=== PATIENT | female | born 1960 | race Two or more races ===

== ENCOUNTER 2018-02-07 15:11 | Emergency (ER) | payer OTHER ==
--- NOTE | 2018-02-07 15:24 | PDOC ---
Rapid Medical Evaluation Time Seen by Provider: 02/07/18 15:19 Medical Evaluation: 02/07/18 15:19 I have performed a brief in-person evaluation of the patient The patient presents with a chief complaint of: abdominal pain x 3 days with no nausea, vomiting or diarrhea. Denies constipation, last bowel movement 20 minutes ago normal Pertinent physical exam findings are: even and unlabored breathing hypactive bowels generalize abdominal tenderness I have ordered the following: labs ordered The patient will proceed to the ED for further evaluation. Discharge Disposition - Referrals Referrals: Mik Cardenas MD [Primary Care Provider] - - Patient Instructions - Post Discharge Activity
[2018-02-07 15:32] VITALS: PULSE 100; TEMP 98.7; BMI 36.3
[2018-02-07] MEDS ORDERED: ONDANSETRON 4 MG/2 ML VIAL IVPUSH ONE ×2 (15:46→17:29)
[2018-02-07] MEDS ORDERED: morphine CARPU-JECT 4 MG/1 ML DISP.SYRIN IVPUSH ONE ×3 (16:00→20:42)
[2018-02-07] MEDS ORDERED: morphine SULFATE 4 MG/ML VIAL ONE ×3 (16:01→20:46)
[2018-02-07] MEDS ORDERED: ONDANSETRON 4 MG/2 ML VIAL ONE ×3 (16:01→19:09)
--- NOTE | 2018-02-07 16:06 | PDOC ---
History of Present Illness - General Chief Complaint: Pain, Acute Stated Complaint: ABD PAIN Time Seen by Provider: 02/07/18 15:19 History Source: Patient Exam Limitations: No Limitations - History of Present Illness Initial Comments: 02/07/18 16:01 57 year old female with PMH diverticulitis (diagnosed 1-2 days ago), methadone use, DM, lupus, RA, asthma presenting to ED for abdominal pain x2-3 days. Her pain is located to the LUQ and LLQ, radiating to her general abdomen, alleviated by morphine, aggravated by naproxen and food, constant, 10/10. She also complains of nausea, vomiting (2X today), fever (101F) and chills. She denies diarrhea, chest pain, shortness of breath, blood in stool, hematemesis. Pt reports she did not take medication for her pain today. Pt states she was recently seen at [facility] for similar pain yesterday or the day before, had a CT performed, was diagnosed with diverticulitis, was discharged with Clindamycin and Naproxenprescription. She states she has returned to [facility] multiple times for her pain. She states she has taken her antibiotics. Pt recently completed a 6 day course of prednisone 10 mg, prescribed on . PCP - Dr. Cardenas Allergies - NKDA LMP - years ago Past History - Past Medical History Allergies/Adverse Reactions: Allergies Allergy/AdvReac Type Severity Reaction Status Date / Time Penicillins Allergy Verified 02/07/18 15:21 tomato Allergy Verified 02/07/18 15:22 Home Medications: Ambulatory Orders Clindamycin [Cleocin -] 300 mg PO TID 02/07/18 Methadone [Dolophine -] 10 mg PO DAILY 02/07/18 Pregabalin [Lyrica -] 200 mg PO TID 02/07/18 COPD: No Diabetes: Yes (insulin dep) Other medical history: chr back pain - Suicide/Smoking/Psychosocial Hx Smoking History: Current every day smoker Information on smoking cessation initiated: No Review of Systems - Review of Systems Able to Perform ROS?: Yes Comments:: 02/07/18 16:51 General: admits to fever, chills. HEENT: denies sore throat, rhinorrhea, ear pain. Heart: denies chest pain, palpitations, syncope, lower extremity swelling, diaphoresis. Respiratory: denies shortness of breath, cough, sputum production, hemoptysis. Abdomen: admits to abdominal pain, nausea, vomiting. denies diarrhea, constipation, blood in stool. : denies dysuria, increased urinary frequency, hematuria, urinary incontinence. Back: denies back pain. Musculoskeletal: denies joint pain, muscle pain, joint swelling. Neurological: denies headache, dizziness, numbness, tingling, weakness. Skin: denies rash, laceration, abrasion. *Physical Exam - Vital Signs Last Vital Signs Temp Pulse Resp BP Pulse Ox 98.7 F 100 H 20 168/102 H 100 02/07/18 15:11 02/07/18 15:11 02/07/18 15:11 02/07/18 15:11 02/07/18 15:11 - Physical Exam Comments: 02/07/18 16:17 Constitutional: Well-nourished, Well-developed, appearing stated age. obese. HEENT: head is normocephalic, atraumatic. EOMI. PERRLA. Neck: supple. Full ROM. Heart: regular rhythm. no murmurs, rubs or gallops. Lungs: clear to auscultation bilaterally. no crackles, rhonchi or wheezing. no stridor. Abdomen: soft, protuberant. tenderness to palpation of epigastrium, LLQ, LUQ. decreased bowel sounds. no rebound, masses. murphys sign negative. pt reports abdominal pain with CVA tenderness examination. pt reports abdominal pain with movement of the stretcher. Extremities: Peripheral pulses intact. No lower extremity edema. Neurological: CN 2-12 grossly intact. Moves all four extremities. Psych: awake, alert, oriented x3. Follows commands. Answers questions appropriately. ED Treatment Course - LABORATORY CBC & Chemistry Diagram: 02/07/18 16:00 02/07/18 17:10 - RADIOLOGY Radiology Studies Ordered: Category Date Time Status ABDOMEN FLAT & UPRIGHT [RAD] Stat Radiology 02/07/18 15:59 Ordered Medical Decision Making - Medical Decision Making 02/07/18 16:08 57 year old female with PMH methadone use, DM, lupus, asthma, RA presenting to ED for LUQ/LLQ abdominal pain. Initial Vital Signs Temp Pulse Resp BP Pulse Ox 98.7 F 100 H 20 168/102 H 100 02/07/18 15:11 02/07/18 15:11 02/07/18 15:11 02/07/18 15:11 02/07/18 15:11 Afebrile. Mony tachycardia. Hypertensive 168/102, possibly secondary to pain. No hypoxia. Concern for perforated diverticulitis, severe pain, diagnosed diverticulitis recently, left sided tenderness. - Pending CT A/P. Concern for kidney stone, left sided pain, writhing around, cannot get comfortable. - Pending UA. Low concern for ACS, left upper abdominal pain, Hx DM, female, vomiting. - Pending EKG, cardiac enzymes. 02/07/18 16:35 EKG performed at 1619 - Rate 99, NSR, normal axis, ST elevation identified V1, V2. Q WAVES V1, V2. No prior to compare. No chest pain. Likely aneurysm from prior ND. - Pt states naproxen has been giving her abdominal pain, holding ASA. - Pending cardiac enzymes. CBC WBC 11.3 K/mm3 (4.0-10.0) H 02/07/18 16:00 RBC 4.67 M/mm3 (3.60-5.2) 02/07/18 16:00 Hgb 13.1 GM/dL (10.7-15.3) 02/07/18 16:00 Hct 40.5 % (32.4-45.2) 02/07/18 16:00 MCV 86.6 fl (80-96) 02/07/18 16:00 MCH 28.0 pg (25.7-33.7) 02/07/18 16:00 MCHC 32.4 g/dl (32.0-36.0) 02/07/18 16:00 RDW 18.0 % (11.6-15.6) H 02/07/18 16:00 Plt Count 435 K/MM3 (134-434) H 02/07/18 16:00 MPV 10.4 fl (7.5-11.1) 02/07/18 16:00 Absolute Neuts (auto) 9.3 K/mm3 (1.5-8.0) H 02/07/18 16:00 Neutrophils % 82.8 % (42.8-82.8) 02/07/18 16:00 Lymphocytes % 12.5 % (8-40) 02/07/18 16:00 Monocytes % 3.6 % (3.8-10.2) L 02/07/18 16:00 Eosinophils % 0.4 % (0-4.5) 02/07/18 16:00 Basophils % 0.7 % (0-2.0) 02/07/18 16:00 Nucleated RBC % 0 % (0-0) 02/07/18 16:00 Leukocytosis - WBC 11.3 Left shift - Absolute Neutrophils 9.3 02/07/18 16:39 Pt reassessed, states nausea has resolved, describes pain as 7/10, no tenderness to palpation of epigastrium, decreased tenderness to LUQ and LLQ, playing skee ball on her phone. 02/07/18 16:57 Flagyl and Levaquin one time dose ordered. Lab report hemolyzed jungle top, reordered CMP and cardiac enzymes. 02/07/18 17:04 Pt now complains of vaginal itching, clear/milky discharge since starting her antibiotics. She states she frequently gets yeast infections due to her diabetes , and her symptoms feel similar to prior. Physical examination of genital area - normal external appearance, no lesions, small amount of white discharge noted. - Diflucan oral held, possibility of prolonging QT, already on levaquin and Zofran. 02/07/18 17:35 Pt unable to tolerate PO juice intake, unlikely to tolerate oral contrast. 4 mg Zofran ordered. 02/07/18 18:06 CMP Sodium 134 mmol/L (136-145) L 02/07/18 17:10 Potassium 4.2 mmol/L (3.5-5.1) 02/07/18 17:10 Chloride 100 mmol/L (98-107) 02/07/18 17:10 Carbon Dioxide 23 mmol/L (21-32) 02/07/18 17:10 Anion Gap 11 MMOL/L (8-16) 02/07/18 17:10 BUN 9 mg/dL (7-18) 02/07/18 17:10 Creatinine 0.6 mg/dL (0.55-1.3) 02/07/18 17:10 Creat Clearance w eGFR > 60 (>60) 02/07/18 17:10 Random Glucose 336 mg/dL (74-106) H* 02/07/18 17:10 Calcium 8.9 mg/dL (8.5-10.1) 02/07/18 17:10 Total Bilirubin 0.4 mg/dL (0.2-1) 02/07/18 17:10 AST 23 U/L (15-37) 02/07/18 17:10 ALT 18 U/L (13-61) 02/07/18 17:10 Alkaline Phosphatase 152 U/L (45-117) H 02/07/18 17:10 Creatine Kinase 84 IU/L (26-192) 02/07/18 17:10 Troponin I < 0.02 ng/ml (0.00-0.05) 02/07/18 17:10 Total Protein 7.3 g/dl (6.4-8.2) 02/07/18 17:10 Albumin 3.1 g/dl (3.4-5.0) L 02/07/18 17:10 Lipase 158 U/L (73-393) 02/07/18 17:10 Hyperglycemia, hx diabetes, possibly due to active infection, hx DM. Troponin negative. Lipase normal. Pancreatitis unlikely. 02/07/18 19:57 Urine Test Results Urine Color Ltyellow 02/07/18 17:39 Urine Appearance Clear 02/07/18 17:39 Urine pH 5.0 (5.0-8.0) 02/07/18 17:39 Ur Specific Hess[place] 1.032 (1.001-1.035) 02/07/18 17:39 Urine Protein 1+ (NEGATIVE) H 02/07/18 17:39 Urine Glucose (UA) 3+ (NEGATIVE) H 02/07/18 17:39 Urine Ketones 2+ (NEGATIVE) H 02/07/18 17:39 Urine Blood Negative (NEGATIVE) 02/07/18 17:39 Urine Nitrite Negative (NEGATIVE) 02/07/18 17:39 Urine Bilirubin Negative (<2.0 mg/dL) 02/07/18 17:39 Ur Leukocyte Esterase Negative (NEGATIVE) 02/07/18 17:39 Ur Epithelial Cells Rare /HPF (FEW) 02/07/18 17:39 Urine Mucus Rare 02/07/18 17:39 Urine positive for protein, glucose, ketones. No evidence of UTI. 02/07/18 20:43 Pt reports 10/10 abdominal pain, generalized tenderness to palpation, worse in LLQ. Morphine ordered. 02/07/18 23:28 [facility] ED called, they stated pt did not have radiological evidence of diverticulitis, had diverticulosis with some inflammation around the pancreas. 02/07/18 23:34 Pt states she is hungry. PO challenge given. 02/08/18 00:04 Pt tolerated PO challenge, states she would like to go home. Pt will be discharged with follow up instructions and strict return precautions. Pt has been told to stop taking the antibiotics prescribed to her. *DC/Admit/Observation/Transfer Diagnosis at time of Disposition: Abdominal pain, Candidiasis - Discharge Dispostion Disposition: HOME Condition at time of disposition: Stable Decision to Admit order: No - Referrals Referrals: Mik Cardenas MD [Primary Care Provider] - - Patient Instructions Printed Discharge Instructions: DI for Abdominal Pain-Adult Additional Instructions: You were seen today for abdominal pain. Your CT of your abdomen revealed - 8.5 mm nodule in the left lower lobe of your lung. It is recommended you get a CT scan of your chest outpatient to follow up. A moderate amount of fecal material was seen on your CT scan, without evidence for diverticulitis. No abscess was identified. Stop taking the antibiotics prescribed to you. Take Tylenol over the counter for pain. Return to the Emergency Department for increasing pain, vomiting, fever, chills , chest pain, shortness of breath, passing out, or any other new, worsening or concerning symptoms. Follow up with your primary care doctor within 5 days. Call their office Saturday and make an appointment for next week. Your care is not complete until you follow up. - Post Discharge Activity Forms/Work/School Notes: Back to Work
--- NOTE | 2018-02-07 16:24 | PDOC ---
Attending Attestation - HPI HPI: 02/07/18 16:47 The patient is a 57-year-old female with a past medical history significant for DM, Lupus, RA and Methadone use presents to the emergency department with abdominal pain. The patient reports she was diagnosed recently with Diverticulitis at [facility], presents today with similar pain. The patient presents with L. sided abdominal pain, with a known modifying factor that aggravated the pain with food, with relief noted with Morphine. - Medical Decision Making 02/07/18 16:48 Documentation prepared by Latha Wang, acting as medical collector for Florencio Guerra MD. <Latha Wang - Last Filed: 02/07/18 16:47> - Resident Resident Name: Rahel Handy - ED Attending Attestation I have performed the following: I have examined & evaluated the patient, The case was reviewed & discussed with the resident, I agree w/resident's findings & plan, Exceptions are as noted - Physicial Exam PE: 02/07/18 17:56 Patient is awake and alert, morbidly obese, in moderate distress PERRLA, EOMI, no scleral icterus CTA RRR Abdomen is soft, nondistended, moderate epigastric, left upper and left lower quadrant tenderness to palpation, with intact bowel sounds bilaterally. No palpable hernias are appreciated; no CVA tenderness bilaterally; - Medical Decision Making 02/07/18 17:57 57-year-old female with history of diabetes, SLE, rheumatoid arthritis, recently diagnosed with diverticulitis at [facility] and treated with 2 days of by mouth clindamycin presents with worsening abdominal pain, numerous episodes of vomiting, persistent nausea and fever of 102 prior to arrival. I suspect failure of by mouth clindamycin. Will obtain CT with by mouth and IV contrast to rule out perforation versus abscess formation. We'll keep nothing by mouth. We'll administer IV fluids and IV antibiotics. Will admit 02/07/18 19:[address] We'll administer additional dose of Zofran. IV antibiotics administered. Awaiting CT results. 02/07/18 21:50 Patient reassessed. Patient is resting comfortably at this time. CT that and pelvis reveals a stable lung nodule measuring 8.5 mm. Diverticulosis but no diverticulitis is noted. There is no evidence of acute appendicitis. I contacted the BAR WAITER/WAITRESS at [facility] who reports the patient's CAT scan on February 05 of this year is similar without any evidence of diverticulitis. At this time, will observe patient and likely discharge if she tolerates by mouth. <Florencio Guerra - Last Filed: 02/07/18 21:51>
[2018-02-07 16:31] LABS: BASO % 0.7 % (0-2.0); EOS % 0.4 % (0-4.5); HEMATOCRIT 40.5 % (32.4-45.2); HEMOGLOBIN 13.1 GM/dL (10.7-15.3); LYMPH % 12.5 % (8-40); MCHC 32.4 g/dl (32.0-36.0); MEAN CELL VOLUME 86.6 fl (80-96); MEAN PLT VOLUME 10.4 fl (7.5-11.1); MONO % 3.6 % (3.8-10.2); NEUT % 82.8 % (42.8-82.8); PLATELET COUNT 435 K/MM3 (134-434); RBC 4.67 M/mm3 (3.60-5.2); WHITE BLOOD COUNT 11.3 K/mm3 (4.0-10.0)
[2018-02-07] MEDS ORDERED: SODIUM CHLORIDE 1,000 ML IV STA (16:32)
[2018-02-07 18:03] LABS: ALBUMIN 3.1 g/dl (3.4-5.0); ALK PHOS 152 U/L (45-117); ANION GAP 11 MMOL/L (8-16); BILIRUBIN,TOTAL 0.4 mg/dL (0.2-1); BLOOD UREA NITROGEN 9 mg/dL (7-18); CALCIUM 8.9 mg/dL (8.5-10.1); CHLORIDE 100 mmol/L (98-107); CO2 23 mmol/L (21-32); CREATININE 0.6 mg/dL (0.55-1.3); LIPASE 158 U/L (73-393); POTASSIUM 4.2 mmol/L (3.5-5.1); SGOT/AST 23 U/L (15-37); SGPT/ALT 18 U/L (13-61); SODIUM 134 mmol/L (136-145); TOT PROT 7.3 g/dl (6.4-8.2)
[2018-02-07 18:05] LABS: GLUCOSE,RANDOM 336 mg/dL (74-106)
[2018-02-07 18:51] LABS: URINE APPEARANCE CLEAR; URINE BILIRUBIN NEGATIVE (<2.0 mg/dL); URINE COLOR LTYELLOW; URINE GLUCOSE (UA) 3+ (NEGATIVE); URINE KETONE 2+ (NEGATIVE); URINE LEUK ESTERASE NEGATIVE (NEGATIVE); URINE NITRITE NEGATIVE (NEGATIVE); URINE UROBILINOGEN NEGATIVE mg/dL (0.2-1.0)
[2018-02-07 18:56] LABS: URINE PROTEIN 1+ (NEGATIVE)
[2018-02-07 19:01] LABS: EPI CELLS RARE /HPF (FEW); URINE MUCUS RARE
[2018-02-07] MEDS ORDERED: ONDANSETRON 4 MG/2 ML VIAL IVPB ONE (19:08)
[2018-02-07 22:11] VITALS: BP 141/77
--- NOTE | 2018-02-08 23:18 | EKG ---
Test Reason : Blood Pressure : / mmHG Vent. Rate : 099 BPM Atrial Rate : 099 BPM P-R Int : 166 ms QRS Dur : 114 ms QT Int : 380 ms P-R-T Axes : 062 -22 055 degrees QTc Int : 487 ms NORMAL SINUS RHYTHM POSSIBLE LEFT ATRIAL ENLARGEMENT LEFT VENTRICULAR HYPERTROPHY CANNOT RULE OUT SEPTAL INFARCT , AGE UNDETERMINED ABNORMAL ECG NO PREVIOUS ECGS AVAILABLE Confirmed by GUIDO GEORGE MD ([id number]) on 02/08/2018 11:18:05 PM Referred By: Confirmed By:GUIDO GEORGE MD
== END 2018-02-08 00:29 | disposition home or self-care (01) ==
LOC: JER 15:11
PROC: 3E033GC Introduction of Other Therapeutic Substance into Peripheral Vein, Percutaneous Approach (ICD-10-PCS; principal; 2018-02-07)
PROC: 3E033NZ Introduction of Analgesics, Hypnotics, Sedatives into Peripheral Vein, Percutaneous Approach (ICD-10-PCS; 2018-02-07)
PROC: 3E0337Z Introduction of Electrolytic and Water Balance Substance into Peripheral Vein, Percutaneous Approach (ICD-10-PCS; 2018-02-07)
PROC: 3E03329 Introduction of Other Anti-infective into Peripheral Vein, Percutaneous Approach (ICD-10-PCS; 2018-02-07)
DX: R10.9 Unspecified abdominal pain (principal); B37.9 Candidiasis, unspecified; E11.9 Type 2 diabetes mellitus without complications; M32.9 Systemic lupus erythematosus, unspecified; M06.9 Rheumatoid arthritis, unspecified; J45.909 Unspecified asthma, uncomplicated
CPT/HCPCS: 36415; 74177-TC; 80053; 81003; 81015; 82550; 83690; 84484; 85025; 87086; 93005; 93010; 96361; 96365; 96368; 96375; 96376; 99283-25; J7030

== ENCOUNTER 2018-02-26 14:04 | Inpatient (IN) | payer OTHER ==
--- NOTE | 2018-02-26 15:19 | PDOC ---
History of Present Illness - General Chief Complaint: Pain, Acute Stated Complaint: ULCER Time Seen by Provider: 02/26/18 15:17 - History of Present Illness Initial Comments: 57yo F with PMh of HTN, DM, lupus, RA, on methadone presenting with epigastric pain. Patient was sent by her PCP, Dr. Cardenas, for evaluation as he believes she has an ulcer. Pain started about two weeks ago, is rated 8/10 and is constant with intermittent worsening in severity. It gets worse with eating. Patient reports nausea and some vomiting. Last bowel movement was today and was normal formed brown stool without blood. About a week ago, patient reported constipation for which her gave her an unknown substance which helped clear her out and produced dark stool. No history of abdominal surgeries. Denies heavy NSAID use. Patient denies fevers, but reports chills. She also has had 2/10 non-radiating chest pain for the last two weeks which she associates with her epigastric pain. No shortness of breath, no hematuria or dysuria, no lightheadedness. Past History - Past Medical History Allergies/Adverse Reactions: Allergies Allergy/AdvReac Type Severity Reaction Status Date / Time Penicillins Allergy Severe Verified 02/26/18 17:52 tomato Allergy Verified 02/26/18 14:31 Home Medications: Ambulatory Orders Methadone [Dolophine -] 10 mg PO DAILY 02/07/18 Pregabalin [Lyrica -] 200 mg PO TID 02/07/18 Insulin Detemir [Levemir Flextouch] 94 unit SQ HS 02/26/18 Novolog 18 unit BID 02/26/18 COPD: No Diabetes: Yes (insulin dep) - Suicide/Smoking/Psychosocial Hx Smoking History: Current every day smoker Information on smoking cessation initiated: No Review of Systems - Review of Systems Comments:: Constitutional: no fever, +chills Cardiovascular: +chest pain, no palpitations Respiratory: no cough, no shortness of breath Gastrointestinal: +abdominal pain, +nausea, +vomiting, no diarrhea, no constipation Genitourinary: no dysuria, no frequency Musculoskeletal: no myalgia, no arthralgia Skin: no rash, no itching Neurologic: no headache, no dizziness *Physical Exam - Vital Signs Last Vital Signs Temp Pulse Resp BP Pulse Ox 98.3 F 103 H 22 H 126/74 97 02/26/18 14:32 02/26/18 14:32 02/26/18 14:32 02/26/18 14:32 02/26/18 14:32 - Physical Exam Comments: General: Awake, alert, and fully oriented, in no acute distress Head: no signs of trauma Eyes: EOMI, sclera anicteric ENT: Moist mucus membranes Neck: Normal ROM, supple Lungs: Lungs clear, Normal breath sounds Cardio: Regular rhythm, S1 and S2 present Abdomen: Tender to palpation in epigastrium, Soft, No guarding, no rebound, no masses Extremities: Normal range of motion, Distal pulses present SKIN: Warm, Dry, normal turgor Neurologic: Cranial nerves II through XII grossly intact. Normal speech Rectal: The skin is without erythema or induration. Skin tags present at 12 o clock. No external hemorrhoids, fissures, warts, or discharge. Sphincter tone normal. There are no masses palpated on digital exam. ED Treatment Course - LABORATORY CBC & Chemistry Diagram: 02/26/18 15:40 02/26/18 16:48 Medical Decision Making - Medical Decision Making 57yo F with PMh of HTN, DM, lupus, RA, on methadone presenting with epigastric pain. -DDX includes but not limited to peptic ulcer, duodenal ulcer, pancreatitis, cholecystitis, ACS, GERD, H. pylori -EKG: rate 80, QTc 463, NSR, no acute changes when compared to previous study on 02/07/18 -Labs: No anemia or leukocytosis, FOBT negative -CXR: no acute pathology -IV NS maintenance -NPO -Maalox, carafate, protonix: patient endorsing worsening pain. Repeat abdominal exam unchanged. Patient reports that she is hungry, however, she is NPO. Ordered 4 of morphine -Discussed patient with Dr. Oakes who accepted patient for admission under attending, Dr. Cardenas, as patient likely needs EGD 02/26/18 19:02 *DC/Admit/Observation/Transfer Diagnosis at time of Disposition: Epigastric abdominal pain - Discharge Dispostion Condition at time of disposition: Stable Decision to Admit order: Yes - Referrals Referrals: Mik Cardenas MD [Primary Care Provider] - Roberto Lebron DO [Staff Physician] - - Patient Instructions - Post Discharge Activity
[2018-02-26 16:09] LABS: BASO % 0.8 % (0-2.0); EOS % 3.3 % (0-4.5); HEMATOCRIT 37.1 % (32.4-45.2); LYMPH % 23.4 % (8-40); MCHC 32.2 g/dl (32.0-36.0); MEAN CELL VOLUME 86.9 fl (80-96); MEAN PLT VOLUME 9.8 fl (7.5-11.1); MONO % 3.9 % (3.8-10.2); NEUT % 68.6 % (42.8-82.8); PLATELET COUNT 416 K/MM3 (134-434); RBC 4.27 M/mm3 (3.60-5.2); WHITE BLOOD COUNT 9.9 K/mm3 (4.0-10.0)
--- NOTE | 2018-02-26 16:14 | PDOC ---
Attending Attestation - HPI HPI: Pt is a57 F, PMHx of diverticulitis, methadone use, DM, lupus, RA, asthma, HTN, who was sent by her PCP for abdominal pain. Patient describes the pain as intermittent, epigastric, increasing severity, rates 8/10 with associated nausea, vomit and chills. Denies fever, diarrhea. PCP: Dr. Cardenas. <Marychuy Hayes - Last Filed: 02/26/18 17:04> - Resident Resident Name: Day To - ED Attending Attestation I have performed the following: I have examined & evaluated the patient, The case was reviewed & discussed with the resident, I agree w/resident's findings & plan, Exceptions are as noted - Physicial Exam PE: 02/26/18 17:47 Patient is awake and alert, obese, in mild distress Normocephalic and atraumatic PERRLA, EOMI, no scleral icterus CTA RRR Abdomen is soft, distended, mild to moderate epigastric and left upper quadrant tenderness to palpation without guarding rebound; bowel sounds are present in all 4 quadrants; no CVA tenderness - Medical Decision Making 02/26/18 17:48 57-year-old female with multiple comorbidities presents with several weeks of worsening epigastric and left upper quadrant pain that is exacerbated immediately postprandially. Patient also endorses history of several days of melena. In the ER, patient is awake and alert, mildly tachycardic with hematocrit of 37 (previously noted hematocrit was 40); differential diagnoses includes esophagitis versus gastritis versus peptic ulcer disease. We'll administer PPIs and Carafate. Will keep nothing by mouth with IV fluid maintenance. Will consult GI. Likely admission. <Florencio Guerra - Last Filed: 02/26/18 17:48>
[2018-02-26] MEDS ORDERED: MAG HYDROX/AL HYDROX/SIMETH -MYLANTA- ORAL SUSPENSION PO ONE (16:17)
[2018-02-26] MEDS ORDERED: PANTOPRAZOLE SODIUM 40 MG VIAL IVPUSH ONE (16:17)
[2018-02-26] MEDS ORDERED: SUCRALFATE 1 GM/10 ML UNIT DOSE CUPS PO ONE (16:19)
[2018-02-26 16:41] LABS: INR 1.01 (0.83-1.09); PROTHROMBIN TIME (PATIENT) 11.9 SEC (9.7-13.0)
[2018-02-26 16:44] LABS: URINE APPEARANCE CLEAR; URINE COLOR AMBER; URINE GLUCOSE (UA) NEGATIVE (NEGATIVE); URINE KETONE TRACE (NEGATIVE); URINE LEUK ESTERASE TRACE (NEGATIVE); URINE NITRITE NEGATIVE (NEGATIVE); URINE PROTEIN 2+ (NEGATIVE)
[2018-02-26] MEDS ORDERED: ONDANSETRON 4 MG/2 ML VIAL IVPUSH ONE (16:56)
[2018-02-26 17:11] LABS: EPI CELLS RARE /HPF (FEW); URINE HYALINE CAST 12 /lpf; URINE MUCUS MODERATE
[2018-02-26] MEDS ORDERED: SODIUM CHLORIDE 1,000 ML IV SCH (17:15)
[2018-02-26] MEDS ORDERED: ONDANSETRON 4 MG/2 ML VIAL ONE (17:25)
[2018-02-26] MEDS ORDERED: MAG HYDROX/AL HYDROX/SIMETH 30 ML UNIT-DOSE CUP ONE (17:25)
[2018-02-26] MEDS ORDERED: PANTOPRAZOLE SODIUM 40 MG VIAL ONE (17:26)
[2018-02-26 17:52] LABS: ALBUMIN 2.8 g/dl (3.4-5.0); ALK PHOS 164 U/L (45-117); ANION GAP 6 MMOL/L (8-16); BILIRUBIN,TOTAL 0.1 mg/dL (0.2-1); BLOOD UREA NITROGEN 9 mg/dL (7-18); CALCIUM 9.1 mg/dL (8.5-10.1); CHLORIDE 103 mmol/L (98-107); CO2 29 mmol/L (21-32); CREATININE 0.6 mg/dL (0.55-1.3); GLUCOSE,RANDOM 112 mg/dL (74-106); POTASSIUM 4.2 mmol/L (3.5-5.1); SGOT/AST 29 U/L (15-37); SGPT/ALT 22 U/L (13-61); SODIUM 138 mmol/L (136-145); TOT PROT 6.9 g/dl (6.4-8.2)
[2018-02-26 17:54] LABS: HCG,QUALITATIVE URINE Negative
[2018-02-26] MEDS ORDERED: morphine CARPU-JECT 4 MG/1 ML DISP.SYRIN IVPUSH ONE (18:56)
[2018-02-26] MEDS ORDERED: morphine SULFATE 4 MG/ML VIAL ONE (19:10)
--- NOTE | 2018-02-26 20:21 | HP ---
CHIEF COMPLAINT: abdominal pain PCP: Dr. 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 Who presents to the ED with worsening epigastric cramping pain radiating to the left upper quadrant with nausea x several days, with an episode of brown emesis- bilious. Patient also reports an episode of melena several days ago now resolved. Patient reports being treated at [facility] and was diagnosed as having diverticulosis. She reports being seen here on February 07 for same complaint. Patient reports taking her 's Docusate last Saturday secondary to her being constipated. She states" I was cleaned out I went to the bathroom all day ". Patient reports last BM yesterday Brown-soft. Patient denies fever, chills, cough, dizziness, headache, SOB, CP, hematochezia, hematuria or dysuria. Patient denies eating undercooked meat. Patient reports last Colonoscopy 2016- result neg (per pt). Patient has never had an EGD. ER course was notable for: (1) Stool Occult- neg (2) Lipase- 123 (3) Chest Xray- no acute pathology Recent Travel: None PAST MEDICAL HISTORY: See HPI PAST SURGICAL HISTORY: Social History: Smoking: Cigarettes 1PPD Alcohol: Denies Drugs: Former- Heroin 25 yrs ago on Methadone Family History: Father: DM, Renal Failure, Amputee Mother: Lung Ca Siblings: Alive and Well Maternal Grandmother: Stomach Ca, DM Paternal Grandmother: Breast Ca, DM Allergies Penicillins Allergy (Severe, Verified 02/26/18 17:52) "Heart stopped" when she was a baby, as per pt tomato Allergy (Verified 02/26/18 14:31) HOME MEDICATIONS: Home Medications Medication Instructions Recorded Methadone [Dolophine -] 10 mg PO DAILY 02/07/18 Pregabalin [Lyrica -] 200 mg PO TID 02/07/18 Insulin Detemir [Levemir Flextouch] 94 unit SQ HS 02/26/18 Novolog 18 unit BID 02/26/18 REVIEW OF SYSTEMS CONSTITUTIONAL: Absent: fever, chills, diaphoresis, generalized weakness, malaise, loss of appetite, weight change HEENT: Absent: rhinorrhea, nasal congestion, throat pain, throat swelling, difficulty swallowing, mouth swelling, ear pain, eye pain, visual changes CARDIOVASCULAR: Absent: chest pain, syncope, palpitations, irregular heart rate, lightheadedness , peripheral edema RESPIRATORY: Absent: cough, shortness of breath, dyspnea with exertion, orthopnea, wheezing, stridor, hemoptysis GASTROINTESTINAL: abdominal pain, nausea, vomiting, constipation, melena Absent: abdominal distension, diarrhea, hematochezia GENITOURINARY: Absent: dysuria, frequency, urgency, hesitancy, hematuria, flank pain, genital pain MUSCULOSKELETAL: Absent: myalgia, arthralgia, joint swelling, back pain, neck pain SKIN: Absent: rash, itching, pallor HEMATOLOGIC/IMMUNOLOGIC: Absent: easy bleeding, easy bruising, lymphadenopathy, frequent infections ENDOCRINE: Absent: unexplained weight gain, unexplained weight loss, heat intolerance, cold intolerance NEUROLOGIC: Absent: headache, focal weakness or paresthesias, dizziness, unsteady gait, seizure, mental status changes, bladder or bowel incontinence PSYCHIATRIC: Absent: anxiety, depression, suicidal or homicidal ideation, hallucinations. PHYSICAL EXAMINATION Vital Signs - 24 hr 02/26/18 02/26/18 14:32 19:53 Temperature 98.3 F 98.4 F Pulse Rate 103 H Pulse Rate [ 87 Left Radial] Respiratory 22 H 17 Rate Blood Pressure 126/74 Blood Pressure 156/66 [Right Arm] O2 Sat by Pulse 97 99 Oximetry (%) GENERAL: Awake, alert, and fully oriented, in no acute distress. HEAD: Normal with no signs of trauma. EYES: Pupils equal, round and reactive to light, extraocular movements intact, sclera anicteric, conjunctiva clear. No lid lag. EARS, NOSE, THROAT: Dry mucous membranes. Ears normal, nares patent, oropharynx clear without exudates. NECK: Normal range of motion, supple without lymphadenopathy, JVD, or masses. LUNGS: Breath sounds equal, clear to auscultation bilaterally. No wheezes, and no crackles. No accessory muscle use. HEART: Regular rate and rhythm, normal S1 and S2 without murmur, rub or gallop. ABDOMEN: Obese, soft, epigastric tenderness,hypoactive bowel sounds, not distended, no guarding, no rebound, no masses. No hepatomegaly or splenomegaly. MUSCULOSKELETAL: Normal range of motion at all joints. No bony deformities or tenderness. No CVA tenderness. UPPER EXTREMITIES: 2+ pulses, warm, well-perfused. No cyanosis. No clubbing. No peripheral edema. LOWER EXTREMITIES: 2+ pulses, warm, well-perfused. No calf tenderness. No peripheral edema. NEUROLOGICAL: Cranial nerves II-XII intact. Normal speech. Gait not observed. PSYCHIATRIC: Cooperative. Good eye contact. Appropriate mood and affect. SKIN: Warm, dry, normal turgor, no rashes or lesions noted, normal capillary refill. Laboratory Results - last 24 hr 02/26/18 02/26/18 02/26/18 15:40 15:40 15:40 WBC 9.9 RBC 4.27 Hgb 12.0 Hct 37.1 MCV 86.9 MCH 28.0 MCHC 32.2 RDW 18.0 H Plt Count 416 MPV 9.8 Absolute Neuts (auto) 6.8 Neutrophils % 68.6 Lymphocytes % 23.4 D Monocytes % 3.9 Eosinophils % 3.3 D Basophils % 0.8 Nucleated RBC % 0 PT with INR 11.90 INR 1.01 Sodium Cancelled Potassium Cancelled Chloride Cancelled Carbon Dioxide Cancelled Anion Gap Cancelled BUN Cancelled Creatinine Cancelled Creat Clearance w eGFR Cancelled Random Glucose Cancelled Calcium Cancelled Total Bilirubin Cancelled AST Cancelled ALT Cancelled Alkaline Phosphatase Cancelled Troponin I Total Protein Cancelled Albumin Cancelled Urine Color Urine Appearance Urine pH Ur Specific [place] Urine Protein Urine Glucose (UA) Urine Ketones Urine Blood Urine Nitrite Urine Bilirubin Urine Urobilinogen Ur Leukocyte Esterase Urine WBC (Auto) Urine RBC (Auto) Ur Epithelial Cells Hyaline Casts Urine Mucus Urine HCG, Qual Stool Occult Blood Blood Type Antibody Screen 02/26/18 02/26/18 02/26/18 16:00 16:16 16:48 WBC RBC Hgb Hct MCV MCH MCHC RDW Plt Count MPV Absolute Neuts (auto) Neutrophils % Lymphocytes % Monocytes % Eosinophils % Basophils % Nucleated RBC % PT with INR INR Sodium 138 Potassium 4.2 Chloride 103 Carbon Dioxide 29 Anion Gap 6 L BUN 9 Creatinine 0.6 Creat Clearance w eGFR > 60 Random Glucose 112 H Calcium 9.1 Total Bilirubin 0.1 L AST 29 ALT 22 Alkaline Phosphatase 164 H Troponin I < 0.02 Total Protein 6.9 Albumin 2.8 L Urine Color [place] Urine Appearance Clear Urine pH 5.0 Ur Specific [place] 1.028 Urine Protein 2+ H Urine Glucose (UA) Negative Urine Ketones Trace H Urine Blood Negative Urine Nitrite Negative Urine Bilirubin 2.0 Urine Urobilinogen 2.0 H Ur Leukocyte Esterase Trace Urine WBC (Auto) 3 Urine RBC (Auto) 1 Ur Epithelial Cells Rare Hyaline Casts 12 Urine Mucus Moderate Urine HCG, Qual Negative Stool Occult Blood Blood Type O POSITIVE Antibody Screen Negative 02/26/18 18:09 WBC RBC Hgb Hct MCV MCH MCHC RDW Plt Count MPV Absolute Neuts (auto) Neutrophils % Lymphocytes % Monocytes % Eosinophils % Basophils % Nucleated RBC % PT with INR INR Sodium Potassium Chloride Carbon Dioxide Anion Gap BUN Creatinine Creat Clearance w eGFR Random Glucose Calcium Total Bilirubin AST ALT Alkaline Phosphatase Troponin I Total Protein Albumin Urine Color Urine Appearance Urine pH Ur Specific [place] Urine Protein Urine Glucose (UA) Urine Ketones Urine Blood Urine Nitrite Urine Bilirubin Urine Urobilinogen Ur Leukocyte Esterase Urine WBC (Auto) Urine RBC (Auto) Ur Epithelial Cells Hyaline Casts Urine Mucus Urine HCG, Qual Stool Occult Blood Negative Blood Type Antibody Screen ASSESSMENT/PLAN: This is a 57 y/o woman with a PMHx of HTN, DM, Lupus, RA, Asthma, Former Heroin Abuse (on Methadone). Placed in Observation for Intractable Epigastric Abdominal Pain for further evaluation of their emergent condition. Plan: FEN D51/2NS@75ml/hr Replete lytes prn NPO DVT ppx OOB SCDs Consider AC if LOS > 48 hrs Code Status: Full Code Dispo: Observation Problem List - Problem (1) Epigastric abdominal pain Assessment/Plan: ?ulcer vs gastritis No leukocytosis, Lipase-nl Amylase-pending Appreciate GI consult IVF Zofran prn Tylenol prn PPI Consider Morphine Sulfate judiciously PS 8-10 Repeat CBC, BMP in am NPO Code(s): R10.13 - EPIGASTRIC PAIN (2) HTN (hypertension) Assessment/Plan: Sub-optimal, now controlled Monitor BP No current meds Consider Thiazide, KIERRA Monitor renal function Code(s): I10 - ESSENTIAL (PRIMARY) HYPERTENSION (3) Diabetes mellitus Assessment/Plan: Stable BGMs Hold Levemir and Novolog for now secondary to pt is NPO, Glucose 112 Consider Endocrinology consult for insulin regimen adjustment on high dose of Long Acting HgbA1c in am Code(s): E11.9 - TYPE 2 DIABETES MELLITUS WITHOUT COMPLICATIONS (4) Asthma Assessment/Plan: Stable No active flares Albuterol neb prn Peak flows Code(s): J45.909 - UNSPECIFIED ASTHMA, UNCOMPLICATED (5) Lupus Assessment/Plan: Will continue to monitor and treat with interventions accordingly No current med Code(s): L93.0 - DISCOID LUPUS ERYTHEMATOSUS (6) Arthritis, rheumatoid Code(s): M06.9 - RHEUMATOID ARTHRITIS, UNSPECIFIED (7) Depression Assessment/Plan: Continue Duloxetine, Citalopram Monitor QT/QTc for prolonged QT f/u with Psych in outpatient as needed Code(s): F32.9 - MAJOR DEPRESSIVE DISORDER, SINGLE EPISODE, UNSPECIFIED (8) History of heroin abuse Assessment/Plan: - Continue Methadone Will have Day Team verify dosing with [facility] Code(s): Z87.898 - PERSONAL HISTORY OF OTHER SPECIFIED CONDITIONS Visit type - Emergency Visit Emergency Visit: Yes ED Registration Date: 02/26/18 Care time: The patient presented to the Emergency Department on the above date and was hospitalized for further evaluation of their emergent condition. - New Patient This patient is new to me today: Yes Date on this admission: 02/26/18 - Critical Care Critical Care patient: No
[2018-02-26] MEDS ORDERED: FAMOTIDINE 20 MG/50 ML IVPB 20 MG/50 ML MG IVPB ONE (21:06)
[2018-02-26] MEDS ORDERED: HEPARIN NA (PORCINE) 5,000 UNITS/ML 1ML VIAL ONE (21:06)
[2018-02-26] MEDS: DEXTROSE 5%-0.45% SALINE 1,000 ML IV SCH (21:20)
[2018-02-26] MEDS: DULoxetine HCL 30 MG CAPSULE.DR (FP) PO SCH (23:50)
[2018-02-26] MEDS: PREGABALIN 100 MG CAPSULE PO SCH (23:50)
[2018-02-27 00:44] VITALS: BMI 45.8
[2018-02-27] MEDS: DULoxetine HCL 30 MG CAPSULE.DR (FP) PO SCH ×3 (06:19→21:18)
[2018-02-27] MEDS: PREGABALIN 100 MG CAPSULE PO SCH ×3 (06:19→21:18)
[2018-02-27] MEDS ORDERED: ACETAMINOPHEN 1000 MG/100 ML VIAL (NON FORMULARY) IVPB PRN (07:07)
[2018-02-27 07:15] LABS: BASO % 0.6 % (0-2.0); EOS % 3.8 % (0-4.5); HEMATOCRIT 36.9 % (32.4-45.2); HEMOGLOBIN 11.6 GM/dL (10.7-15.3); LYMPH % 31.4 % (8-40); MCH 27.7 pg (25.7-33.7); MCHC 31.4 g/dl (32.0-36.0); MEAN CELL VOLUME 88.3 fl (80-96); MEAN PLT VOLUME 9.5 fl (7.5-11.1); MONO % 4.6 % (3.8-10.2); NEUT % 59.6 % (42.8-82.8); PLATELET COUNT 364 K/MM3 (134-434); RBC 4.18 M/mm3 (3.60-5.2); RDW 17.9 % (11.6-15.6); WHITE BLOOD COUNT 8.8 K/mm3 (4.0-10.0)
[2018-02-27] MEDS ORDERED: METHADONE HCL 10 MG TABLET PO SCH (07:15)
[2018-02-27 07:37] LABS: AMYLASE 40 U/L (25-115); ANION GAP 5 MMOL/L (8-16); BLOOD UREA NITROGEN 7 mg/dL (7-18); CALCIUM 8.8 mg/dL (8.5-10.1); CHLORIDE 107 mmol/L (98-107); CO2 27 mmol/L (21-32); CREATININE 0.4 mg/dL (0.55-1.3); GLUCOSE,RANDOM 128 mg/dL (74-106); POTASSIUM 4.2 mmol/L (3.5-5.1); SODIUM 138 mmol/L (136-145)
--- NOTE | 2018-02-27 08:50 | CON.GI ---
Consult Consult Specialty:: GI Referred by:: Dr. Cardenas Reason for Consultation:: Epigastric pain - History of Present Illness Chief Complaint: Upper abdominal pain History of Present Illness: 57F admitted for evaluation of upper abdominal pain. She states that her pain started about a month ago and has been constant at times. Initially there was associated vomiting and now she experiences persistent nausea. She had an unrevealing contrast CT scan of the abdomen and pelvis 02/07/18 aside from a lung nodule. She denies OTC NSAID use aside from ASA 81mg daily. She denies associated rectal bleeding, melena, diarrhea, unintentional weight loss, food fear, fevers/chills. She states that her blood glucose is "always off the charts" and remembers it being 600 about 3 days ago. She believes that she had a colonoscopy 2 years ago at [facility] that was "OK". She has never had an upper endoscopy. There is no family history of colorectal cancer or other GI malignancy. She is on methadone but denies h/o IVDA/DA - History Source History Provided By: Patient, Medical Record Limitations to Obtaining History: No Limitations - Past Medical History ...: No Rheumatology: Yes: Lupus, Rheumatoid Arthritis Endocrine: Yes: Diabetes Mellitus Additional Medical History: Obesity - Past Surgical History Additional Surgical History: Denies - Alcohol/Substance Use Hx Alcohol Use: No History of Substance Use: reports: None - Smoking History Smoking history: Current some day smoker Have you smoked in the past 12 months: No Aproximately how many cigarettes per day: 3 - Social History Usual Living Arrangement: With Spouse ADL: Independent Place of : [facility] History of Recent Travel: No Home Medications - Allergies Allergies/Adverse Reactions: Allergies Allergy/AdvReac Type Severity Reaction Status Date / Time Penicillins Allergy Severe Verified 02/26/18 17:52 tomato Allergy Verified 02/26/18 14:31 - Home Medications Home Medications: Ambulatory Orders Methadone [Dolophine -] 10 mg PO DAILY 02/07/18 Pregabalin [Lyrica -] 200 mg PO TID 02/07/18 Insulin Detemir [Levemir Flextouch] 94 unit SQ HS 02/26/18 Novolog 18 unit BID 02/26/18 Family Disease History - Family Disease History Family Disease History: Other: Father (: diabetic complications), Mother ( : 70's: Lung Ca), Brother (2, healthy), Sister (2, healthy), Son (1, healthy ), Daughter (2. healthy) Other Family History: No family history of colorectal cancer or other GI malignancy Review of Systems - Review of Systems Constitutional: denies: Unintentional Wgt. Loss Cardiovascular: denies: Chest Pain Respiratory: denies: Cough Gastrointestinal: reports: Abdominal Pain, Nausea, Vomiting (resolved). denies : Constipation, Diarrhea, Dysphagia, Melena, Rectal Bleeding Physical Exam-GI Vital Signs: Vital Signs Temperature 98.4 F 02/27/18 06:42 Pulse Rate 80 02/27/18 06:42 Respiratory Rate 20 02/27/18 06:42 Blood Pressure 126/72 02/27/18 06:42 O2 Sat by Pulse Oximetry (%) 98 02/27/18 05:00 Constitutional: Yes: Calm Eyes: No: Sclera Icterus Cardiovascular: Yes: Regular Rate and Rhythm. No: Murmur Respiratory: Yes: CTA Bilaterally Gastrointestinal Inspection: No: Distention, Scars ...Auscultate: Yes: Normoactive Bowel Sounds ...Palpate: Yes: Soft, Tenderness (marked TTP in epigastrium) ...Percussion: No: Tympanitic ...Rectal Exam: Yes: Other ([employer] present: no external lesions, no masses, light brown stool, guaiac negative) Edema: No (No LE edema) Neurological: Yes: Alert, Oriented Labs: CBC, BMP 02/27/18 06:00 02/27/18 06:00 INR, PTT INR 1.01 (0.83-1.09) 02/26/18 15:40 Hepatic Panel Total Bilirubin 0.1 mg/dL (0.2-1) L 02/26/18 16:48 AST 29 U/L (15-37) 02/26/18 16:48 ALT 22 U/L (13-61) 02/26/18 16:48 Alkaline Phosphatase 164 U/L (45-117) H 02/26/18 16:48 Albumin 2.8 g/dl (3.4-5.0) L 02/26/18 16:48 Problem List - Problems (1) Epigastric pain Assessment/Plan: Of unclear etiology. I suspect that her poor glycemic control is likely playing a role by altering her mitolity leading to gastroparesis I have ordered UGIS as well as abd US (particularly given elevated ALP) and doppler of portal vein. Advance to diabetic clears pending findings from the above Discussed EGD if the above unrevealing. Discussed potential riskls of the procedure like but not limited to bleeding, perforation requiring surgery to repair, infection sedation medication effects all of which could be potentially life threatening. She has agreed to the procedure. Check GGT. If normal, non-liver etiology of elevated ALP would need to be excluded ie. bone source, per PMD Follow-up of lung nodule noted on previous CT scan Protonix 40mg PO daily Glycemic control Code(s): R10.13 - EPIGASTRIC PAIN
[2018-02-27] MEDS: CITALOPRAM HYDROBROMIDE 20 MG TABLET (FP) PO SCH (09:47)
--- NOTE | 2018-02-27 10:25 | PN ---
Progress Note, Physician Chief Complaint: ASLEEP COMFORTABLE EVENTS AND NOTES REVIEWED - Current Medication List Current Medications: Active Medications Acetaminophen (Ofirmev Injection -) 1,000 mg IVPB Q6H PRN PRN Reason: PAIN OR FEVER Citalopram Hydrobromide (Celexa -) 20 mg PO DAILY [facility] Duloxetine HCl (Cymbalta -) 30 mg PO TID [facility] Last Admin: 02/27/18 06:19 Dose: 30 mg Dextrose/Sodium Chloride (D5-1/2ns -) 1,000 mls @ 75 mls/hr IV ASDIR [facility] Last Admin: 02/26/18 21:20 Dose: 75 mls/hr Methadone HCl (Dolophine -) 10 mg PO DAILY@0600 [facility] Nicotine (Nicoderm Patch -) 14 mg TD DAILY [facility] Pantoprazole Sodium (Protonix Iv) 40 mg IVPUSH DAILY [facility] Pregabalin (Lyrica -) 200 mg PO TID [facility] Last Admin: 02/27/18 06:19 Dose: 200 mg - Objective Vital Signs: Vital Signs Temperature 98.8 F 02/27/18 09:53 Pulse Rate 83 02/27/18 09:53 Respiratory Rate 18 02/27/18 09:53 Blood Pressure 122/65 02/27/18 09:53 O2 Sat by Pulse Oximetry (%) 98 02/27/18 05:00 Constitutional: Yes: Mild Distress Eyes: Yes: WNL HENT: Yes: WNL Neck: Yes: WNL Cardiovascular: Yes: WNL Respiratory: Yes: WNL Gastrointestinal: Yes: Tenderness, Tenderness, Epigastrium Genitourinary: Yes: WNL Musculoskeletal: Yes: Back Pain Extremities: Yes: WNL Edema: Yes Peripheral Pulses WNL: Yes Integumentary: Yes: WNL Wound/Incision: Yes: Clean/Dry Neurological: Yes: Pre-Existing Deficit ...Motor Strength: LLE, RLE Psychiatric: Yes: Other Labs: CBC, BMP 02/27/18 06:00 02/27/18 06:00 INR, PTT INR 1.01 (0.83-1.09) 02/26/18 15:40 Problem List - Problems (1) Methadone dependence Code(s): F11.20 - OPIOID DEPENDENCE, UNCOMPLICATED (2) Arthritis, rheumatoid Code(s): M06.9 - RHEUMATOID ARTHRITIS, UNSPECIFIED (3) Asthma Code(s): J45.909 - UNSPECIFIED ASTHMA, UNCOMPLICATED (4) Diabetes mellitus Code(s): E11.9 - TYPE 2 DIABETES MELLITUS WITHOUT COMPLICATIONS (5) Epigastric abdominal pain Code(s): R10.13 - EPIGASTRIC PAIN (6) HTN (hypertension) Code(s): I10 - ESSENTIAL (PRIMARY) HYPERTENSION (7) Abdominal pain Code(s): R10.9 - UNSPECIFIED ABDOMINAL PAIN Assessment/Plan GI WORKUP IN PROGRESS AGREE WITH DR DUNAWAY THAT THIS MAYBE GASTROPARESIS EGD IN AM AWAIT GI SERIES AND SONO DVT PROPHYLAXIS OOB TO CHAIR SMOKING CESSATION
[2018-02-27] MEDS: PANTOPRAZOLE SODIUM 40 MG VIAL IVPUSH SCH (11:47)
--- NOTE | 2018-02-27 11:47 | EKG ---
Test Reason : Blood Pressure : / mmHG Vent. Rate : 080 BPM Atrial Rate : 080 BPM P-R Int : 152 ms QRS Dur : 116 ms QT Int : 402 ms P-R-T Axes : 054 -03 071 degrees QTc Int : 463 ms NORMAL SINUS RHYTHM POSSIBLE LEFT ATRIAL ENLARGEMENT LEFT VENTRICULAR HYPERTROPHY WITH QRS WIDENING CANNOT RULE OUT SEPTAL INFARCT (CITED ON OR BEFORE 07-FEB-2018) ABNORMAL ECG WHEN COMPARED WITH ECG OF 07-FEB-2018 16:19, NO SIGNIFICANT CHANGE WAS FOUND Confirmed by MATHIEU DE LEON MD ([id number]) on 02/27/2018 11:47:16 AM Referred By: Confirmed By:MATHIEU DE LEON MD
[2018-02-27] MEDS: NICOTINE 14 MG/24 HOURS TOPICAL PATCH TD SCH (11:48)
[2018-02-27] MEDS: DEXTROSE 5%-0.45% SALINE 1,000 ML IV SCH (19:30)
[2018-02-28] MEDS ORDERED: ACETAMINOPHEN 1000 MG/100 ML VIAL (NON FORMULARY) IVPB ONE (01:00)
[2018-02-28] MEDS: PREGABALIN 100 MG CAPSULE PO SCH ×2 (06:16→15:07)
[2018-02-28] MEDS: DULoxetine HCL 30 MG CAPSULE.DR (FP) PO SCH ×2 (06:16→15:07)
[2018-02-28] MEDS: DEXTROSE 5%-0.45% SALINE 1,000 ML IV SCH (08:54)
[2018-02-28] MEDS: CITALOPRAM HYDROBROMIDE 20 MG TABLET (FP) PO SCH (10:17)
[2018-02-28] MEDS: NICOTINE 14 MG/24 HOURS TOPICAL PATCH TD SCH (10:17)
[2018-02-28] MEDS: PANTOPRAZOLE SODIUM 40 MG VIAL IVPUSH SCH (10:18)
--- NOTE | 2018-02-28 12:37 | PN ---
Progress Note (short form) - Note Progress Note: EGD complete: report placed in procedural section of physical chart and to be scanned into Meican. No source of pain identified Problem List - Problems (1) Epigastric pain Code(s): R10.13 - EPIGASTRIC PAIN
--- NOTE | 2018-02-28 14:21 | DS ---
Physical Examination Vital Signs: Vital Signs Temperature 98.2 F 02/28/18 12:35 Pulse Rate 80 02/28/18 13:06 Respiratory Rate 13 02/28/18 13:06 Blood Pressure 143/71 02/28/18 13:06 O2 Sat by Pulse Oximetry (%) 100 02/28/18 13:06 Findings/Remarks: s/p egd, normal per Dr Bejarano, small avm does not need tx Constitutional: Yes: No Distress Eyes: Yes: WNL HENT: Yes: WNL Neck: Yes: WNL Cardiovascular: Yes: WNL Respiratory: Yes: WNL Gastrointestinal: Yes: WNL Renal/: Yes: WNL Musculoskeletal: Yes: WNL Extremities: Yes: WNL Edema: Yes Peripheral Pulses WNL: Yes Integumentary: Yes: WNL Wound/Incision: Yes: Clean/Dry Neurological: Yes: WNL ...Motor Strength: WNL Psychiatric: Yes: WNL Labs: CBC, BMP 02/27/18 06:00 02/27/18 06:00 Discharge Summary Reason For Visit: EPIGASTRIC PAIN Current Active Problems Arthritis, rheumatoid (Acute) Asthma (Acute) Depression (Acute) Diabetes mellitus (Acute) Epigastric abdominal pain (Acute) Epigastric pain (Acute) HTN (hypertension) (Acute) History of heroin abuse (Acute) Lupus (Acute) Methadone dependence (Acute) Procedures: Principal: EGD Hospital Course: ADMITTED ABD PAIN, N/V, EGD SHOWED 2 AVM NO NEED TO TREAT AT THIS TIME, TREAT FOR ACUTE GASTROPARESIS, STRICT DM CONTROL Condition: Stable - Instructions Diet, Activity, Other Instructions: STRICT ADA MENU SEE DR CARDENAS IN 2-3 WEEKS Referrals: Roberto Bejarano DO [Staff Physician] - Mik Cardenas MD [Primary Care Provider] - Disposition: HOME - Home Medications Comprehensive Discharge Medication List: Ambulatory Orders Pregabalin [Lyrica -] 200 mg PO TID 02/07/18 Insulin Detemir [Levemir Flextouch] 94 unit SQ HS 02/26/18 Novolog 18 unit BID 02/26/18 Citalopram Hydrobromide [Celexa -] 20 mg PO DAILY #30 tablet 02/28/18 Duloxetine HCl [Cymbalta -] 30 mg PO BID #60 capsule. 02/28/18 Metoclopramide HCl [Reglan] 10 mg PO TID #45 tablet 02/28/18 Nicotine Patch [Nicoderm Patch -] 14 mg TD DAILY #30 patch 02/28/18 Pantoprazole Sodium [Protonix -] 20 mg PO DAILY #30 tablet.ec 02/28/18 Pregabalin [Lyrica -] 200 mg PO TID capsule MDD 3 02/28/18
--- NOTE | 2018-02-28 14:23 | CON.PULM ---
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 Who presents to the ED with worsening epigastric cramping pain radiating to the left upper quadrant with nausea x several days, with an episode of brown emesis- bilious. Patient also reports an episode of melena several days ago now resolved. Patient reports being treated at [facility] and was diagnosed as having diverticulosis. A ct of abd revealed a lower lobe 8.5 mm nodule. 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 No: AFIB Pulmonary: Yes: Asthma, COPD. No: O2 Dependent Gastrointestinal: Yes: Diverticulosis ...: No Rheumatology: Yes: Lupus, Rheumatoid Arthritis Endocrine: Yes: Diabetes Mellitus Additional Medical History: Obesity - Past Surgical History Additional Surgical History: Denies - Alcohol/Substance Use Hx Alcohol Use: No History of Substance Use: reports: None - Smoking History Smoking history: Current some day smoker Have you smoked in the past 12 months: No Aproximately how many cigarettes per day: 3 - Social History Usual Living Arrangement: With Spouse ADL: Independent Place of : [facility] History of Recent Travel: No Home Medications - Allergies Allergies/Adverse Reactions: Allergies Allergy/AdvReac Type Severity Reaction Status Date / Time Penicillins Allergy Severe Verified 02/26/18 17:52 tomato Allergy Verified 02/26/18 14:31 - Home Medications Home Medications: Ambulatory Orders Pregabalin [Lyrica -] 200 mg PO TID 02/07/18 Insulin Detemir [Levemir Flextouch] 94 unit SQ HS 02/26/18 Novolog 18 unit BID 02/26/18 Citalopram Hydrobromide [Celexa -] 20 mg PO DAILY #30 tablet 02/28/18 Duloxetine HCl [Cymbalta -] 30 mg PO BID #60 capsule. 02/28/18 Metoclopramide HCl [Reglan] 10 mg PO TID #45 tablet 02/28/18 Nicotine Patch [Nicoderm Patch -] 14 mg TD DAILY #30 patch 02/28/18 Pantoprazole Sodium [Protonix -] 20 mg PO DAILY #30 tablet.ec 02/28/18 Pregabalin [Lyrica -] 200 mg PO TID capsule MDD 3 02/28/18 Family Disease History - Family Disease History Family Disease History: Other: Father (: diabetic complications), Mother ( : 70's: Lung Ca), Brother (2, healthy), Sister (2, healthy), Son (1, healthy ), Daughter (2. healthy) Other Family History: No family history of colorectal cancer or other GI malignancy Review of Systems - Review of Systems Constitutional: denies: Fever Eyes: denies: Blurred Vision HENT: denies: Difficult Swallowing Neck: denies: Decreased ROM Cardiovascular: denies: Chest Pain Respiratory: reports: Cough, Exercise Intolerance, SOB on Exertion, Wheezing. denies: Hemoptysis, Orthopnea Gastrointestinal: reports: Abdominal Pain Physical Exam Vital Sings: Vital Signs Temperature 98.2 F 02/28/18 12:35 Pulse Rate 80 02/28/18 13:06 Respiratory Rate 13 02/28/18 13:06 Blood Pressure 143/71 02/28/18 13:06 O2 Sat by Pulse Oximetry (%) 100 02/28/18 13:06 Constitutional: Yes: Calm Eyes: Yes: EOM Intact HENT: Yes: Normocephalic Neck: Yes: Trachea Midline Cardiovascular: Yes: Regular Rate and Rhythm, S1, S2 Respiratory: Yes: CTA Bilaterally Gastrointestinal: Yes: Soft, Abdomen, Obese Edema: No Psychiatric: Yes: Alert Labs: CBC, BMP 02/27/18 06:00 02/27/18 06:00 rest reviewed Imaging - Results Chest X-ray: Report Reviewed, Image Reviewed Cat Scan: Report Reviewed, Image Reviewed Ultrasound: Report Reviewed EKG: Report Reviewed Problem List - Problems (1) Lung nodule Code(s): R91.1 - SOLITARY PULMONARY NODULE (2) Asthma Code(s): J45.909 - UNSPECIFIED ASTHMA, UNCOMPLICATED (3) Diabetes mellitus Code(s): E11.9 - TYPE 2 DIABETES MELLITUS WITHOUT COMPLICATIONS (4) HTN (hypertension) Code(s): I10 - ESSENTIAL (PRIMARY) HYPERTENSION (5) Lupus Code(s): L93.0 - DISCOID LUPUS ERYTHEMATOSUS (6) Methadone dependence Code(s): F11.20 - OPIOID DEPENDENCE, UNCOMPLICATED (7) Abdominal pain Code(s): R10.9 - UNSPECIFIED ABDOMINAL PAIN Assessment/Plan 8.5 mm lower lobe lung nodule in an active smoker found on ct abd multiple medical problems as listed will order full ct chest further recommendations to follow Roseanna BURROUGHS MD
[2018-02-28 17:03] VITALS: BP 182/72; PULSE 81; TEMP 98.3
[2018-02-28] MEDS ORDERED: ACETAMINOPHEN 500 MG TABLET (FP) PO ONE (18:12)
--- NOTE | 2018-02-28 19:23 | CONSULT ---
Consult Consult Specialty:: endocrine Referred by:: dr.ammir macias Reason for Consultation:: diabetes mellitus uncontrolled - History of Present Illness Chief Complaint: high sugars History of Present Illness: 57-year-old woman with a past medical history of HTN, DM, Lupus, RA, Asthma, F. Who presents to the ED with worsening epigastric cramping pain radiating to the left upper quadrant with nausea x several days, with an episode of brown emesis - bilious. 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 No: AFIB Pulmonary: Yes: Asthma, COPD. No: O2 Dependent Gastrointestinal: Yes: Diverticulosis ...: No Rheumatology: Yes: Lupus, Rheumatoid Arthritis Endocrine: Yes: Diabetes Mellitus Additional Medical History: Obesity - Past Surgical History Additional Surgical History: Denies - Alcohol/Substance Use Hx Alcohol Use: No History of Substance Use: reports: None - Smoking History Smoking history: Current some day smoker Have you smoked in the past 12 months: No Aproximately how many cigarettes per day: 3 - Social History Usual Living Arrangement: With Spouse ADL: Independent History of Recent Travel: No Home Medications - Allergies Allergies/Adverse Reactions: Allergies Allergy/AdvReac Type Severity Reaction Status Date / Time Penicillins Allergy Severe Verified 02/26/18 17:52 tomato Allergy Verified 02/26/18 14:31 - Home Medications Home Medications: Ambulatory Orders Pregabalin [Lyrica -] 200 mg PO TID 02/07/18 Insulin Detemir [Levemir Flextouch] 94 unit SQ HS 02/26/18 Novolog 18 unit BID 02/26/18 Citalopram Hydrobromide [Celexa -] 20 mg PO DAILY #30 tablet 02/28/18 Duloxetine HCl [Cymbalta -] 30 mg PO BID #60 capsule. 02/28/18 Metoclopramide HCl [Reglan] 10 mg PO TID #45 tablet 02/28/18 Nicotine Patch [Nicoderm Patch -] 14 mg TD DAILY #30 patch 02/28/18 Pantoprazole Sodium [Protonix -] 20 mg PO DAILY #30 tablet.ec 02/28/18 Pregabalin [Lyrica -] 200 mg PO TID capsule MDD 3 02/28/18 Family Disease History - Family Disease History Family Disease History: Other: Father (: diabetic complications), Mother ( : 70's: Lung Ca), Brother (2, healthy), Sister (2, healthy), Son (1, healthy ), Daughter (2. healthy) Other Family History: No family history of colorectal cancer or other GI malignancy Review of Systems - Review of Systems Constitutional: reports: Lethargy Eyes: reports: No Symptoms HENT: reports: No Symptoms Neck: reports: No Symptoms Cardiovascular: reports: No Symptoms Respiratory: reports: No Symptoms Gastrointestinal: reports: Bloating, Constipation Genitourinary: reports: No Symptoms Breasts: reports: No Symptoms Reported Musculoskeletal: reports: Joint Pain, Joint Swelling, Muscle Cramps, Muscle Weakness Physical Exam Vital Signs: Vital Signs Temperature 98.3 F 02/28/18 17:02 Pulse Rate 81 02/28/18 17:02 Respiratory Rate 20 02/28/18 17:02 Blood Pressure 182/72 H 02/28/18 17:02 O2 Sat by Pulse Oximetry (%) 98 02/28/18 15:56 Constitutional: Yes: Calm Eyes: Yes: EOM Intact HENT: Yes: Normocephalic Neck: Yes: Trachea Midline Cardiovascular: Yes: Regular Rate and Rhythm Respiratory: Yes: CTA Bilaterally Gastrointestinal: Yes: Normal Bowel Sounds ...Rectal Exam: Yes: Deferred Renal/: Yes: WNL Neurological: Yes: Alert, Oriented Labs: CBC, BMP 02/27/18 06:00 02/27/18 06:00 Problem List - Problems (1) Diabetes mellitus Code(s): E11.9 - TYPE 2 DIABETES MELLITUS WITHOUT COMPLICATIONS (2) Epigastric abdominal pain Code(s): R10.13 - EPIGASTRIC PAIN (3) HTN (hypertension) Code(s): I10 - ESSENTIAL (PRIMARY) HYPERTENSION Assessment/Plan Current Active Problems Arthritis, rheumatoid (Acute) Asthma (Acute) Depression (Acute) Diabetes mellitus (Acute) Epigastric abdominal pain (Acute) Epigastric pain (Acute) HTN (hypertension) (Acute) History of heroin abuse (Acute) Lung nodule (Acute) Lupus (Acute) Methadone dependence (Acute) Laboratory Tests 02/27/18 02/27/18 06:00 06:00 Sodium 138 Potassium 4.2 Chloride 107 Carbon Dioxide 27 Anion Gap 5 L BUN 7 Creatinine 0.4 L Creat Clearance w eGFR > 60 Random Glucose 128 H Hemoglobin A1c % 12.2 H plan: bgm qid novolog insulin cgms as outpatient levemir 45units hshold if sugar below 120mg/dl levemir 45 units am use diet and nutrition as outpatient follow up
[2018-02-28] MEDS ORDERED: INSULIN (LEVEMIR) 100 UNITS/ML UNITS SQ SCH (22:00)
[2018-02-28] MEDS ORDERED: INSULIN SLIDING SCALE (NOVOLOG) 1 VIAL SQ SCH (22:00)
[2018-03-01] MEDS ORDERED: PANTOPRAZOLE 20 MG TABLET (FP) PO SCH (10:00)
--- NOTE | 2018-03-03 17:19 | PATH ---
Surgical Pathology Report Patient Name: EFRAÍN HI Med. Rec. #: [id number] /Age/Gender: 1960 (Age: 57) / F Account: [id number] Location: [facility] MED/SURG Taken: 02/28/2018 Received: 02/28/2018 Reported: 03/03/2018 Physicians: Lynne Elizondo M.D. Specimen(s) Received A: BX DUODENUM B: BX BODY/ ANGULARIS Clinical History Abdominal pain Postoperative diagnosis: Hiatal hernia, gastritis, AV M Final Diagnosis A. DUODENUM, BIOPSY: DUODENAL MUCOSA WITHOUT SIGNIFICANT PATHOLOGIC FINDINGS. B. STOMACH, BODY/ANGULARIS BIOPSY: GASTRIC BODY MUCOSA WITH MILD CHRONIC ACTIVE GASTRITIS. IMMUNOHISTOCHEMICAL STAIN FOR H. PYLORI IS POSITIVE (FEW). SCANT DETACHED SUPERFICIAL FRAGMENTS OF SMALL BOWEL MUCOSA. Electronically Signed Marcella Caruso M.D. Gross Description A. Received in formalin, labeled "biopsy duodenum" are 2 andrews, irregular portions of soft tissue measuring 0.2 and 0.4 cm. in greatest dimension. The specimens are submitted in toto in one cassette. B. Received in formalin, labeled "biopsy angularis/body" are 3 andrews, irregular portions of soft tissue ranging from 0.2-0.4 cm. in greatest dimension. The specimens are submitted in toto in one cassette. /02/28/2018 saudi02/28/2018
== END 2018-02-28 19:53 | disposition home or self-care (01) | DRG 197 ==
LOC: JER 14:04 → JERBED 20:24 → J8W 23:38 → OBSVTOIN 02-27 13:39
PROVIDERS: ADMIT Family Medicine; ATTEND Family Medicine
PROC: 0DB68ZX Excision of Stomach, Via Natural or Artificial Opening Endoscopic, Diagnostic (ICD-10-PCS; 2018-02-28)
PROC: 0DB98ZX Excision of Duodenum, Via Natural or Artificial Opening Endoscopic, Diagnostic (ICD-10-PCS; principal; 2018-02-28 12:30)
DX: Q27.33 Arteriovenous malformation of digestive system vessel (principal); E11.43 Type 2 diabetes mellitus with diabetic autonomic (poly)neuropathy; M06.9 Rheumatoid arthritis, unspecified; I10 Essential (primary) hypertension; J45.909 Unspecified asthma, uncomplicated; R10.12 Left upper quadrant pain; F17.210 Nicotine dependence, cigarettes, uncomplicated; R10.13 Epigastric pain; L93.0 Discoid lupus erythematosus; F32.9 Major depressive disorder, single episode, unspecified; I45.81 Long QT syndrome; E66.01 Morbid (severe) obesity due to excess calories; Z68.42 Body mass index [BMI] 45.0-49.9, adult; F11.20 Opioid dependence, uncomplicated; K57.90 Diverticulosis of intestine, part unspecified, without perforation or abscess without bleeding; R91.1 Solitary pulmonary nodule; K31.84 Gastroparesis; K44.9 Diaphragmatic hernia without obstruction or gangrene
CPT/HCPCS: 36415; 71045-TC-FY; 71250-TC; 74247-TC-FY; 76700-TC; 80048; 80053; 81003; 81015; 82150; 82272; 83036; 83690; 84484; 84703; 85025; 85610; 86850; 86900; 86901; 87086; 88305-TC; 93005; 93010; 93976; 99285-25; G0378; J0131; J7030

== ENCOUNTER 2020-03-24 10:07 | Inpatient (IN) | payer OTHER ==
[2020-03-24 10:36] VITALS: TEMP 98; BMI 41.5
[2020-03-24 13:15] LABS: EOS % 3.8 % (0-4.5); HEMATOCRIT 29.9 % (32.4-45.2); HEMOGLOBIN 9.6 GM/dL (10.7-15.3); LYMPH % 21.4 % (8-40); MCH 27.2 pg (25.7-33.7); MEAN CELL VOLUME 84.9 fl (80-96); MEAN PLT VOLUME 8.9 fl (7.5-11.1); MONO % 6.1 % (3.8-10.2); NEUT % 67.7 % (42.8-82.8); PLATELET COUNT 393 K/MM3 (134-434); RBC 3.52 M/mm3 (3.60-5.2); RDW 18.6 % (11.6-15.6); WHITE BLOOD COUNT 8.3 K/mm3 (4.0-10.0)
[2020-03-24 13:22] LABS: INR 1.11 (0.83-1.09); PROTHROMBIN TIME (PATIENT) 13.4 SEC (9.7-13.0)
[2020-03-24 13:25] LABS: ACTIVATED PTT 32.7 SECONDS (25.2-36.5)
[2020-03-24 14:20] LABS: POTASSIUM 4.2 mmol/L (3.5-5.1)
[2020-03-24 14:22] LABS: BLOOD UREA NITROGEN 5.9 mg/dL (7-18); CALCIUM 9.3 mg/dL (8.5-10.1)
[2020-03-24 14:25] LABS: CREATININE 0.7 mg/dL (0.55-1.3)
[2020-03-24 14:27] LABS: BILIRUBIN,TOTAL 0.2 mg/dL (0.2-1); TOT PROT 7.2 g/dl (6.4-8.2)
[2020-03-24] MEDS ORDERED: COLLAGENASE CLOSTRIDIUM HIST. 30 GRAMS TUBE TP SCH (14:30)
[2020-03-24 15:42] VITALS: BP 180/88; PULSE 83
== END 2020-03-24 15:30 | disposition left against medical advice (07) | DRG 380 ==
LOC: JER 10:07 → JERBED 14:02
PROVIDERS: ADMIT Family Medicine; ATTEND Family Medicine
DX: E11.621 Type 2 diabetes mellitus with foot ulcer (principal); L97.519 Non-pressure chronic ulcer of other part of right foot with unspecified severity; M79.671 Pain in right foot; I10 Essential (primary) hypertension; M06.9 Rheumatoid arthritis, unspecified; K29.60 Other gastritis without bleeding; Z79.4 Long term (current) use of insulin; F17.210 Nicotine dependence, cigarettes, uncomplicated; Z88.0 Allergy status to penicillin
CPT/HCPCS: 36415; 73700-TC-RT; 80053; 85025; 85610; 85730; 86850; 86900; 86901; 99285-25

== ENCOUNTER 2020-08-18 09:14 | Inpatient (IN) | payer OTHER ==
[2020-08-18 09:43] VITALS: BMI 33.3
[2020-08-18 11:13] LABS: EOS % 5.5 % (0-4.5); HEMOGLOBIN 10.2 GM/dL (10.7-15.3); LYMPH % 28.1 % (8-40); MCH 27.2 pg (25.7-33.7); MCHC 32.9 g/dl (32.0-36.0); MEAN CELL VOLUME 82.5 fl (80-96); MEAN PLT VOLUME 8.9 fl (7.5-11.1); MONO % 5.4 % (3.8-10.2); PLATELET COUNT 366 K/MM3 (134-434); RBC 3.76 M/mm3 (3.60-5.2); RDW 21.1 % (11.6-15.6); WHITE BLOOD COUNT 8.6 K/mm3 (4.0-10.0)
[2020-08-18 11:18] LABS: INR 1.02 (0.83-1.09); PROTHROMBIN TIME (PATIENT) 12.5 SEC (9.7-13.0)
[2020-08-18 11:21] LABS: ACTIVATED PTT 34.9 SECONDS (25.2-36.5)
[2020-08-18 11:35] LABS: CALCIUM 9.6 mg/dL (8.5-10.1)
[2020-08-18 11:36] LABS: ALBUMIN 3.3 g/dl (3.4-5.0); BLOOD UREA NITROGEN 9.7 mg/dL (7-18)
[2020-08-18 11:39] LABS: CREATININE 0.6 mg/dL (0.55-1.3)
[2020-08-18 11:40] LABS: BILIRUBIN,TOTAL 0.3 mg/dL (0.2-1); TOT PROT 7.2 g/dl (6.4-8.2)
[2020-08-18 12:01] LABS: EPI CELLS 14 /uL (0-25.1); HYALINE CASTS 1 /uL (0-3.1); URINE APPEARANCE CLEAR; URINE BACTERIA 254 /uL (0-1359); URINE BILIRUBIN NEGATIVE (NEGATIVE); URINE COLOR DK YELLOW; URINE GLUCOSE (UA) NEGATIVE (NEGATIVE); URINE KETONE TRACE (NEGATIVE); URINE LEUK ESTERASE NEGATIVE (NEGATIVE); URINE NITRITE NEGATIVE (NEGATIVE); URINE PROTEIN 2+ (NEGATIVE); URINE WBC 10 /uL (0-25.8)
[2020-08-18 12:08] LABS: URINE RBC 30.9 /uL (0-23.9)
[2020-08-18 12:43] LABS: ANISOCYTOSIS 1+; MACROCYTOSIS 0; OVALOCYTE 1+; PLATELET ESTIMATE NORMAL; TARGET CELLS 1+
[2020-08-18] MEDS ORDERED: ACETAMINOPHEN 325 MG TABLET (FP) PO PRN (14:24)
[2020-08-18] MEDS ORDERED: metFORMIN HCL 500 MG TABLET (FP) ONE (17:08)
[2020-08-18] MEDS ORDERED: INSULIN (NOVOLOG MIX 70/30) 100 UNITS/ML MDV SQ ONE (17:09)
[2020-08-18] MEDS: metFORMIN HCL 500 MG TABLET (FP) PO SCH (17:15)
[2020-08-18] MEDS: INSULIN (NOVOLOG MIX 70/30) 100 UNITS/ML MDV SQ SCH (17:15)
[2020-08-18] MEDS: HEPARIN NA (PORCINE) 5,000 UNITS/ML 1ML VIAL SQ SCH (21:44)
[2020-08-18] MEDS: ZOLPIDEM TARTRATE 5 MG TABLET PO SCH (21:44)
[2020-08-18] MEDS: CYCLOBENZAPRINE HCL 5 MG TABLET PO SCH (21:44)
[2020-08-18] MEDS: PREGABALIN 100 MG CAPSULE PO SCH (21:44)
[2020-08-18] MEDS: INSULIN (LEVEMIR) 100 UNITS/ML UNITS SQ SCH (21:44)
[2020-08-19] MEDS: metFORMIN HCL 500 MG TABLET (FP) PO SCH ×2 (06:24→17:35)
[2020-08-19] MEDS: PREGABALIN 100 MG CAPSULE PO SCH ×3 (06:24→22:15)
[2020-08-19] MEDS: CYCLOBENZAPRINE HCL 5 MG TABLET PO SCH ×3 (06:24→22:14)
[2020-08-19] MEDS: INSULIN (NOVOLOG MIX 70/30) 100 UNITS/ML MDV SQ SCH ×2 (06:25→17:35)
[2020-08-19] MEDS: FUROSEMIDE 20 MG TABLET (FP) PO SCH (06:25)
[2020-08-19] MEDS: LOSARTAN POTASSIUM 50 MG TABLET PO SCH (06:25)
[2020-08-19] MEDS ORDERED: INSULIN (NOVOLOG) ASPART 100 UNITS/ML 10ML VIAL ONE (06:45)
[2020-08-19] MEDS ORDERED: INSULIN (LEVEMIR) 100 UNITS/ML UNITS SQ ONE (06:45)
[2020-08-19] MEDS ORDERED: INSULIN (NOVOLOG MIX 70/30) 100 UNITS/ML MDV SQ ONE ×2 (06:45→17:36)
[2020-08-19 08:19] LABS: HEMOGLOBIN 10.5 GM/dL (10.7-15.3); MCH 27.2 pg (25.7-33.7); MCHC 32.8 g/dl (32.0-36.0); MEAN CELL VOLUME 82.9 fl (80-96); MEAN PLT VOLUME 8.9 fl (7.5-11.1); PLATELET COUNT 377 K/MM3 (134-434); RBC 3.86 M/mm3 (3.60-5.2); RDW 21.1 % (11.6-15.6)
[2020-08-19 08:42] LABS: CALCIUM 9.4 mg/dL (8.5-10.1)
[2020-08-19 08:43] LABS: ALBUMIN 3.3 g/dl (3.4-5.0); BLOOD UREA NITROGEN 10.1 mg/dL (7-18)
[2020-08-19 08:45] LABS: CREATININE 0.6 mg/dL (0.55-1.3)
[2020-08-19 08:47] LABS: BILIRUBIN,TOTAL 0.3 mg/dL (0.2-1); TOT PROT 7.1 g/dl (6.4-8.2)
[2020-08-19] MEDS: HEPARIN NA (PORCINE) 5,000 UNITS/ML 1ML VIAL SQ SCH ×2 (09:30→22:14)
[2020-08-19 10:05] LABS: ERYTHROCYTE SEDIMENTATION RATE 67 mm/hr (0-30)
[2020-08-19] MEDS ORDERED: LOSARTAN POTASSIUM 50 MG TABLET PO ONE (10:12)
[2020-08-19] MEDS: amLODIPine BESYLATE 5 MG TABLET (FP) PO SCH (10:48)
[2020-08-19] MEDS: PANTOPRAZOLE 40 MG TABLET PO SCH ×2 (10:49→10:50)
[2020-08-19] MEDS ORDERED: VANCOMYCIN 1 GM in D5W (PRE-DOCKED) 1,000 MG/250 ML IVPB ONE (19:39)
[2020-08-19] MEDS ORDERED: DOCUSATE SODIUM 100 MG CAPSULE (FP) PO PRN (19:41)
[2020-08-19] MEDS ORDERED: oxyCODONE HCL 5 MG TABLET PO PRN (19:41)
[2020-08-19] MEDS: ZOLPIDEM TARTRATE 5 MG TABLET PO SCH (22:13)
[2020-08-19] MEDS: NICOTINE 21 MG/24 HOURS TOPICAL PATCH TD SCH (22:14)
[2020-08-19] MEDS: INSULIN (LEVEMIR) 100 UNITS/ML UNITS SQ SCH (23:48)
[2020-08-20] MEDS: CYCLOBENZAPRINE HCL 5 MG TABLET PO SCH ×3 (05:49→21:51)
[2020-08-20] MEDS: PREGABALIN 100 MG CAPSULE PO SCH ×3 (05:49→21:46)
[2020-08-20] MEDS: INSULIN (NOVOLOG MIX 70/30) 100 UNITS/ML MDV SQ SCH (06:04)
[2020-08-20] MEDS: metFORMIN HCL 500 MG TABLET (FP) PO SCH ×2 (07:43→16:41)
[2020-08-20] MEDS ORDERED: INSULIN (NOVOLOG) ASPART 100 UNITS/ML 10ML VIAL ONE (08:42)
[2020-08-20] MEDS: VANCOMYCIN 1 GRAM (PRE-DOCKED) 1,000 MG/250 ML BAG IVPB SCH ×3 (10:03→12:42)
[2020-08-20] MEDS: HEPARIN NA (PORCINE) 5,000 UNITS/ML 1ML VIAL SQ SCH ×2 (10:05→21:45)
[2020-08-20] MEDS: FUROSEMIDE 20 MG TABLET (FP) PO SCH (10:06)
[2020-08-20] MEDS: amLODIPine BESYLATE 5 MG TABLET (FP) PO SCH (10:06)
[2020-08-20] MEDS: PANTOPRAZOLE 40 MG TABLET PO SCH (10:07)
[2020-08-20] MEDS: LOSARTAN POTASSIUM 50 MG TABLET PO SCH (10:07)
[2020-08-20] MEDS: NICOTINE 21 MG/24 HOURS TOPICAL PATCH TD SCH ×2 (10:07→15:10)
[2020-08-20] MEDS: ONDANSETRON *ODT* 4 MG TABLET SL PRN (11:26)
[2020-08-20] MEDS: ZOLPIDEM TARTRATE 5 MG TABLET PO SCH (21:45)
[2020-08-20] MEDS: INSULIN (LEVEMIR) 100 UNITS/ML UNITS SQ SCH (21:58)
[2020-08-21] MEDS: VANCOMYCIN 1 GRAM (PRE-DOCKED) 1,000 MG/250 ML BAG IVPB SCH ×2 (01:26→13:45)
[2020-08-21] MEDS: PREGABALIN 100 MG CAPSULE PO SCH ×3 (06:09→21:14)
[2020-08-21] MEDS: metFORMIN HCL 500 MG TABLET (FP) PO SCH ×2 (06:09→16:44)
[2020-08-21] MEDS: CYCLOBENZAPRINE HCL 5 MG TABLET PO SCH ×3 (06:09→21:14)
[2020-08-21] MEDS ORDERED: diphenhydrAMINE HCL 25 MG CAPSULE (FP) PO PRN (09:05)
[2020-08-21] MEDS: FUROSEMIDE 20 MG TABLET (FP) PO SCH (09:31)
[2020-08-21] MEDS: amLODIPine BESYLATE 5 MG TABLET (FP) PO SCH (09:32)
[2020-08-21] MEDS: PANTOPRAZOLE 40 MG TABLET PO SCH (09:32)
[2020-08-21] MEDS: NICOTINE 21 MG/24 HOURS TOPICAL PATCH TD SCH (09:32)
[2020-08-21] MEDS: HEPARIN NA (PORCINE) 5,000 UNITS/ML 1ML VIAL SQ SCH ×2 (09:32→21:14)
[2020-08-21] MEDS: LOSARTAN POTASSIUM 50 MG TABLET PO SCH (09:33)
[2020-08-21] MEDS: ONDANSETRON *ODT* 4 MG TABLET SL PRN (13:40)
[2020-08-21] MEDS: ZOLPIDEM TARTRATE 5 MG TABLET PO SCH (21:14)
[2020-08-21] MEDS: INSULIN (LEVEMIR) 100 UNITS/ML UNITS SQ SCH (21:15)
[2020-08-22] MEDS: VANCOMYCIN 1 GRAM (PRE-DOCKED) 1,000 MG/250 ML BAG IVPB SCH (01:47)
[2020-08-22] MEDS: metFORMIN HCL 500 MG TABLET (FP) PO SCH ×2 (06:48→17:24)
[2020-08-22] MEDS: PREGABALIN 100 MG CAPSULE PO SCH ×2 (06:48→14:19)
[2020-08-22] MEDS: CYCLOBENZAPRINE HCL 5 MG TABLET PO SCH ×2 (06:48→14:20)
[2020-08-22] MEDS ORDERED: INSULIN (LEVEMIR) 100 UNITS/ML UNITS SQ ONE (06:50)
[2020-08-22] MEDS ORDERED: INSULIN (NOVOLOG MIX 70/30) 100 UNITS/ML MDV SQ ONE (06:50)
[2020-08-22] MEDS: HEPARIN NA (PORCINE) 5,000 UNITS/ML 1ML VIAL SQ SCH (11:25)
[2020-08-22] MEDS: FUROSEMIDE 20 MG TABLET (FP) PO SCH (11:25)
[2020-08-22] MEDS: LOSARTAN POTASSIUM 50 MG TABLET PO SCH (11:25)
[2020-08-22] MEDS: NICOTINE 21 MG/24 HOURS TOPICAL PATCH TD SCH (11:26)
[2020-08-22] MEDS: PANTOPRAZOLE 40 MG TABLET PO SCH (11:26)
[2020-08-22] MEDS: amLODIPine BESYLATE 5 MG TABLET (FP) PO SCH (11:26)
[2020-08-22] MEDS ORDERED: SULFAMETHOXAZOLE/TRIMETHOPRIM 800MG/160MG D.S. TABLET PO SCH (12:30)
[2020-08-22 13:26] VITALS: BP 118/66; PULSE 98; TEMP 97.3
== END 2020-08-22 21:00 | disposition home health service (06) | DRG 383 ==
LOC: JER 09:14 → JERBED 14:19 → J7W 18:12
PROVIDERS: ADMIT Family Medicine; ATTEND Family Medicine
PROC: 0J9930Z Drainage of Buttock Subcutaneous Tissue and Fascia with Drainage Device, Percutaneous Approach (ICD-10-PCS; principal; 2020-08-19)
PROC: 0JP Subcutaneous Tissue and Fascia, Removal (ICD-10-PCS; 2020-08-22)
DX: L02.31 Cutaneous abscess of buttock (principal); E11.65 Type 2 diabetes mellitus with hyperglycemia; E66.01 Morbid (severe) obesity due to excess calories; Z68.41 Body mass index [BMI] 40.0-44.9, adult; I10 Essential (primary) hypertension; M06.9 Rheumatoid arthritis, unspecified; Z79.4 Long term (current) use of insulin; R91.1 Solitary pulmonary nodule; Z88.0 Allergy status to penicillin
CPT/HCPCS: 36415; 49407; 71046-TC-FY; 74176-TC; 80053; 81003; 82962; 83036; 84443; 85025; 85027; 85610; 85651; 85730; 86140; 86850; 86900; 86901; 87040; 87070; 87075; 87086; 87102; 87116; 87205; 87206; 87210; 93005; 93010; 97116-GP; 97161-GP; 99285-25; C1729; C1769; C9803; J1644; Q0162; U0003; U0005

== ENCOUNTER 2020-11-13 13:31 | Observation (INO) | payer OTHER ==
[2020-11-13 13:47] VITALS: BMI 41.5
[2020-11-13] MEDS ORDERED: ONDANSETRON 4 MG/2 ML VIAL ONE (14:45)
[2020-11-13] MEDS ORDERED: ONDANSETRON 4 MG/2 ML VIAL IVPB ONE (15:02)
[2020-11-13] MEDS ORDERED: SODIUM CHLORIDE 1,000 ML IV ONE (15:02)
[2020-11-13 15:18] LABS: BASO % 0.6 % (0-2.0); EOS % 0.2 % (0-4.5); HEMATOCRIT 33.6 % (32.4-45.2); HEMOGLOBIN 11.1 GM/dL (10.7-15.3); LYMPH % 8.9 % (8-40); MCH 25.5 pg (25.7-33.7); MEAN CELL VOLUME 77.3 fl (80-96); MEAN PLT VOLUME 8.5 fl (7.5-11.1); MONO % 8.1 % (3.8-10.2); NEUT % 82.2 % (42.8-82.8); PLATELET COUNT 473 10^3/uL (134-434); RBC 4.34 M/mm3 (3.60-5.2); RDW 19.5 % (11.6-15.6); WHITE BLOOD COUNT 11.6 K/mm3 (4.0-10.0)
[2020-11-13 15:29] LABS: CALCIUM 9.4 mg/dL (8.5-10.1)
[2020-11-13 15:30] LABS: ALBUMIN 3.5 g/dl (3.4-5.0)
[2020-11-13 15:34] LABS: BILIRUBIN,TOTAL 0.6 mg/dL (0.2-1); TOT PROT 8.2 g/dl (6.4-8.2)
[2020-11-13 15:36] LABS: CREATININE 0.7 mg/dL (0.55-1.3)
[2020-11-13] MEDS ORDERED: FAMOTIDINE 40 MG/5 ML ORAL SUSPENSION PEG SCH (15:45)
[2020-11-13] MEDS: MAG HYDROX/AL HYDROX/SIMETH 30 ML UNIT-DOSE CUP PO ONE ×2 (15:51→15:58)
[2020-11-13] MEDS ORDERED: MAG HYDROX/AL HYDROX/SIMETH 30 ML UNIT-DOSE CUP ONE (15:52)
[2020-11-13] MEDS ORDERED: FAMOTIDINE 20 MG/50 ML IVPB 20 MG/50 ML MG IVPB ONE ×3 (15:52→17:40)
[2020-11-13] MEDS ORDERED: POTASSIUM CHLORIDE TABS 20 MEQ TABLET.ER (FP) PO ONE ×2 (17:20→17:22)
[2020-11-13] MEDS ORDERED: METOCLOPRAMIDE HCL INJECTION 10 MG/2 ML VIAL ONE (17:34)
[2020-11-13] MEDS ORDERED: METOCLOPRAMIDE HCL INJECTION 10 MG/2 ML VIAL IM ONE (17:44)
[2020-11-13] MEDS ORDERED: METOCLOPRAMIDE HCL INJECTION 10 MG/2 ML VIAL IVPUSH ONE (17:45)
[2020-11-13] MEDS ORDERED: ONDANSETRON 4 MG/2 ML VIAL IVPUSH PRN (21:42)
[2020-11-13] MEDS ORDERED: KCL 10 MEQ IVPB 10 MEQ/100 ML INFUS.BAG IVPB SCH ×2 (21:45→22:00)
[2020-11-14] MEDS ORDERED: KCL 10 MEQ IVPB 10 MEQ/100 ML INFUS.BAG IVPB ONE (00:37)
[2020-11-14] MEDS: DEXTROSE 5%-0.45% SALINE 1,000 ML IV SCH ×2 (00:43→17:32)
[2020-11-14] MEDS ORDERED: ALBUTEROL SO4 HFA INHALER IH PRN (02:05)
[2020-11-14] MEDS ORDERED: ONDANSETRON 4 MG/2 ML VIAL ONE (03:27)
[2020-11-14] MEDS: PREGABALIN 100 MG CAPSULE PO SCH ×3 (06:41→21:36)
[2020-11-14 06:47] LABS: BASO % 0.8 % (0-2.0); EOS % 0.5 % (0-4.5); HEMATOCRIT 34.1 % (32.4-45.2); LYMPH % 14.6 % (8-40); MCH 25.4 pg (25.7-33.7); MCHC 32.4 g/dl (32.0-36.0); MEAN CELL VOLUME 78.4 fl (80-96); MEAN PLT VOLUME 8.6 fl (7.5-11.1); MONO % 8.2 % (3.8-10.2); NEUT % 75.9 % (42.8-82.8); PLATELET COUNT 445 10^3/uL (134-434); RBC 4.34 M/mm3 (3.60-5.2); RDW 19.8 % (11.6-15.6); WHITE BLOOD COUNT 10.7 K/mm3 (4.0-10.0)
[2020-11-14 07:14] LABS: ALBUMIN 3.2 g/dl (3.4-5.0); BLOOD UREA NITROGEN 10.7 mg/dL (7-18); CALCIUM 9.3 mg/dL (8.5-10.1); MAGNESIUM 1.7 mg/dL (1.8-2.4)
[2020-11-14 07:17] LABS: CREATININE 0.6 mg/dL (0.55-1.3)
[2020-11-14 07:19] LABS: BILIRUBIN,TOTAL 0.5 mg/dL (0.2-1); TOT PROT 7.4 g/dl (6.4-8.2)
[2020-11-14] MEDS ORDERED: MAGNESIUM 1GM/D5W 100ML - 100 ML IVPB IVPB ONE (09:30)
[2020-11-14] MEDS ORDERED: PT OWN MED DRAWER 7, Y5N ONE (11:20)
[2020-11-14] MEDS: FLUTICASONE/UMECLIDIN/VILANTER (TRELEGY ELLIPTA 200-62.5-25) INAHLER IH SCH (11:23)
[2020-11-14] MEDS: PANTOPRAZOLE 40 MG TABLET PO SCH (13:48)
[2020-11-15] MEDS: DEXTROSE 5%-0.45% SALINE 1,000 ML IV SCH ×2 (03:01→06:14)
[2020-11-15] MEDS: PREGABALIN 100 MG CAPSULE PO SCH ×2 (06:14→14:06)
[2020-11-15 07:03] LABS: ALBUMIN 3.1 g/dl (3.4-5.0)
[2020-11-15 07:04] LABS: MAGNESIUM 1.9 mg/dL (1.8-2.4)
[2020-11-15 07:07] LABS: CREATININE 0.8 mg/dL (0.55-1.3)
[2020-11-15 07:08] LABS: TOT PROT 6.7 g/dl (6.4-8.2)
[2020-11-15 07:11] LABS: BILIRUBIN,TOTAL 0.4 mg/dL (0.2-1)
[2020-11-15 07:41] LABS: HEMATOCRIT 34.5 % (32.4-45.2); HEMOGLOBIN 11.1 GM/dL (10.7-15.3); MCH 25.6 pg (25.7-33.7); MCHC 32.1 g/dl (32.0-36.0); MEAN CELL VOLUME 79.8 fl (80-96); MEAN PLT VOLUME 8.7 fl (7.5-11.1); PLATELET COUNT 423 10^3/uL (134-434); RBC 4.33 M/mm3 (3.60-5.2); RDW 20.2 % (11.6-15.6); WHITE BLOOD COUNT 10.2 K/mm3 (4.0-10.0)
[2020-11-15 08:52] LABS: URINE APPEARANCE Clear; URINE BILIRUBIN Negative (NEGATIVE); URINE COLOR Yellow; URINE GLUCOSE (UA) Negative (NEGATIVE); URINE KETONE Trace (NEGATIVE); URINE LEUK ESTERASE Negative (NEGATIVE); URINE NITRITE Negative (NEGATIVE); URINE PROTEIN 1+ (NEGATIVE)
[2020-11-15] MEDS: FLUTICASONE/UMECLIDIN/VILANTER (TRELEGY ELLIPTA 200-62.5-25) INAHLER IH SCH (09:48)
[2020-11-15] MEDS: PANTOPRAZOLE 40 MG TABLET PO SCH (09:48)
[2020-11-15 15:16] VITALS: BP 94/68; PULSE 89; TEMP 98.6
== END 2020-11-15 18:26 | disposition home or self-care (01) ==
LOC: JER 13:31 → JERBED 21:29 → J4S 11-14 04:08
PROVIDERS: ADMIT Hospitalist; ATTEND Family Medicine
PROC: 3E0337Z Introduction of Electrolytic and Water Balance Substance into Peripheral Vein, Percutaneous Approach (ICD-10-PCS; principal; 2020-11-13)
PROC: 3E033GC Introduction of Other Therapeutic Substance into Peripheral Vein, Percutaneous Approach (ICD-10-PCS; 2020-11-13)
PROC: 3E033GC Introduction of Other Therapeutic Substance into Peripheral Vein, Percutaneous Approach (ICD-10-PCS; 2020-11-13)
DX: R11.10 Vomiting, unspecified (principal); M32.9 Systemic lupus erythematosus, unspecified; I10 Essential (primary) hypertension; E11.9 Type 2 diabetes mellitus without complications; K21.9 Gastro-esophageal reflux disease without esophagitis; J44.9 Chronic obstructive pulmonary disease, unspecified; G47.30 Sleep apnea, unspecified; E66.8 Other obesity; Z68.41 Body mass index [BMI] 40.0-44.9, adult; M06.9 Rheumatoid arthritis, unspecified; K55.20 Angiodysplasia of colon without hemorrhage; F12.21 Cannabis dependence, in remission; F14.21 Cocaine dependence, in remission; K46.9 Unspecified abdominal hernia without obstruction or gangrene; Z88.0 Allergy status to penicillin; F17.210 Nicotine dependence, cigarettes, uncomplicated; Z91.018 Allergy to other foods; Z13.89 Encounter for screening for other disorder
CPT/HCPCS: 36415; 74177-TC; 80053; 81003; 82550; 82553; 82962; 83690; 83735; 84484; 85025; 85027; 87040; 87086; 93005; 93010; 96361; 96365; 96375; 99285-25; C9803; G0378; Q9967; U0003; U0005

== ENCOUNTER 2021-02-14 14:30 | Emergency (ER) | payer OTHER ==
[2021-02-14 14:50] VITALS: BP 129/66; PULSE 91; TEMP 97.9; BMI 41.5
[2021-02-14 21:55] LABS: EOS % 4.3 % (0-4.5); HEMATOCRIT 26.8 % (32.4-45.2); HEMOGLOBIN 8.6 GM/dL (10.7-15.3); LYMPH % 25.4 % (8-40); MCHC 32.1 g/dl (32.0-36.0); MEAN CELL VOLUME 80.9 fl (80-96); MEAN PLT VOLUME 8.7 fl (7.5-11.1); MONO % 6.1 % (3.8-10.2); NEUT % 63.2 % (42.8-82.8); PLATELET COUNT 407 10^3/uL (134-434); RBC 3.31 M/mm3 (3.60-5.2); RDW 23.2 % (11.6-15.6); WHITE BLOOD COUNT 7.2 K/mm3 (4.0-10.0)
[2021-02-14 22:02] LABS: INR 0.96 (0.83-1.09); PROTHROMBIN TIME (PATIENT) 11.8 SEC (9.7-13.0)
[2021-02-14 22:04] LABS: ACTIVATED PTT 31.6 SECONDS (25.2-36.5)
[2021-02-14 22:10] LABS: CALCIUM 8.7 mg/dL (8.5-10.1)
[2021-02-14 22:11] LABS: ALBUMIN 2.8 g/dl (3.4-5.0); BLOOD UREA NITROGEN 6.6 mg/dL (7-18)
[2021-02-14 22:14] LABS: CREATININE 0.7 mg/dL (0.55-1.3)
[2021-02-14 22:15] LABS: TOT PROT 7.1 g/dl (6.4-8.2)
[2021-02-14 22:24] LABS: BILIRUBIN,TOTAL 0.3 mg/dL (0.2-1)
[2021-02-15 00:26] LABS: ANISOCYTOSIS 1+; PLATELET ESTIMATE NORMAL
== END 2021-02-14 23:50 | disposition home or self-care (01) ==
LOC: JER 14:30
DX: J40 Bronchitis, not specified as acute or chronic (principal)
CPT/HCPCS: 36415; 71045-TC-FY; 80053; 83880; 85025; 85610; 85730; 99284-25; C9803; U0003; U0005

== ENCOUNTER 2021-05-31 08:00 | Inpatient (IN) | payer OTHER ==
[2021-05-31] MEDS ORDERED: ALBUTEROL SO4 2.5/IPRATROPIUM 0.5 INH SOL 3 ML VIAL.NEB. NEB ONE ×2 (08:48→08:52)
[2021-05-31] MEDS ORDERED: methylPREDNISolone NA SUCC 125 MG/2 ML VIAL IVPUSH ONE (08:48)
[2021-05-31 08:50] LABS: BASO % 0.6 % (0-2.0); EOS % 3.5 % (0-4.5); HEMATOCRIT 28.4 % (32.4-45.2); HEMOGLOBIN 8.9 GM/dL (10.7-15.3); LYMPH % 13.2 % (8-40); MCH 26.1 pg (25.7-33.7); MCHC 31.5 g/dl (32.0-36.0); MEAN PLT VOLUME 8.1 fl (7.5-11.1); MONO % 3.1 % (3.8-10.2); NEUT % 79.6 % (42.8-82.8); PLATELET COUNT 345 10^3/uL (134-434); RBC 3.42 M/mm3 (3.60-5.2); RDW 19.8 % (11.6-15.6); WHITE BLOOD COUNT 7.5 K/mm3 (4.0-10.0)
[2021-05-31] MEDS ORDERED: methylPREDNISolone NA SUCC 125 MG/2 ML VIAL ONE (08:52)
[2021-05-31 09:00] LABS: INR 1.3 (0.83-1.09)
[2021-05-31] MEDS ORDERED: FUROSEMIDE 40 MG/4 ML INJECTABLE VIAL IVPUSH ONE (09:02)
[2021-05-31] MEDS ORDERED: FUROSEMIDE 40 MG/4 ML INJECTABLE VIAL ONE (09:07)
[2021-05-31 09:26] LABS: CHLORIDE 103 mmol/L (98-107); SODIUM 141 mmol/L (136-145)
[2021-05-31 09:29] LABS: ALBUMIN 2.9 g/dl (3.4-5.0); ANION GAP 8 MMOL/L (8-16); BLOOD UREA NITROGEN 10.4 mg/dL (7-18); CALCIUM 9.2 mg/dL (8.5-10.1); CO2 31 mmol/L (21-32)
[2021-05-31 09:30] LABS: GLUCOSE,RANDOM 190 mg/dL (74-106)
[2021-05-31 09:31] LABS: CREATININE 0.6 mg/dL (0.55-1.3)
[2021-05-31 09:32] LABS: SGOT/AST 30 U/L (15-37); SGPT/ALT 18 U/L (13-61)
[2021-05-31 09:34] LABS: ALK PHOS 142 U/L (45-117); BILIRUBIN,TOTAL 0.5 mg/dL (0.2-1)
[2021-05-31 14:32] LABS: EPI CELLS 2 /uL (0-25.1); HYALINE CASTS 0 /uL (0-3.1); PH,URINE 7.5 (5.0-8.0); URINE APPEARANCE CLEAR; URINE BACTERIA 7 /uL (0-1359); URINE BILIRUBIN NEGATIVE (NEGATIVE); URINE COLOR YELLOW; URINE GLUCOSE (UA) NEGATIVE (NEGATIVE); URINE KETONE NEGATIVE (NEGATIVE); URINE LEUK ESTERASE NEGATIVE (NEGATIVE); URINE NITRITE NEGATIVE (NEGATIVE); URINE PROTEIN 1+ (NEGATIVE); URINE RBC 12 /uL (0-23.9); URINE WBC 1 /uL (0-25.8)
[2021-05-31] MEDS ORDERED: FAMOTIDINE 20 MG TABLET PO ONE (16:16)
[2021-05-31] MEDS ORDERED: FAMOTIDINE 20 MG TABLET ONE (16:17)
[2021-05-31] MEDS ORDERED: ALBUTEROL SO4 HFA INHALER IH PRN (19:52)
[2021-05-31] MEDS ORDERED: LOSARTAN POTASSIUM 50 MG TABLET PO ONE (20:00)
[2021-05-31] MEDS: ACETAMINOPHEN 325 MG TABLET (FP) PO PRN (20:24)
[2021-05-31 22:10] VITALS: BMI 41.9
[2021-06-01 09:21] LABS: BASO % 0.4 % (0-2.0); EOS % 1.2 % (0-4.5); HEMATOCRIT 27.5 % (32.4-45.2); HEMOGLOBIN 8.6 GM/dL (10.7-15.3); LYMPH % 21.2 % (8-40); MCH 26.1 pg (25.7-33.7); MCHC 31.4 g/dl (32.0-36.0); MEAN CELL VOLUME 83.2 fl (80-96); MEAN PLT VOLUME 8.9 fl (7.5-11.1); MONO % 4.4 % (3.8-10.2); NEUT % 72.8 % (42.8-82.8); PLATELET COUNT 366 10^3/uL (134-434); RBC 3.31 M/mm3 (3.60-5.2); WHITE BLOOD COUNT 7.6 K/mm3 (4.0-10.0)
[2021-06-01 09:58] LABS: ALBUMIN 2.8 g/dl (3.4-5.0)
[2021-06-01 10:01] LABS: CREATININE 0.6 mg/dL (0.55-1.3)
[2021-06-01 10:02] LABS: BILIRUBIN,TOTAL 0.5 mg/dL (0.2-1); TOT PROT 6.8 g/dl (6.4-8.2)
[2021-06-01 10:07] LABS: BLOOD UREA NITROGEN 13.1 mg/dL (7-18)
[2021-06-01 10:08] LABS: CALCIUM 9.4 mg/dL (8.5-10.1); MAGNESIUM 1.8 mg/dL (1.8-2.4)
[2021-06-01] MEDS: FUROSEMIDE 40 MG/4 ML INJECTABLE VIAL IVPUSH SCH (10:23)
[2021-06-01] MEDS: FLUTICASONE/UMECLIDIN/VILANTER(200-62.5-25 TRELEGY ELLIPTA) INAHLER IH SCH (10:23)
[2021-06-01] MEDS: PREGABALIN 100 MG CAPSULE PO SCH ×2 (14:20→21:22)
[2021-06-01] MEDS: INSULIN (LEVEMIR) 100 UNITS/ML UNITS SQ SCH (21:21)
[2021-06-01] MEDS: ZOLPIDEM TARTRATE 5 MG TABLET PO PRN (21:22)
[2021-06-01] MEDS: ACETAMINOPHEN 325 MG TABLET (FP) PO PRN (21:37)
[2021-06-02] MEDS: PREGABALIN 100 MG CAPSULE PO SCH ×3 (06:17→22:21)
[2021-06-02] MEDS: FLUTICASONE/UMECLIDIN/VILANTER(200-62.5-25 TRELEGY ELLIPTA) INAHLER IH SCH (10:21)
[2021-06-02] MEDS: LOSARTAN POTASSIUM 25 MG TABLET PO SCH (10:21)
[2021-06-02] MEDS: FUROSEMIDE 40 MG/4 ML INJECTABLE VIAL IVPUSH SCH (10:21)
[2021-06-02 14:14] LABS: IRON SERUM 37 ug/dL (50-175); TOTAL IRON BINDING CAPACITY 394 ug/dL (250-450)
[2021-06-02] MEDS ORDERED: FERRIC CARBOXYMALTOSE 750 MG in SODIUM CHLORIDE 250 ML IVPB ONE (16:47)
[2021-06-02] MEDS ORDERED: INSULIN (LEVEMIR) 100 UNITS/ML UNITS SQ SCH (22:20)
[2021-06-02] MEDS: INSULIN (LEVEMIR) 100 UNITS/ML UNITS SQ SCH (22:37)
[2021-06-03] MEDS: ZOLPIDEM TARTRATE 5 MG TABLET PO PRN (01:21)
[2021-06-03] MEDS: PREGABALIN 100 MG CAPSULE PO SCH (06:04)
[2021-06-03 08:04] VITALS: BP 143/80; PULSE 83; TEMP 98.4
[2021-06-03] MEDS: LOSARTAN POTASSIUM 25 MG TABLET PO SCH (09:44)
[2021-06-03] MEDS: FLUTICASONE/UMECLIDIN/VILANTER(200-62.5-25 TRELEGY ELLIPTA) INAHLER IH SCH (09:47)
[2021-06-03] MEDS ORDERED: FUROSEMIDE 40 MG TABLET (FP) PO SCH (10:00)
[2021-06-03 11:46] LABS: HEMOGLOBIN 10.3 GM/dL (10.7-15.3); MCH 26.6 pg (25.7-33.7); MCHC 32.1 g/dl (32.0-36.0); MEAN CELL VOLUME 82.9 fl (80-96); MEAN PLT VOLUME 8.5 fl (7.5-11.1); PLATELET COUNT 403 10^3/uL (134-434); RBC 3.86 M/mm3 (3.60-5.2); RDW 20.2 % (11.6-15.6)
== END 2021-06-03 14:00 | disposition home or self-care (01) | DRG 194 ==
LOC: JER 08:00 → JERBED 10:16 → J6WEST-2 18:39 → J4W 06-02 11:45
PROVIDERS: ADMIT Family Medicine; ATTEND Family Medicine
DX: I11.0 Hypertensive heart disease with heart failure (principal); I50.33 Acute on chronic diastolic (congestive) heart failure; M32.9 Systemic lupus erythematosus, unspecified; J44.1 Chronic obstructive pulmonary disease with (acute) exacerbation; E11.9 Type 2 diabetes mellitus without complications; Z99.81 Dependence on supplemental oxygen; D64.9 Anemia, unspecified; Z79.4 Long term (current) use of insulin; J45.901 Unspecified asthma with (acute) exacerbation; E66.01 Morbid (severe) obesity due to excess calories; Z68.41 Body mass index [BMI] 40.0-44.9, adult; G47.30 Sleep apnea, unspecified; K29.70 Gastritis, unspecified, without bleeding; F32.9 Major depressive disorder, single episode, unspecified; M06.9 Rheumatoid arthritis, unspecified
CPT/HCPCS: 36415; 71045-TC-FY; 71275-TC; 80053; 81003; 82550; 82553; 82570; 82962; 83540; 83550; 83735; 83880; 84156; 84443; 84484; 85025; 85027; 85379; 85610; 86850; 86900; 86901; 87040; 87086; 93005; 93010; 93306-TC; 99285-25; C9803; J1439; Q9967; U0003; U0005

== ENCOUNTER 2021-06-30 11:14 | Day surgery (SDC) | payer OTHER ==
[2021-06-30] MEDS ORDERED: FERRIC CARBOXYMALTOSE 750 MG in SODIUM CHLORIDE 250 ML IVPB ONE (12:00)
[2021-06-30 12:41] VITALS: BP 138/68; PULSE 87; TEMP 99
== END 2021-06-30 13:44 | disposition home or self-care (01) ==
LOC: FINFUSION 11:14 → FM/S 11:16 → FINFUSION 13:44
PROVIDERS: ATTEND Family Medicine
PROC: 3E033GC Introduction of Other Therapeutic Substance into Peripheral Vein, Percutaneous Approach (ICD-10-PCS; principal; 2021-06-30)
DX: D50.9 Iron deficiency anemia, unspecified (principal)
CPT/HCPCS: 96365; J1439

== ENCOUNTER 2021-08-20 11:39 | Emergency (ER) | payer OTHER ==
[2021-08-20 11:44] VITALS: BP 140/85; PULSE 92; TEMP 97.7; BMI 43.5
[2021-08-20] MEDS ORDERED: diazePAM 5 MG TABLET PO ONE (12:16)
[2021-08-20] MEDS ORDERED: KETOROLAC TROMETHAMINE 30 MG/1 ML VIAL IM ONE (12:16)
[2021-08-20] MEDS ORDERED: LIDOCAINE 5% TOPICAL PATCH TP ONE (12:16)
[2021-08-20] MEDS ORDERED: LIDOCAINE 5% TOPICAL PATCH ONE (12:18)
[2021-08-20] MEDS ORDERED: diazePAM 5 MG TABLET ONE (12:18)
[2021-08-20] MEDS ORDERED: KETOROLAC TROMETHAMINE 30 MG/1 ML VIAL ONE (12:18)
[2021-08-20] MEDS ORDERED: LIDOCAINE PATCH REMOVAL MC SCH (22:00)
== END 2021-08-20 13:19 | disposition home or self-care (01) ==
LOC: JERFT 11:39 → JER 11:39 → JERFT 13:19
PROC: 3E023GC Introduction of Other Therapeutic Substance into Muscle, Percutaneous Approach (ICD-10-PCS; principal; 2021-08-20)
DX: S16.1XXA Strain of muscle, fascia and tendon at neck level, initial encounter (principal); W01.0XXA Fall on same level from slipping, tripping and stumbling without subsequent striking against object, initial encounter
CPT/HCPCS: 72050-TC-FY; 73030-TC-RT-FY; 99284-25

== ENCOUNTER 2021-12-12 09:02 | Inpatient (IN) | payer OTHER ==
[2021-12-12] MEDS ORDERED: DEXAMETHASONE SOD PHOSPHATE 10 MG/1 ML VIAL ONE (09:11)
[2021-12-12] MEDS ORDERED: ALBUTEROL SO4 2.5/IPRATROPIUM 0.5 INH SOL 3 ML VIAL.NEB. NEB ONE ×2 (09:17→10:07)
[2021-12-12 10:17] LABS: BASO % 0.7 % (0-2.0); EOS % 3.6 % (0-4.5); HEMATOCRIT 26.1 % (32.4-45.2); HEMOGLOBIN 8.3 GM/dL (10.7-15.3); LYMPH % 12.3 % (8-40); MCHC 31.9 g/dl (32.0-36.0); MEAN CELL VOLUME 78.6 fl (80-96); MEAN PLT VOLUME 8.5 fl (7.5-11.1); MONO % 4.9 % (3.8-10.2); NEUT % 78.5 % (42.8-82.8); PLATELET COUNT 388 10^3/uL (134-434); RBC 3.32 M/mm3 (3.60-5.2); RDW 20.3 % (11.6-15.6); WHITE BLOOD COUNT 6.5 K/mm3 (4.0-10.0)
[2021-12-12 10:41] LABS: ALBUMIN 3.1 g/dl (3.4-5.0); CALCIUM 8.9 mg/dL (8.5-10.1)
[2021-12-12 10:42] LABS: BLOOD UREA NITROGEN 10.5 mg/dL (7-18)
[2021-12-12 10:44] LABS: CREATININE 0.7 mg/dL (0.55-1.3)
[2021-12-12 10:46] LABS: BILIRUBIN,TOTAL 0.2 mg/dL (0.2-1); TOT PROT 7.2 g/dl (6.4-8.2)
[2021-12-12 10:49] LABS: N-TERMINAL BNP 433.8 pg/ml (5-125)
[2021-12-12] MEDS ORDERED: FUROSEMIDE 40 MG/4 ML INJECTABLE VIAL ONE ×2 (11:03→12:09)
[2021-12-12] MEDS ORDERED: FUROSEMIDE 40 MG/4 ML INJECTABLE VIAL IVPUSH SCH ×2 (11:38→14:00)
[2021-12-12] MEDS ORDERED: FUROSEMIDE 40 MG/4 ML INJECTABLE VIAL IVPUSH ONE ×2 (12:01→12:02)
[2021-12-12] MEDS ORDERED: ACETAMINOPHEN 1000 MG/100 ML BAG IVPB ONE (12:14)
[2021-12-12] MEDS ORDERED: ACETAMINOPHEN INJECTION 100 ML IVPB ONE (12:28)
[2021-12-12] MEDS ORDERED: ACETAMINOPHEN 325 MG TABLET (FP) PO PRN (13:16)
[2021-12-12] MEDS ORDERED: PANTOPRAZOLE SODIUM 40 MG VIAL ONE (14:49)
[2021-12-12] MEDS ORDERED: PREGABALIN 100 MG CAPSULE ONE (14:49)
[2021-12-12] MEDS: PANTOPRAZOLE SODIUM 40 MG VIAL IVPUSH SCH (14:56)
[2021-12-12] MEDS: PREGABALIN 100 MG CAPSULE PO SCH ×2 (14:57→21:14)
[2021-12-12 15:50] VITALS: RESP 20
[2021-12-12] MEDS: HEPARIN NA (PORCINE) 5,000 UNITS/ML 1ML VIAL SQ SCH ×2 (18:03→21:14)
[2021-12-12] MEDS: INSULIN SLIDING SCALE (NOVOLOG) 1 VIAL SQ SCH ×2 (18:05→21:17)
[2021-12-12 18:26] VITALS: BMI 43.0
[2021-12-12] MEDS: INSULIN (LEVEMIR) 100 UNITS/ML UNITS SQ SCH (21:15)
[2021-12-12] MEDS ORDERED: ZOLPIDEM TARTRATE 5 MG TABLET PO SCH (22:00)
[2021-12-13] MEDS: FUROSEMIDE 40 MG/4 ML INJECTABLE VIAL IVPUSH SCH ×2 (06:08→08:00)
[2021-12-13] MEDS: PREGABALIN 100 MG CAPSULE PO SCH (06:08)
[2021-12-13] MEDS: HEPARIN NA (PORCINE) 5,000 UNITS/ML 1ML VIAL SQ SCH (06:08)
[2021-12-13] MEDS: INSULIN SLIDING SCALE (NOVOLOG) 1 VIAL SQ SCH (06:10)
[2021-12-13] MEDS: INSULIN (LEVEMIR) 100 UNITS/ML UNITS SQ SCH (06:10)
[2021-12-13 07:42] LABS: EOS % 0.3 % (0-4.5); HEMATOCRIT 28.7 % (32.4-45.2); HEMOGLOBIN 9.1 GM/dL (10.7-15.3); MCH 25.1 pg (25.7-33.7); MCHC 31.8 g/dl (32.0-36.0); MEAN CELL VOLUME 78.8 fl (80-96); MEAN PLT VOLUME 8.7 fl (7.5-11.1); MONO % 5.5 % (3.8-10.2); NEUT % 82.2 % (42.8-82.8); PLATELET COUNT 403 10^3/uL (134-434); RBC 3.64 M/mm3 (3.60-5.2); RDW 20.2 % (11.6-15.6); WHITE BLOOD COUNT 9.7 K/mm3 (4.0-10.0)
[2021-12-13 08:04] LABS: CALCIUM 9.5 mg/dL (8.5-10.1)
[2021-12-13 08:05] LABS: ALBUMIN 3.1 g/dl (3.4-5.0); BLOOD UREA NITROGEN 11.9 mg/dL (7-18); CREATININE 0.7 mg/dL (0.55-1.3)
[2021-12-13 08:07] LABS: BILIRUBIN,TOTAL 0.4 mg/dL (0.2-1); TOT PROT 7.6 g/dl (6.4-8.2)
[2021-12-13 08:12] VITALS: BP 154/84; PULSE 100; TEMP 98.3
[2021-12-13] MEDS: PANTOPRAZOLE SODIUM 40 MG VIAL IVPUSH SCH (09:10)
[2021-12-13] MEDS ORDERED: LOSARTAN POTASSIUM 25 MG TABLET PO SCH (10:00)
[2021-12-13] MEDS ORDERED: FLUTICASONE/UMECLIDIN/VILANTER(200-62.5-25 TRELEGY ELLIPTA) INAHLER IH SCH (10:00)
[2021-12-13] MEDS ORDERED: FUROSEMIDE 40 MG/4 ML INJECTABLE VIAL IVPUSH SCH (10:00)
== END 2021-12-13 10:40 | disposition home or self-care (01) | DRG 194 ==
LOC: JER 09:02 → JERBED 12:25 → OBSVTOIN 13:18 → J4W 15:24
PROVIDERS: ADMIT Family Medicine; ATTEND Family Medicine
DX: I11.0 Hypertensive heart disease with heart failure (principal); Z99.81 Dependence on supplemental oxygen; D50.9 Iron deficiency anemia, unspecified; E11.9 Type 2 diabetes mellitus without complications; F17.200 Nicotine dependence, unspecified, uncomplicated; J44.1 Chronic obstructive pulmonary disease with (acute) exacerbation; J44.9 Chronic obstructive pulmonary disease, unspecified; K21.9 Gastro-esophageal reflux disease without esophagitis; L93.0 Discoid lupus erythematosus; I50.23 Acute on chronic systolic (congestive) heart failure
CPT/HCPCS: 0241U-QW; 36415; 71045-TC-FY; 80053; 82550; 82553; 82728; 82962; 83036; 83540; 83550; 83735; 83880; 84443; 84484; 85025; 93005; 93010; 99291; G0378; J1644

== ENCOUNTER 2022-01-09 07:37 | Inpatient (IN) | payer OTHER ==
[2022-01-09 07:44] VITALS: BMI 41.9
[2022-01-09] MEDS ORDERED: ACETAMINOPHEN 1000 MG/100 ML BAG IVPB ONE ×2 (08:18→15:58)
[2022-01-09 09:11] LABS: INR 1.12 (0.83-1.09); PROTHROMBIN TIME (PATIENT) 12.9 SEC (9.7-13.0)
[2022-01-09 09:14] LABS: ACTIVATED PTT 33.8 SECONDS (25.2-36.5)
[2022-01-09 09:21] LABS: ALBUMIN 2.8 g/dl (3.4-5.0); CALCIUM 9.1 mg/dL (8.5-10.1); MAGNESIUM 1.9 mg/dL (1.8-2.4)
[2022-01-09 09:22] LABS: BLOOD UREA NITROGEN 11.1 mg/dL (7-18)
[2022-01-09 09:24] LABS: BASO % 0.9 % (0-2.0); CREATININE 0.7 mg/dL (0.55-1.3); EOS % 4.3 % (0-4.5); HEMATOCRIT 24.3 % (32.4-45.2); HEMOGLOBIN 7.7 GM/dL (10.7-15.3); LYMPH % 19.1 % (8-40); MCH 24.5 pg (25.7-33.7); MCHC 31.6 g/dl (32.0-36.0); MEAN CELL VOLUME 77.5 fl (80-96); MEAN PLT VOLUME 8.6 fl (7.5-11.1); MONO % 6.4 % (3.8-10.2); NEUT % 69.3 % (42.8-82.8); PLATELET COUNT 346 10^3/uL (134-434); RBC 3.14 M/mm3 (3.60-5.2); RDW 20.6 % (11.6-15.6); WHITE BLOOD COUNT 7.7 K/mm3 (4.0-10.0)
[2022-01-09 09:25] LABS: BILIRUBIN,TOTAL 0.3 mg/dL (0.2-1); TOT PROT 6.7 g/dl (6.4-8.2)
[2022-01-09 09:28] LABS: N-TERMINAL BNP 538.9 pg/ml (5-125)
[2022-01-09] MEDS ORDERED: FUROSEMIDE 40 MG/4 ML INJECTABLE VIAL IVPUSH ONE (09:45)
[2022-01-09] MEDS ORDERED: FUROSEMIDE 40 MG/4 ML INJECTABLE VIAL ONE (09:46)
[2022-01-09] MEDS ORDERED: ACETAMINOPHEN INJECTION 100 ML IVPB ONE ×2 (09:46→16:07)
[2022-01-09] MEDS ORDERED: ALBUTEROL SO4 HFA INHALER IH PRN (17:30)
[2022-01-09] MEDS ORDERED: ACETAMINOPHEN 325 MG TABLET (FP) PO PRN (17:30)
[2022-01-09] MEDS: INSULIN (NOVOLOG) ASPART 100 UNITS/ML 10ML VIAL SQ SCH (21:11)
[2022-01-09] MEDS: HEPARIN NA (PORCINE) 5,000 UNITS/ML 1ML VIAL SQ SCH (21:29)
[2022-01-09] MEDS: PREGABALIN 100 MG CAPSULE PO SCH (21:29)
[2022-01-09] MEDS: PANTOPRAZOLE SODIUM 40 MG VIAL IVPUSH SCH (21:30)
[2022-01-09 21:44] LABS: BASO % 0.6 % (0-2.0); EOS % 4.3 % (0-4.5); HEMATOCRIT 26.1 % (32.4-45.2); HEMOGLOBIN 8.2 GM/dL (10.7-15.3); LYMPH % 15.8 % (8-40); MCH 24.3 pg (25.7-33.7); MCHC 31.3 g/dl (32.0-36.0); MEAN CELL VOLUME 77.8 fl (80-96); MEAN PLT VOLUME 8.7 fl (7.5-11.1); MONO % 6.1 % (3.8-10.2); NEUT % 73.2 % (42.8-82.8); PLATELET COUNT 346 10^3/uL (134-434); RBC 3.36 M/mm3 (3.60-5.2); RDW 20.8 % (11.6-15.6); WHITE BLOOD COUNT 7.2 K/mm3 (4.0-10.0)
[2022-01-10] MEDS ORDERED: ACETAMINOPHEN 325 MG TABLET (FP) ONE (06:44)
[2022-01-10] MEDS ORDERED: PREGABALIN 100 MG CAPSULE ONE (06:44)
[2022-01-10] MEDS ORDERED: FUROSEMIDE 40 MG/4 ML INJECTABLE VIAL ONE ×2 (06:45→15:44)
[2022-01-10] MEDS: FUROSEMIDE 40 MG/4 ML INJECTABLE VIAL IVPUSH SCH ×2 (06:46→15:52)
[2022-01-10] MEDS: INSULIN (NOVOLOG) ASPART 100 UNITS/ML 10ML VIAL SQ SCH ×4 (06:46→21:57)
[2022-01-10] MEDS: PREGABALIN 100 MG CAPSULE PO SCH ×3 (06:46→21:53)
[2022-01-10] MEDS ORDERED: PANTOPRAZOLE SODIUM 40 MG/100 ML BAG IVPB ONE (08:25)
[2022-01-10] MEDS ORDERED: LOSARTAN POTASSIUM 50 MG TABLET ONE (08:25)
[2022-01-10] MEDS ORDERED: HEPARIN NA (PORCINE) 5,000 UNITS/ML 1ML VIAL ONE (08:26)
[2022-01-10] MEDS: LOSARTAN POTASSIUM 25 MG TABLET PO SCH (09:06)
[2022-01-10] MEDS: HEPARIN NA (PORCINE) 5,000 UNITS/ML 1ML VIAL SQ SCH ×2 (09:06→21:54)
[2022-01-10] MEDS: PANTOPRAZOLE SODIUM 40 MG VIAL IVPUSH SCH (09:06)
[2022-01-10 09:34] LABS: BASO % 0.6 % (0-2.0); EOS % 5.1 % (0-4.5); HEMATOCRIT 28.4 % (32.4-45.2); HEMOGLOBIN 8.9 GM/dL (10.7-15.3); LYMPH % 17.9 % (8-40); MCH 24.4 pg (25.7-33.7); MCHC 31.5 g/dl (32.0-36.0); MEAN CELL VOLUME 77.6 fl (80-96); MEAN PLT VOLUME 8.6 fl (7.5-11.1); MONO % 5.8 % (3.8-10.2); NEUT % 70.6 % (42.8-82.8); PLATELET COUNT 373 10^3/uL (134-434); RBC 3.66 M/mm3 (3.60-5.2); RDW 21.4 % (11.6-15.6); WHITE BLOOD COUNT 7.5 K/mm3 (4.0-10.0)
[2022-01-10 10:02] LABS: ALBUMIN 3.2 g/dl (3.4-5.0); BLOOD UREA NITROGEN 9.3 mg/dL (7-18); CALCIUM 9.4 mg/dL (8.5-10.1)
[2022-01-10 10:04] LABS: BILIRUBIN,TOTAL 0.5 mg/dL (0.2-1); CREATININE 0.7 mg/dL (0.55-1.3); TOT PROT 7.6 g/dl (6.4-8.2)
[2022-01-10] MEDS: FLUTICASONE/UMECLIDIN/VILANTER(200-62.5-25 TRELEGY ELLIPTA) INAHLER IH SCH (11:04)
[2022-01-10] MEDS ORDERED: IRON SUCROSE INJECTION 200 MG in SODIUM CHLORIDE 90 ML IVPB ONE (11:55)
[2022-01-11] MEDS ORDERED: traMADol HCL 50 MG TABLET PO PRN (00:13)
[2022-01-11 06:03] VITALS: RESP 18
[2022-01-11] MEDS: PREGABALIN 100 MG CAPSULE PO SCH ×2 (06:17→13:07)
[2022-01-11] MEDS: FUROSEMIDE 40 MG/4 ML INJECTABLE VIAL IVPUSH SCH ×2 (06:18→13:07)
[2022-01-11] MEDS: INSULIN (NOVOLOG) ASPART 100 UNITS/ML 10ML VIAL SQ SCH ×3 (06:31→17:36)
[2022-01-11 08:12] LABS: BASO % 0.6 % (0-2.0); HEMATOCRIT 26.4 % (32.4-45.2); HEMOGLOBIN 8.4 GM/dL (10.7-15.3); LYMPH % 15.8 % (8-40); MCH 24.8 pg (25.7-33.7); MCHC 31.9 g/dl (32.0-36.0); MEAN CELL VOLUME 77.8 fl (80-96); MEAN PLT VOLUME 8.6 fl (7.5-11.1); MONO % 6.8 % (3.8-10.2); NEUT % 72.8 % (42.8-82.8); PLATELET COUNT 360 10^3/uL (134-434); RBC 3.39 M/mm3 (3.60-5.2); RDW 20.8 % (11.6-15.6); WHITE BLOOD COUNT 7.2 K/mm3 (4.0-10.0)
[2022-01-11 08:27] LABS: BLOOD UREA NITROGEN 13.4 mg/dL (7-18); CALCIUM 9.2 mg/dL (8.5-10.1)
[2022-01-11 08:30] LABS: BILIRUBIN,DIRECT 0.1 mg/dL (0.0-0.2); CREATININE 0.8 mg/dL (0.55-1.3)
[2022-01-11 08:31] LABS: TOT PROT 6.8 g/dl (6.4-8.2)
[2022-01-11 08:32] LABS: BILIRUBIN,TOTAL 0.3 mg/dL (0.2-1); INR 1.15 (0.83-1.09); PROTHROMBIN TIME (PATIENT) 13.3 SEC (9.7-13.0)
[2022-01-11] MEDS ORDERED: POLYETHYLENE GLYCOL (HEALTHYLAX) 3350 17 GM PACKET PO SCH (10:00)
[2022-01-11] MEDS ORDERED: PANTOPRAZOLE 40 MG TABLET PO SCH (10:00)
[2022-01-11] MEDS: HEPARIN NA (PORCINE) 5,000 UNITS/ML 1ML VIAL SQ SCH (10:12)
[2022-01-11] MEDS: LOSARTAN POTASSIUM 25 MG TABLET PO SCH (10:13)
[2022-01-11] MEDS: FLUTICASONE/UMECLIDIN/VILANTER(200-62.5-25 TRELEGY ELLIPTA) INAHLER IH SCH (10:13)
[2022-01-11 15:29] VITALS: BP 148/68; PULSE 97; TEMP 97.7
== END 2022-01-11 18:55 | disposition home or self-care (01) | DRG 194 ==
LOC: JER 07:37 → JERBED 09:57 → OBSVTOIN 17:32 → J4S 01-10 21:00
PROVIDERS: ADMIT Family Medicine; ATTEND Family Medicine
DX: I11.0 Hypertensive heart disease with heart failure (principal); J96.11 Chronic respiratory failure with hypoxia; Z68.41 Body mass index [BMI] 40.0-44.9, adult; D50.9 Iron deficiency anemia, unspecified; E66.9 Obesity, unspecified; I50.33 Acute on chronic diastolic (congestive) heart failure; E11.9 Type 2 diabetes mellitus without complications; K21.9 Gastro-esophageal reflux disease without esophagitis; E87.70 Fluid overload, unspecified
CPT/HCPCS: 0241U-QW; 36415; 71045-TC-FY; 76700-TC; 80048; 80053; 80061; 80076; 82272; 82550; 82553; 82728; 82962; 82977; 83036; 83540; 83550; 83735; 83880; 84443; 84484; 85025; 85610; 85730; 86704; 86803; 87340; 87517; 93005; 93010; 93971-TC; 99285-25; G0378; J1644; J1756

== ENCOUNTER 2022-04-01 20:14 | Emergency (ER) | payer OTHER ==
[2022-04-01 20:23] VITALS: BP 126/92; PULSE 83; RESP 22; TEMP 97.7; BMI 46.1
[2022-04-01] MEDS ORDERED: DEXAMETHASONE SOD PHOSPHATE 10 MG/1 ML VIAL IVPUSH ONE (20:51)
[2022-04-01] MEDS ORDERED: AZITHROMYCIN IVPB 500 MG in DEXTROSE 5%-WATER - 250 ML IVPB ONE (21:03)
[2022-04-01] MEDS ORDERED: DEXAMETHASONE SOD PHOSPHATE 10 MG/1 ML VIAL ONE (21:07)
[2022-04-01 21:31] LABS: BASO % 0.7 % (0-2.0); EOS % 3.7 % (0-4.5); HEMATOCRIT 26.9 % (32.4-45.2); HEMOGLOBIN 8.7 GM/dL (10.7-15.3); LYMPH % 19.6 % (8-40); MCH 24.5 pg (25.7-33.7); MCHC 32.3 g/dl (32.0-36.0); MEAN CELL VOLUME 75.7 fl (80-96); MEAN PLT VOLUME 8.3 fl (7.5-11.1); MONO % 7.1 % (3.8-10.2); NEUT % 68.9 % (42.8-82.8); PLATELET COUNT 433 10^3/uL (134-434); RBC 3.56 M/mm3 (3.60-5.2); RDW 21.3 % (11.6-15.6); WHITE BLOOD COUNT 7.2 K/mm3 (4.0-10.0)
[2022-04-01 21:51] LABS: ALBUMIN 2.9 g/dl (3.4-5.0); CALCIUM 8.8 mg/dL (8.5-10.1)
[2022-04-01 21:52] LABS: BLOOD UREA NITROGEN 10.2 mg/dL (7-18)
[2022-04-01 21:55] LABS: TOT PROT 7.1 g/dl (6.4-8.2)
[2022-04-01 21:57] LABS: BILIRUBIN,TOTAL 0.5 mg/dL (0.2-1)
[2022-04-01] MEDS ORDERED: AZITHROMYCIN IVPB 500 MG/250 ML BAG IVPB ONE (22:03)
[2022-04-01 22:34] LABS: ANISOCYTOSIS 3+; MACROCYTOSIS 1+; PLATELET ESTIMATE INCREASED
[2022-04-01] MEDS ORDERED: ALBUTEROL SO4 2.5/IPRATROPIUM 0.5 INH SOL 3 ML VIAL.NEB. NEB ONE ×2 (23:32→23:49)
[2022-04-01] MEDS ORDERED: INSULIN REGULAR HUMAN 100 UNITS/ML *VIAL SQ ONE (23:32)
[2022-04-01] MEDS ORDERED: PANTOPRAZOLE SODIUM 40 MG VIAL ONE (23:49)
[2022-04-01] MEDS ORDERED: guaiFENesin/D-METHORPHAN HB 10 ML UNIT-DOSE CUPS ONE (23:49)
== END 2022-04-02 01:29 | disposition left against medical advice (07) ==
LOC: JER 20:14
PROC: 3E0F7GC Introduction of Other Therapeutic Substance into Respiratory Tract, Via Natural or Artificial Opening (ICD-10-PCS; principal; 2022-04-01)
PROC: 3E03329 Introduction of Other Anti-infective into Peripheral Vein, Percutaneous Approach (ICD-10-PCS; 2022-04-01)
PROC: 3E033GC Introduction of Other Therapeutic Substance into Peripheral Vein, Percutaneous Approach (ICD-10-PCS; 2022-04-01)
DX: J44.1 Chronic obstructive pulmonary disease with (acute) exacerbation (principal); R05.9 Cough, unspecified
CPT/HCPCS: 0241U-QW; 36415; 71045-TC-FY; 71275-TC; 80053; 84484; 85025; 85379; 99285-25; J1100

== ENCOUNTER 2022-04-30 11:31 | Inpatient (IN) | payer OTHER ==
[2022-04-30 11:59] VITALS: TEMP 97.5; BMI 46.5
[2022-04-30] MEDS ORDERED: ALBUTEROL SO4 2.5/IPRATROPIUM 0.5 INH SOL 3 ML VIAL.NEB. NEB ONE ×3 (12:06→12:14)
[2022-04-30 13:15] LABS: VENOUS BASE EXCESS 7.1 mmol/L (-2-2); VENOUS O2 SATURATION 86.1 % (70-80); VENOUS PCO2 52.7 mmHg (38-52); VENOUS PH 7.411 (7.310-7.410)
[2022-04-30 13:18] LABS: BASO % 0.7 % (0-2.0); EOS % 3.2 % (0-4.5); HEMATOCRIT 26.5 % (32.4-45.2); HEMOGLOBIN 8.3 GM/dL (10.7-15.3); LYMPH % 11.7 % (8-40); MCH 23.5 pg (25.7-33.7); MCHC 31.4 g/dl (32.0-36.0); MEAN CELL VOLUME 74.8 fl (80-96); MEAN PLT VOLUME 8.7 fl (7.5-11.1); MONO % 7.7 % (3.8-10.2); NEUT % 76.7 % (42.8-82.8); PLATELET COUNT 452 10^3/uL (134-434); RBC 3.54 M/mm3 (3.60-5.2); RDW 21.4 % (11.6-15.6); WHITE BLOOD COUNT 9.6 K/mm3 (4.0-10.0)
[2022-04-30 13:37] LABS: CHLORIDE 99 mmol/L (98-107); SODIUM 142 mmol/L (136-145)
[2022-04-30 13:39] LABS: ALBUMIN 3.1 g/dl (3.4-5.0)
[2022-04-30 13:40] LABS: ANION GAP 9 MMOL/L (8-16); BLOOD UREA NITROGEN 12.2 mg/dL (7-18); CO2 34 mmol/L (21-32); GLUCOSE,RANDOM 71 mg/dL (74-106); MAGNESIUM 1.8 mg/dL (1.8-2.4)
[2022-04-30 13:43] LABS: SGOT/AST 40 U/L (15-37); SGPT/ALT 24 U/L (13-61)
[2022-04-30 13:44] LABS: BILIRUBIN,TOTAL 0.2 mg/dL (0.2-1); TOT PROT 7.1 g/dl (6.4-8.2)
[2022-04-30 13:45] LABS: ALK PHOS 147 U/L (45-117)
[2022-04-30 13:48] LABS: N-TERMINAL BNP 436.3 pg/ml (5-125)
[2022-04-30 13:50] LABS: ANISOCYTOSIS 2+; MACROCYTOSIS 0
[2022-04-30 13:51] LABS: CREATININE 0.8 mg/dL (0.55-1.3)
[2022-04-30] MEDS ORDERED: ASPIRIN 81 MG CHEWABLE TABLETS PO ONE (13:59)
[2022-04-30] MEDS ORDERED: ASPIRIN 81 MG CHEWABLE TABLETS ONE (14:13)
[2022-04-30] MEDS ORDERED: DEXAMETHASONE SOD PHOSPHATE 10 MG/1 ML VIAL IVPUSH ONE (15:26)
[2022-04-30] MEDS ORDERED: DEXAMETHASONE SOD PHOSPHATE 4 MG/1 ML VIAL ONE (15:35)
[2022-04-30] MEDS ORDERED: ACETAMINOPHEN 1000 MG/100 ML BAG IVPB ONE (16:50)
[2022-04-30] MEDS ORDERED: ACETAMINOPHEN INJECTION 100 ML IVPB ONE (16:57)
[2022-04-30] MEDS ORDERED: ACETAMINOPHEN 325 MG TABLET (FP) PO PRN (17:31)
[2022-04-30] MEDS ORDERED: FUROSEMIDE 40 MG/4 ML INJECTABLE VIAL IVPUSH ONE (17:35)
[2022-04-30] MEDS ORDERED: FUROSEMIDE 40 MG/4 ML INJECTABLE VIAL ONE (17:44)
[2022-04-30] MEDS ORDERED: methylPREDNISolone NA SUCC 40 MG/1 ML VIAL IVPUSH SCH (17:45)
[2022-04-30] MEDS ORDERED: ALBUTEROL SO4 2.5/IPRATROPIUM 0.5 INH SOL 3 ML VIAL.NEB. NEB SCH (20:00)
[2022-04-30 20:47] VITALS: BP 146/69; PULSE 98; RESP 20
[2022-04-30] MEDS ORDERED: HEPARIN NA (PORCINE) 5,000 UNITS/ML 1ML VIAL SQ SCH (22:00)
[2022-04-30] MEDS ORDERED: PREGABALIN 100 MG CAPSULE PO SCH (22:00)
[2022-05-01] MEDS ORDERED: FUROSEMIDE 40 MG/4 ML INJECTABLE VIAL IVPUSH SCH (06:00)
[2022-05-01] MEDS ORDERED: LOSARTAN POTASSIUM 25 MG TABLET PO SCH (10:00)
[2022-05-01] MEDS ORDERED: PANTOPRAZOLE 40 MG TABLET PO SCH (10:00)
[2022-05-01] MEDS ORDERED: FLUTICASONE/UMECLIDIN/VILANTER(200-62.5-25 TRELEGY ELLIPTA) INAHLER IH SCH (10:00)
== END 2022-04-30 20:00 | disposition left against medical advice (07) | DRG 140 ==
LOC: JER 11:31 → JERBED 14:18
PROVIDERS: ADMIT Family Medicine; ATTEND Family Medicine
DX: J44.1 Chronic obstructive pulmonary disease with (acute) exacerbation (principal); I50.9 Heart failure, unspecified; E11.9 Type 2 diabetes mellitus without complications; R06.02 Shortness of breath; R07.89 Other chest pain; R09.02 Hypoxemia; E66.9 Obesity, unspecified; Z68.42 Body mass index [BMI] 45.0-49.9, adult
CPT/HCPCS: 0241U-QW; 36415; 71045-TC-FY; 80053; 82803; 83735; 83880; 84484; 85025; 93005; 93010; 99285-25; J1100

== ENCOUNTER 2022-05-04 08:05 | Observation (INO) | payer OTHER ==
[2022-05-04] MEDS ORDERED: morphine SULFATE 4 MG/ML VIAL IVPUSH ONE ×2 (09:18→10:44)
[2022-05-04] MEDS ORDERED: ONDANSETRON 4 MG/2 ML VIAL IVPUSH ONE (09:19)
[2022-05-04] MEDS ORDERED: NITROGLYCERIN SUBLINGUAL 1/150 0.4 MG TAB SL ONE (09:40)
[2022-05-04] MEDS ORDERED: ONDANSETRON 4 MG/2 ML VIAL ONE (10:15)
[2022-05-04] MEDS ORDERED: NITROGLYCERIN SUBLINGUAL 1/150 0.4 MG TAB ONE (10:15)
[2022-05-04 11:01] LABS: BASO % 0.6 % (0-2.0); EOS % 1.9 % (0-4.5); HEMATOCRIT 28.2 % (32.4-45.2); HEMOGLOBIN 8.6 GM/dL (10.7-15.3); LYMPH % 12.5 % (8-40); MCH 22.9 pg (25.7-33.7); MCHC 30.7 g/dl (32.0-36.0); MEAN CELL VOLUME 74.7 fl (80-96); MEAN PLT VOLUME 8.7 fl (7.5-11.1); MONO % 6.6 % (3.8-10.2); NEUT % 78.4 % (42.8-82.8); PLATELET COUNT 447 10^3/uL (134-434); RBC 3.77 M/mm3 (3.60-5.2); RDW 21.6 % (11.6-15.6); WHITE BLOOD COUNT 9.6 K/mm3 (4.0-10.0)
[2022-05-04] MEDS ORDERED: morphine SULFATE 4 MG/ML VIAL ONE (11:05)
[2022-05-04 11:09] LABS: INR 1.1 (0.83-1.09); PROTHROMBIN TIME (PATIENT) 12.7 SEC (9.7-13.0)
[2022-05-04 11:12] LABS: ACTIVATED PTT 31.1 SECONDS (25.2-36.5)
[2022-05-04 11:14] LABS: VENOUS BASE EXCESS 5.3 mmol/L (-2-2); VENOUS O2 SATURATION 44.3 % (70-80); VENOUS PCO2 42.1 mmHg (38-52); VENOUS PH 7.464 (7.310-7.410)
[2022-05-04 11:27] LABS: CALCIUM 9.4 mg/dL (8.5-10.1)
[2022-05-04 11:28] LABS: ALBUMIN 3.2 g/dl (3.4-5.0); BLOOD UREA NITROGEN 13.8 mg/dL (7-18)
[2022-05-04 11:31] LABS: CREATININE 0.9 mg/dL (0.55-1.3)
[2022-05-04 11:32] LABS: BILIRUBIN,TOTAL 0.4 mg/dL (0.2-1); TOT PROT 7.4 g/dl (6.4-8.2)
[2022-05-04 11:34] LABS: ANISOCYTOSIS 3+; MACROCYTOSIS 0
[2022-05-04 11:36] LABS: N-TERMINAL BNP 385.9 pg/ml (5-125)
[2022-05-04] MEDS ORDERED: ASPIRIN 81 MG CHEWABLE TABLETS PO ONE (15:57)
[2022-05-04] MEDS ORDERED: ASPIRIN 81 MG CHEWABLE TABLETS ONE (16:06)
[2022-05-04 18:44] VITALS: RESP 20
[2022-05-04] MEDS: ACETAMINOPHEN 1000 MG/100 ML BAG IVPB PRN (22:40)
[2022-05-04] MEDS: INSULIN SLIDING SCALE (NOVOLOG) 1 VIAL SQ SCH (22:40)
[2022-05-04] MEDS: HEPARIN NA (PORCINE) 5,000 UNITS/ML 1ML VIAL SQ SCH (22:41)
[2022-05-05] MEDS: INSULIN SLIDING SCALE (NOVOLOG) 1 VIAL SQ SCH ×4 (06:55→22:27)
[2022-05-05] MEDS: FUROSEMIDE 40 MG TABLET (FP) PO SCH ×2 (06:55→13:26)
[2022-05-05] MEDS: HEPARIN NA (PORCINE) 5,000 UNITS/ML 1ML VIAL SQ SCH ×2 (09:55→22:28)
[2022-05-05] MEDS: LOSARTAN POTASSIUM 25 MG TABLET PO SCH (09:56)
[2022-05-05] MEDS: ACETAMINOPHEN 1000 MG/100 ML BAG IVPB PRN (13:27)
[2022-05-05] MEDS ORDERED: MELATONIN 5 MG TABLETS PO PRN (20:53)
[2022-05-06] MEDS: FUROSEMIDE 40 MG TABLET (FP) PO SCH ×3 (06:46→07:14)
[2022-05-06] MEDS: INSULIN SLIDING SCALE (NOVOLOG) 1 VIAL SQ SCH ×2 (06:48→12:42)
[2022-05-06 08:18] LABS: BASO % 1.1 % (0-2.0); EOS % 2.1 % (0-4.5); HEMATOCRIT 30.5 % (32.4-45.2); HEMOGLOBIN 9.4 GM/dL (10.7-15.3); LYMPH % 14.1 % (8-40); MCH 23.2 pg (25.7-33.7); MCHC 30.9 g/dl (32.0-36.0); MEAN CELL VOLUME 75.3 fl (80-96); MEAN PLT VOLUME 8.8 fl (7.5-11.1); MONO % 8.2 % (3.8-10.2); NEUT % 74.5 % (42.8-82.8); PLATELET COUNT 476 10^3/uL (134-434); RBC 4.05 M/mm3 (3.60-5.2); RDW 20.9 % (11.6-15.6); WHITE BLOOD COUNT 8.4 K/mm3 (4.0-10.0)
[2022-05-06 08:41] LABS: CALCIUM 9.6 mg/dL (8.5-10.1)
[2022-05-06 08:42] LABS: ALBUMIN 3.2 g/dl (3.4-5.0); BLOOD UREA NITROGEN 13.4 mg/dL (7-18)
[2022-05-06 08:45] LABS: CREATININE 0.9 mg/dL (0.55-1.3)
[2022-05-06 08:46] LABS: BILIRUBIN,TOTAL 0.5 mg/dL (0.2-1)
[2022-05-06 08:47] LABS: TOT PROT 7.4 g/dl (6.4-8.2)
[2022-05-06] MEDS: HEPARIN NA (PORCINE) 5,000 UNITS/ML 1ML VIAL SQ SCH (09:59)
[2022-05-06] MEDS: LOSARTAN POTASSIUM 25 MG TABLET PO SCH (09:59)
[2022-05-06] MEDS ORDERED: CARVEDILOL 6.25 MG TABLET (FP) PO SCH (10:00)
[2022-05-06] MEDS ORDERED: RANOLAZINE E.R. 500 MG TABLET (FP) PO SCH (10:00)
[2022-05-06 10:52] VITALS: BP 111/62; PULSE 80; TEMP 98.3
== END 2022-05-06 13:10 | disposition left against medical advice (07) ==
LOC: JER 08:05 → JERBED 13:38 → J4W 20:58
PROVIDERS: ADMIT Family Medicine; ATTEND Family Medicine
PROC: 3E023GC Introduction of Other Therapeutic Substance into Muscle, Percutaneous Approach (ICD-10-PCS; principal; 2022-05-04)
PROC: 3E013VG Introduction of Insulin into Subcutaneous Tissue, Percutaneous Approach (ICD-10-PCS; 2022-05-04)
PROC: 3E033NZ Introduction of Analgesics, Hypnotics, Sedatives into Peripheral Vein, Percutaneous Approach (ICD-10-PCS; 2022-05-04)
PROC: 3E033GC Introduction of Other Therapeutic Substance into Peripheral Vein, Percutaneous Approach (ICD-10-PCS; 2022-05-04)
DX: R07.9 Chest pain, unspecified (principal); M32.9 Systemic lupus erythematosus, unspecified; J44.9 Chronic obstructive pulmonary disease, unspecified; E11.9 Type 2 diabetes mellitus without complications; I11.0 Hypertensive heart disease with heart failure; I50.9 Heart failure, unspecified; Z88.0 Allergy status to penicillin; Z91.018 Allergy to other foods; G47.33 Obstructive sleep apnea (adult) (pediatric); K29.70 Gastritis, unspecified, without bleeding
CPT/HCPCS: 0241U-QW; 36415; 71046-TC-FY; 71275-TC; 74174-TC; 76705-TC; 80053; 82803; 82962; 83690; 83880; 84484; 85025; 85610; 85730; 93005; 93010; 99285-25; G0378; J1644; Q9967

== ENCOUNTER 2023-04-21 14:56 | Emergency (ER) | payer OTHER ==
[2023-04-21 15:19] VITALS: RESP 20; TEMP 98; BMI 41.5
[2023-04-21] MEDS ORDERED: ACETAMINOPHEN 1000 MG/100 ML BAG IVPB ONE (15:49)
[2023-04-21] MEDS ORDERED: ALBUTEROL SO4 2.5/IPRATROPIUM 0.5 INH SOL 3 ML VIAL.NEB. NEB ONE (16:05)
[2023-04-21] MEDS: ALBUTEROL SO4 2.5/IPRATROPIUM 0.5 INH SOL 3 ML VIAL.NEB. NEB SCH ×2 (16:10→16:48)
[2023-04-21] MEDS ORDERED: ONDANSETRON *ODT* 4 MG TABLET SL ONE (16:13)
[2023-04-21] MEDS ORDERED: ONDANSETRON *ODT* 4 MG TABLET ONE (16:14)
[2023-04-21] MEDS ORDERED: ACETAMINOPHEN INJECTION 100 ML IVPB ONE (16:38)
[2023-04-21 16:45] LABS: BASO % 1.2 % (0-2.0); HEMATOCRIT 25.1 % (32.4-45.2); HEMOGLOBIN 7.7 GM/dL (10.7-15.3); LYMPH % 5.6 % (8-40); MCH 21.3 pg (25.7-33.7); MCHC 30.8 g/dl (32.0-36.0); MEAN CELL VOLUME 69.2 fl (80-96); MEAN PLT VOLUME 8.6 fl (7.5-11.1); MONO % 10.8 % (3.8-10.2); NEUT % 81.4 % (42.8-82.8); PLATELET COUNT 411 10^3/uL (134-434); RBC 3.62 M/mm3 (3.60-5.2); RDW 21.6 % (11.6-15.6); WHITE BLOOD COUNT 6.2 K/mm3 (4.0-10.0)
[2023-04-21 17:06] LABS: POTASSIUM 3.9 mmol/L (3.5-5.1)
[2023-04-21 17:09] LABS: ALBUMIN 3.2 g/dl (3.4-5.0); BLOOD UREA NITROGEN 9.3 mg/dL (7-18); MAGNESIUM 1.8 mg/dL (1.8-2.4)
[2023-04-21 17:13] LABS: BILIRUBIN,TOTAL 0.4 mg/dL (0.2-1); TOT PROT 7.3 g/dl (6.4-8.2)
[2023-04-21] MEDS ORDERED: METOCLOPRAMIDE HCL INJECTION 10 MG/2 ML VIAL IVPB ONE (17:40)
[2023-04-21] MEDS ORDERED: SODIUM CHLORIDE 0.9% 500 ML INFUS.BAG IV ONE (17:40)
[2023-04-21] MEDS ORDERED: KETOROLAC TROMETHAMINE 15 MG/ML VIAL IVPUSH ONE (17:40)
[2023-04-21 17:58] LABS: ANISOCYTOSIS 2+; MACROCYTOSIS 0; OVALOCYTE 2+; TARGET CELLS 2+; TEAR DROP CELLS 2+
[2023-04-21] MEDS ORDERED: METOCLOPRAMIDE HCL INJECTION 10 MG/2 ML VIAL ONE (18:07)
[2023-04-21] MEDS ORDERED: KETOROLAC TROMETHAMINE 15 MG/ML VIAL ONE (18:07)
[2023-04-21 21:06] VITALS: BP 106/49; PULSE 86
== END 2023-04-21 21:11 | disposition home or self-care (01) ==
LOC: JER 14:56
PROC: 3E033NZ Introduction of Analgesics, Hypnotics, Sedatives into Peripheral Vein, Percutaneous Approach (ICD-10-PCS; principal; 2023-04-21)
PROC: 3E0333Z Introduction of Anti-inflammatory into Peripheral Vein, Percutaneous Approach (ICD-10-PCS; 2023-04-21)
PROC: 3E033GC Introduction of Other Therapeutic Substance into Peripheral Vein, Percutaneous Approach (ICD-10-PCS; 2023-04-21)
PROC: 3E0F7GC Introduction of Other Therapeutic Substance into Respiratory Tract, Via Natural or Artificial Opening (ICD-10-PCS; 2023-04-21)
DX: R05.9 Cough, unspecified (principal); R11.10 Vomiting, unspecified; R06.02 Shortness of breath; R51.9 Headache, unspecified; R10.32 Left lower quadrant pain; U07.1 COVID-19
CPT/HCPCS: 0241U-QW; 71045-TC-FY; 80053; 83735; 83880; 84484; 85025; 86850; 86900; 86901; 93005; 93010; 99285-25; Q0162

== ENCOUNTER 2023-04-24 11:22 | Inpatient (IN) | payer OTHER ==
[2023-04-24] MEDS ORDERED: SODIUM CHLORIDE 0.9% 500 ML INFUS.BAG IV ONE (11:59)
[2023-04-24] MEDS ORDERED: ALBUTEROL SO4 2.5/IPRATROPIUM 0.5 INH SOL 3 ML VIAL.NEB. NEB ONE ×3 (14:12→14:34)
[2023-04-24 14:22] LABS: BASO % 0.7 % (0-2.0); HEMATOCRIT 26.4 % (32.4-45.2); HEMOGLOBIN 7.9 GM/dL (10.7-15.3); LYMPH % 14.8 % (8-40); MCH 21.1 pg (25.7-33.7); MCHC 30.1 g/dl (32.0-36.0); MEAN CELL VOLUME 70.1 fl (80-96); MEAN PLT VOLUME 8.9 fl (7.5-11.1); NEUT % 75.5 % (42.8-82.8); PLATELET COUNT 349 10^3/uL (134-434); RBC 3.77 M/mm3 (3.60-5.2); RDW 21.6 % (11.6-15.6); WHITE BLOOD COUNT 4.5 K/mm3 (4.0-10.0)
[2023-04-24] MEDS ORDERED: ONDANSETRON 4 MG/2 ML VIAL IVPUSH ONE (15:33)
[2023-04-24] MEDS ORDERED: ONDANSETRON 4 MG/2 ML VIAL ONE (15:33)
[2023-04-24 15:38] LABS: POTASSIUM 3.8 mmol/L (3.5-5.1)
[2023-04-24 15:45] LABS: CALCIUM 8.2 mg/dL (8.5-10.1)
[2023-04-24 15:46] LABS: ALBUMIN 3.1 g/dl (3.4-5.0); BLOOD UREA NITROGEN 10.1 mg/dL (7-18)
[2023-04-24 15:48] LABS: TOT PROT 7.1 g/dl (6.4-8.2)
[2023-04-24 15:49] LABS: BILIRUBIN,TOTAL 0.3 mg/dL (0.2-1); CREATININE 0.8 mg/dL (0.55-1.3)
[2023-04-24 15:54] LABS: N-TERMINAL BNP 214.2 pg/ml (5-125)
[2023-04-24] MEDS: DEXTROSE 5%-NORMAL SALINE 1,000 ML IV SCH (17:07)
[2023-04-24] MEDS ORDERED: ALBUTEROL SO4 HFA INHALER IH PRN (20:26)
[2023-04-24] MEDS: INSULIN ASPART SLIDING SCALE (NOVOLOG) 1 VIAL SQ SCH (22:42)
[2023-04-25] MEDS: TRIMETHOBENZAMIDE HCL 200MG/2ML INJ IM PRN ×2 (00:48→08:20)
[2023-04-25] MEDS ORDERED: PROCHLORPERAZINE INJECTION 10 MG/2 ML VIAL IVPB ONE (05:15)
[2023-04-25] MEDS ORDERED: FAMOTIDINE 20 MG/50 ML IVPB 20 MG/50 ML MG IVPB ONE (05:17)
[2023-04-25] MEDS ORDERED: INSULIN (NOVOLOG) ASPART 100 UNITS/ML 10ML VIAL ONE ×6 (05:41→21:58)
[2023-04-25] MEDS: INSULIN ASPART SLIDING SCALE (NOVOLOG) 1 VIAL SQ SCH ×4 (06:18→22:02)
[2023-04-25] MEDS: ALBUTEROL SO4 2.5/IPRATROPIUM 0.5 INH SOL 3 ML VIAL.NEB. NEB SCH ×4 (08:10→21:02)
[2023-04-25 09:00] LABS: BASO % 0.4 % (0-2.0); EOS % 0.1 % (0-4.5); HEMATOCRIT 24.4 % (32.4-45.2); HEMOGLOBIN 7.5 GM/dL (10.7-15.3); LYMPH % 13.2 % (8-40); MCH 21.5 pg (25.7-33.7); MCHC 30.9 g/dl (32.0-36.0); MEAN CELL VOLUME 69.6 fl (80-96); MEAN PLT VOLUME 9.1 fl (7.5-11.1); MONO % 5.2 % (3.8-10.2); NEUT % 81.1 % (42.8-82.8); PLATELET COUNT 320 10^3/uL (134-434); RDW 21.9 % (11.6-15.6); WHITE BLOOD COUNT 5.3 K/mm3 (4.0-10.0)
[2023-04-25 09:50] LABS: ANISOCYTOSIS 2+; MACROCYTOSIS 0
[2023-04-25 10:13] LABS: POTASSIUM 3.5 mmol/L (3.5-5.1)
[2023-04-25 10:19] LABS: ALBUMIN 2.8 g/dl (3.4-5.0); BLOOD UREA NITROGEN 6.6 mg/dL (7-18); CALCIUM 7.9 mg/dL (8.5-10.1); MAGNESIUM 1.6 mg/dL (1.8-2.4)
[2023-04-25 10:22] LABS: CREATININE 0.7 mg/dL (0.55-1.3)
[2023-04-25 10:24] LABS: BILIRUBIN,TOTAL 0.4 mg/dL (0.2-1); TOT PROT 6.6 g/dl (6.4-8.2)
[2023-04-25] MEDS ORDERED: REMDESIVIR 200 MG in SODIUM CHLORIDE 250 ML IVPB ONE (13:00)
[2023-04-25] MEDS: ONDANSETRON 4 MG/2 ML VIAL IVPB PRN (15:41)
[2023-04-25 15:51] LABS: COCAINE, UR NEGATIVE (NEGATIVE); OPIATES, URI NEGATIVE (NEGATIVE); URINE BARBITURATES NEGATIVE (NEGATIVE)
[2023-04-25 15:52] LABS: METHADONE, UR NEGATIVE (NEGATIVE); PHENCYCLIDINE,URINE NEGATIVE (NEGATIVE); URINE BENZODIAZEPINES NEGATIVE (NEGATIVE)
[2023-04-25 15:54] LABS: URINE AMPHETAMINES NEGATIVE (NEGATIVE)
[2023-04-25] MEDS: DEXTROSE 5%-NORMAL SALINE 1,000 ML IV SCH ×2 (18:27→23:11)
[2023-04-25] MEDS ORDERED: ACETAMINOPHEN 1000 MG/100 ML BAG IVPB ONE (20:57)
[2023-04-26] MEDS: ONDANSETRON 4 MG/2 ML VIAL IVPB PRN (06:24)
[2023-04-26 06:33] VITALS: RESP 18
[2023-04-26] MEDS: INSULIN ASPART SLIDING SCALE (NOVOLOG) 1 VIAL SQ SCH ×2 (06:54→11:55)
[2023-04-26] MEDS: ALBUTEROL SO4 2.5/IPRATROPIUM 0.5 INH SOL 3 ML VIAL.NEB. NEB SCH ×3 (07:48→15:09)
[2023-04-26 09:45] LABS: BASO % 0.3 % (0-2.0); EOS % 0.1 % (0-4.5); HEMATOCRIT 26.2 % (32.4-45.2); HEMOGLOBIN 8.1 GM/dL (10.7-15.3); MCH 21.3 pg (25.7-33.7); MEAN CELL VOLUME 68.6 fl (80-96); MEAN PLT VOLUME 8.9 fl (7.5-11.1); MONO % 5.1 % (3.8-10.2); NEUT % 82.5 % (42.8-82.8); PLATELET COUNT 290 10^3/uL (134-434); RBC 3.83 M/mm3 (3.60-5.2); RDW 21.7 % (11.6-15.6); WHITE BLOOD COUNT 4.6 K/mm3 (4.0-10.0)
[2023-04-26] MEDS ORDERED: POLYETHYLENE GLYCOL (HEALTHYLAX) 3350 17 GM PACKET PO SCH (10:00)
[2023-04-26 10:03] LABS: POTASSIUM 3.3 mmol/L (3.5-5.1)
[2023-04-26 10:14] LABS: CALCIUM 8.6 mg/dL (8.5-10.1)
[2023-04-26 10:15] LABS: ALBUMIN 2.8 g/dl (3.4-5.0)
[2023-04-26] MEDS ORDERED: ACETAMINOPHEN 500 MG TABLET (FP) PO ONE (10:15)
[2023-04-26 10:18] LABS: CREATININE 0.7 mg/dL (0.55-1.3)
[2023-04-26 10:20] LABS: TOT PROT 6.8 g/dl (6.4-8.2)
[2023-04-26 10:27] LABS: BILIRUBIN,TOTAL 0.6 mg/dL (0.2-1)
[2023-04-26] MEDS ORDERED: INSULIN (NOVOLOG) ASPART 100 UNITS/ML 10ML VIAL ONE (11:35)
[2023-04-26] MEDS ORDERED: POTASSIUM CHLORIDE TABS 20 MEQ TABLET.ER (FP) PO ONE (12:00)
[2023-04-26] MEDS ORDERED: REMDESIVIR 100 MG in SODIUM CHLORIDE 250 ML IVPB SCH (13:00)
[2023-04-26] MEDS ORDERED: ACETAMINOPHEN 325 MG TABLET (FP) PO PRN (14:30)
[2023-04-26] MEDS ORDERED: BENZOCAINE/MENTHOL (CHLORASEPTIC ) LOZENGE MM PRN (14:32)
[2023-04-26] MEDS ORDERED: PHENOL 177 ML SPRAY BOTTLE MM PRN (14:32)
[2023-04-26 15:07] VITALS: BP 117/57; PULSE 78; TEMP 99.7
[2023-04-26 16:52] VITALS: BMI 42.3
[2023-04-26] MEDS ORDERED: PREGABALIN 100 MG CAPSULE PO SCH ×2 (22:00)
[2023-04-26] MEDS ORDERED: INSULIN (LEVEMIR) 100 UNITS/ML UNITS SQ SCH (22:00)
[2023-04-27] MEDS ORDERED: LOSARTAN POTASSIUM 25 MG TABLET PO SCH (10:00)
[2023-04-27] MEDS ORDERED: LORATADINE 10 MG TABLET PO SCH (10:00)
[2023-04-27] MEDS ORDERED: FLUTICASONE PROP 0.05% 16 GM NASAL SPRAY NS SCH (10:00)
[2023-04-27] MEDS ORDERED: FLUTICASONE/UMECLIDIN/VILANTER(200-62.5-25 TRELEGY ELLIPTA) INAHLER IH SCH (10:00)
== END 2023-04-26 16:42 | disposition left against medical advice (07) | DRG 137 ==
LOC: JER 11:22 → JERBED 17:05 → J8W 04-25 03:30
PROVIDERS: ADMIT Family Medicine; ATTEND Family Medicine
PROC: XW033E5 Introduction of Remdesivir Anti-infective into Peripheral Vein, Percutaneous Approach, New Technology Group 5 (ICD-10-PCS; principal; 2023-04-25)
DX: U07.1 COVID-19 (principal); E11.9 Type 2 diabetes mellitus without complications; J44.9 Chronic obstructive pulmonary disease, unspecified; Z99.81 Dependence on supplemental oxygen; E86.0 Dehydration; J96.11 Chronic respiratory failure with hypoxia; I34.0 Nonrheumatic mitral (valve) insufficiency; D64.9 Anemia, unspecified; Z79.4 Long term (current) use of insulin; E11.40 Type 2 diabetes mellitus with diabetic neuropathy, unspecified
CPT/HCPCS: 0241U-QW; 36415; 71045-TC-FY; 74177-TC; 76705-TC; 80053; 80307; 82550; 82553; 82728; 82962; 83540; 83550; 83735; 83880; 84443; 84484; 85025; 86850; 86900; 86901; 87040; 93005; 93010; 93306-TC; 94640; 99285-25; J0248; Q0162

== ENCOUNTER 2023-06-20 15:18 | Observation (INO) | payer OTHER ==
[2023-06-20] MEDS: AMPICILLIN NA/SULBACTAM NA 3 GM in DEXTROSE 5%-WATER 100 ML IVPB ONE (16:15)
[2023-06-20 16:27] VITALS: BMI 48.1
[2023-06-20] MEDS ORDERED: FAMOTIDINE 20 MG/50 ML IVPB 20 MG/50 ML MG IVPB ONE (18:14)
[2023-06-20] MEDS ORDERED: ACETAMINOPHEN INJECTION 100 ML IVPB ONE ×2 (18:14→22:34)
[2023-06-20] MEDS ORDERED: MAG HYDROX/AL HYDROX/SIMETH 30 ML UNIT-DOSE CUP ONE (18:14)
[2023-06-20] MEDS: FAMOTIDINE 20 MG/50 ML IVPB 20 MG/50 ML MG IVPB ONE (18:24)
[2023-06-20] MEDS: ACETAMINOPHEN 1000 MG/100 ML BAG IVPB ONE (18:24)
[2023-06-20] MEDS: MAG HYDROX/AL HYDROX/SIMETH 30 ML UNIT-DOSE CUP PO ONE (18:25)
[2023-06-20 18:36] LABS: BASO % 0.7 % (0-2.0); EOS % 0.6 % (0-4.5); HEMATOCRIT 22.7 % (32.4-45.2); LYMPH % 12.4 % (8-40); MCHC 29.6 g/dl (32.0-36.0); MEAN CELL VOLUME 67.3 fl (80-96); MEAN PLT VOLUME 9.1 fl (7.5-11.1); MONO % 3.5 % (3.8-10.2); NEUT % 82.8 % (42.8-82.8); PLATELET COUNT 477 10^3/uL (134-434); RBC 3.37 M/mm3 (3.60-5.2); RDW 22.6 % (11.6-15.6); WHITE BLOOD COUNT 9.5 K/mm3 (4.0-10.0)
[2023-06-20 18:43] LABS: MCH 19.9 pg (25.7-33.7)
[2023-06-20 18:45] LABS: HEMOGLOBIN 6.7 GM/dL (10.7-15.3)
[2023-06-20 18:56] LABS: POTASSIUM 4.2 mmol/L (3.5-5.1)
[2023-06-20 18:58] LABS: CALCIUM 9.2 mg/dL (8.5-10.1)
[2023-06-20 18:59] LABS: ALBUMIN 3.2 g/dl (3.4-5.0); BLOOD UREA NITROGEN 7.5 mg/dL (7-18); MAGNESIUM 1.9 mg/dL (1.8-2.4)
[2023-06-20 19:02] LABS: CREATININE 0.8 mg/dL (0.55-1.3)
[2023-06-20 19:03] LABS: BILIRUBIN,TOTAL 0.5 mg/dL (0.2-1)
[2023-06-20 19:04] LABS: TOT PROT 7.8 g/dl (6.4-8.2)
[2023-06-20 19:07] LABS: N-TERMINAL BNP 1608.8 pg/ml (5-125)
[2023-06-20 19:09] LABS: ANISOCYTOSIS 3+; MACROCYTOSIS 0; OVALOCYTE 1+; TARGET CELLS 1+
[2023-06-20] MEDS ORDERED: ONDANSETRON 4 MG/2 ML VIAL IVPUSH ONE (20:21)
[2023-06-20] MEDS: ONDANSETRON 4 MG/2 ML VIAL IVPUSH ONE ×2 (20:40→23:02)
[2023-06-20] MEDS: TRIMETHOBENZAMIDE HCL 200MG/2ML INJ IM ONE (20:40)
[2023-06-20] MEDS ORDERED: DOCUSATE SODIUM 100 MG CAPSULE (FP) PO PRN (21:16)
[2023-06-20] MEDS ORDERED: DOCUSATE SODIUM 100 MG CAPSULE (FP) PO ONE (22:34)
[2023-06-20] MEDS ORDERED: ONDANSETRON 4 MG/2 ML VIAL ONE (22:34)
[2023-06-20] MEDS: INSULIN ASPART SLIDING SCALE (NOVOLOG) 1 VIAL SQ SCH (23:03)
[2023-06-20] MEDS: ACETAMINOPHEN 1000 MG/100 ML BAG IVPB PRN (23:08)
[2023-06-21] MEDS: ALBUTEROL SO4 2.5/IPRATROPIUM 0.5 INH SOL 3 ML VIAL.NEB. NEB ONE (01:11)
[2023-06-21] MEDS: METOCLOPRAMIDE HCL INJECTION 10 MG/2 ML VIAL IVPUSH ONE (01:18)
[2023-06-21 02:55] VITALS: BP 174/76; PULSE 94; RESP 18; TEMP 97.2
[2023-06-21] MEDS ORDERED: ACETAMINOPHEN 325 MG TABLET (FP) ONE (03:04)
[2023-06-21] MEDS ORDERED: ACETAMINOPHEN INJECTION 100 ML IVPB ONE (05:42)
[2023-06-21] MEDS ORDERED: ONDANSETRON 4 MG/2 ML VIAL IVPUSH PRN (05:48)
[2023-06-21] MEDS ORDERED: ALBUTEROL SO4 2.5/IPRATROPIUM 0.5 INH SOL 3 ML VIAL.NEB. NEB PRN (05:49)
[2023-06-22] MEDS ORDERED: ACETAMINOPHEN 325 MG TABLET (FP) PO PRN (00:30)
== END 2023-06-21 09:00 | disposition left against medical advice (07) ==
LOC: JER 15:18 → JERBED 21:00
PROVIDERS: ADMIT Internal Medicine; ATTEND Family Medicine
PROC: 3E033NZ Introduction of Analgesics, Hypnotics, Sedatives into Peripheral Vein, Percutaneous Approach (ICD-10-PCS; principal; 2023-06-20)
PROC: 3E0F7GC Introduction of Other Therapeutic Substance into Respiratory Tract, Via Natural or Artificial Opening (ICD-10-PCS; 2023-06-20)
PROC: 3E023GC Introduction of Other Therapeutic Substance into Muscle, Percutaneous Approach (ICD-10-PCS; 2023-06-20)
PROC: 3E013VG Introduction of Insulin into Subcutaneous Tissue, Percutaneous Approach (ICD-10-PCS; 2023-06-20)
DX: I11.0 Hypertensive heart disease with heart failure (principal); I34.0 Nonrheumatic mitral (valve) insufficiency; R06.00 Dyspnea, unspecified; J44.9 Chronic obstructive pulmonary disease, unspecified; D50.9 Iron deficiency anemia, unspecified; Z99.81 Dependence on supplemental oxygen; G47.30 Sleep apnea, unspecified; R06.02 Shortness of breath; M32.9 Systemic lupus erythematosus, unspecified; K21.9 Gastro-esophageal reflux disease without esophagitis; E66.01 Morbid (severe) obesity due to excess calories; Z68.43 Body mass index [BMI] 50.0-59.9, adult; R77.8 Other specified abnormalities of plasma proteins; Z88.0 Allergy status to penicillin
CPT/HCPCS: 36415; 36430; 71045-TC-FY; 74177-TC; 80053; 82962; 83690; 83735; 83880; 84484; 85025; 86850; 86900; 86901; 86922; 93005; 93010; 94640; 96365; 96372; 96375; 96376; 99291; G0378; J0131; P9038; P9058; Q9967

== ENCOUNTER 2023-10-03 15:26 | Inpatient (IN) | payer OTHER ==
[2023-10-03 16:11] VITALS: BMI 39.5
[2023-10-03 16:50] LABS: VENOUS BASE EXCESS 0.6 mmol/L (-2-2); VENOUS O2 SATURATION 95.8 % (70-80); VENOUS PCO2 41.2 mmHg (38-52); VENOUS PH 7.407 (7.310-7.410)
[2023-10-03] MEDS: ALBUTEROL SO4 2.5/IPRATROPIUM 0.5 INH SOL 3 ML VIAL.NEB. NEB SCH (16:55)
[2023-10-03 17:03] LABS: BASO % 1.2 % (0-2.0); EOS % 3.7 % (0-4.5); HEMATOCRIT 22.7 % (32.4-45.2); LYMPH % 20.6 % (8-40); MCHC 29.5 g/dl (32.0-36.0); MEAN CELL VOLUME 65.3 fl (80-96); MEAN PLT VOLUME 8.7 fl (7.5-11.1); MONO % 8.6 % (3.8-10.2); NEUT % 65.9 % (42.8-82.8); PLATELET COUNT 409 10^3/uL (134-434); RBC 3.48 M/mm3 (3.60-5.2); RDW 23.4 % (11.6-15.6)
[2023-10-03 17:08] LABS: MCH 19.3 pg (25.7-33.7)
[2023-10-03 17:11] LABS: HEMOGLOBIN 6.7 GM/dL (10.7-15.3)
[2023-10-03] MEDS ORDERED: ALBUTEROL SO4 2.5/IPRATROPIUM 0.5 INH SOL 3 ML VIAL.NEB. NEB ONE (17:21)
[2023-10-03 17:24] LABS: CHLORIDE 97 mmol/L (98-107); SODIUM 124 mmol/L (136-145)
[2023-10-03 17:26] LABS: CALCIUM 8.8 mg/dL (8.5-10.1)
[2023-10-03 17:27] LABS: ALBUMIN 2.8 g/dl (3.4-5.0); BLOOD UREA NITROGEN 14.2 mg/dL (7-18); CO2 29 mmol/L (21-32); GLUCOSE,RANDOM 339 mg/dL (74-106); MAGNESIUM 2.1 mg/dL (1.8-2.4)
[2023-10-03 17:31] LABS: BILIRUBIN,TOTAL 0.1 mg/dL (0.2-1); TOT PROT 7.7 g/dl (6.4-8.2)
[2023-10-03 17:32] LABS: ALK PHOS 159 U/L (45-117)
[2023-10-03 17:35] LABS: N-TERMINAL BNP 366.2 pg/ml (5-125)
[2023-10-03 17:42] LABS: ANION GAP -2 mmol/L (4-13); POTASSIUM > 10.0 mmol/L (3.5-5.1); SGOT/AST 226 U/L (15-37); SGPT/ALT 33 U/L (13-61)
[2023-10-03 17:58] LABS: ANISOCYTOSIS 2+; MACROCYTOSIS 1+; OVALOCYTE 1+
[2023-10-03 18:00] LABS: PLATELET ESTIMATE ADEQUATE
[2023-10-03] MEDS ORDERED: guaiFENesin 200 MG/10 ML 10 ML UNIT-DOSE CUPS ONE (18:02)
[2023-10-03 18:03] LABS: PH,URINE 5.5 (5.0-8.0); URINE APPEARANCE CLEAR; URINE BILIRUBIN NEGATIVE (NEGATIVE); URINE COLOR YELLOW; URINE GLUCOSE (UA) 2+ (NEGATIVE); URINE KETONE TRACE (NEGATIVE); URINE LEUK ESTERASE NEGATIVE (NEGATIVE); URINE NITRITE NEGATIVE (NEGATIVE); URINE PROTEIN TRACE (NEGATIVE)
[2023-10-03] MEDS ORDERED: methylPREDNISolone NA SUCC 125 MG/2 ML VIAL ONE (18:03)
[2023-10-03] MEDS ORDERED: ACETAMINOPHEN INJECTION 100 ML IVPB ONE (18:03)
[2023-10-03] MEDS ORDERED: MAGNESIUM SULFATE IN WATER 2 GM/50 ML IVPB IVPB ONE (18:03)
[2023-10-03] MEDS: methylPREDNISolone NA SUCC 125 MG/2 ML VIAL IVPUSH ONE (18:22)
[2023-10-03] MEDS: ACETAMINOPHEN 1000 MG/100 ML BAG IVPB ONE (18:23)
[2023-10-03] MEDS: guaiFENesin 200 MG/10 ML 10 ML UNIT-DOSE CUPS PO ONE (18:23)
[2023-10-03] MEDS: MAGNESIUM SULF 50% (8.12 MEQ/2 ML-1 GM VIAL) IVPB ONE (18:43)
[2023-10-03] MEDS: SODIUM CHLORIDE 0.9% 500 ML INFUS.BAG IV ONE (19:58)
[2023-10-03 20:34] LABS: CHLORIDE 97 mmol/L (98-107); POTASSIUM 4.4 mmol/L (3.5-5.1); SODIUM 130 mmol/L (136-145)
[2023-10-03 20:37] LABS: CALCIUM 9.6 mg/dL (8.5-10.1)
[2023-10-03 20:38] LABS: ALBUMIN 3.2 g/dl (3.4-5.0); ANION GAP 4 mmol/L (4-13); CO2 29 mmol/L (21-32)
[2023-10-03 20:40] LABS: SGOT/AST 28 U/L (15-37)
[2023-10-03 20:41] LABS: BILIRUBIN,TOTAL 0.3 mg/dL (0.2-1); CREATININE 1.1 mg/dL (0.55-1.3); SGPT/ALT 21 U/L (13-61)
[2023-10-03 20:42] LABS: ALK PHOS 176 U/L (45-117); TOT PROT 7.3 g/dl (6.4-8.2)
[2023-10-03 20:45] LABS: GLUCOSE,RANDOM 453 mg/dL (74-106)
[2023-10-03] MEDS ORDERED: INSULIN REGULAR HUMAN 100 UNITS/ML *VIAL ONE (20:51)
[2023-10-03] MEDS: INSULIN REGULAR HUMAN 100 UNITS/ML *VIAL SQ ONE (20:55)
[2023-10-03] MEDS: INSULIN ASPART SLIDING SCALE (NOVOLOG) 1 VIAL SQ SCH (23:27)
[2023-10-03] MEDS: PREGABALIN 100 MG CAPSULE PO SCH (23:32)
[2023-10-03] MEDS: ZOLPIDEM TARTRATE 5 MG TABLET PO PRN (23:32)
[2023-10-03] MEDS: traMADol HCL 50 MG TABLET PO PRN (23:32)
[2023-10-04] MEDS: FUROSEMIDE 40 MG TABLET (FP) PO SCH (06:42)
[2023-10-04 09:01] LABS: IRON SERUM 24 ug/dL (50-175); TOTAL IRON BINDING CAPACITY 500 ug/dL (250-450)
[2023-10-04] MEDS: LOSARTAN POTASSIUM 25 MG TABLET PO SCH (09:14)
[2023-10-04] MEDS: FERROUS SO4 325 MG TABLET (FP) PO SCH (09:15)
[2023-10-04] MEDS: POTASSIUM CHLORIDE TABS 10 MEQ TABLET.ER (FP) PO SCH (09:15)
[2023-10-04] MEDS: FAMOTIDINE 40 MG TABLET PO SCH (09:15)
[2023-10-04 09:25] LABS: ANION GAP 7 mmol/L (4-13); BLOOD UREA NITROGEN 16.7 mg/dL (7-18); CALCIUM 9.9 mg/dL (8.5-10.1); CHLORIDE 98 mmol/L (98-107); CO2 26 mmol/L (21-32); CREATININE 0.9 mg/dL (0.55-1.3); GLUCOSE,RANDOM 424 mg/dL (74-106); SODIUM 131 mmol/L (136-145)
[2023-10-04 09:42] LABS: BASO % 0.1 % (0-2.0); HEMATOCRIT 25.5 % (32.4-45.2); HEMOGLOBIN 7.8 GM/dL (10.7-15.3); LYMPH % 7.7 % (8-40); MCH 20.4 pg (25.7-33.7); MCHC 30.5 g/dl (32.0-36.0); MEAN CELL VOLUME 66.7 fl (80-96); MEAN PLT VOLUME 8.9 fl (7.5-11.1); MONO % 1.3 % (3.8-10.2); NEUT % 90.9 % (42.8-82.8); PLATELET COUNT 397 10^3/uL (134-434); RBC 3.82 M/mm3 (3.60-5.2); RDW 24.4 % (11.6-15.6); WHITE BLOOD COUNT 7.4 K/mm3 (4.0-10.0)
[2023-10-04] MEDS: FLUTICASONE/UMECLIDIN/VILANTER(200-62.5-25 TRELEGY ELLIPTA) INAHLER IH SCH (09:47)
[2023-10-04] MEDS: PANTOPRAZOLE 40 MG TABLET PO SCH (10:29)
[2023-10-04 10:54] LABS: GAMMA GLUTAMYL TRANSPEPTIDASE 34 U/L (5-85)
[2023-10-04] MEDS: IRON SUCROSE INJECTION 200 MG in SODIUM CHLORIDE 100 ML IVPB ONE (11:48)
[2023-10-04] MEDS: ONDANSETRON *ODT* 4 MG TABLET SL PRN (13:06)
[2023-10-04] MEDS: ALBUTEROL SO4 2.5/IPRATROPIUM 0.5 INH SOL 3 ML VIAL.NEB. NEB PRN (15:04)
[2023-10-04] MEDS: guaiFENesin/D-METHORPHAN HB 10 ML UNIT-DOSE CUPS PO PRN (15:32)
[2023-10-04] MEDS: BENZOCAINE/MENTH/CETYLPYRD CL 1 EACH LOZENGE MM PRN (15:37)
[2023-10-04] MEDS: LORATADINE 10 MG TABLET PO SCH (15:40)
[2023-10-04] MEDS: FLUTICASONE PROP 0.05% 16 GM NASAL SPRAY NS SCH (21:45)
[2023-10-05 08:59] LABS: BASO % 0.9 % (0-2.0); EOS % 2.7 % (0-4.5); HEMATOCRIT 24.9 % (32.4-45.2); HEMOGLOBIN 7.7 GM/dL (10.7-15.3); LYMPH % 22.8 % (8-40); MCH 20.4 pg (25.7-33.7); MCHC 30.9 g/dl (32.0-36.0); MEAN CELL VOLUME 65.9 fl (80-96); MEAN PLT VOLUME 8.8 fl (7.5-11.1); MONO % 7.4 % (3.8-10.2); NEUT % 66.2 % (42.8-82.8); PLATELET COUNT 384 10^3/uL (134-434); RBC 3.78 M/mm3 (3.60-5.2); RDW 24.5 % (11.6-15.6); WHITE BLOOD COUNT 7.9 K/mm3 (4.0-10.0)
[2023-10-05] MEDS: IRON SUCROSE INJECTION 200 MG in SODIUM CHLORIDE 100 ML IVPB ONE (12:42)
[2023-10-05] MEDS: methylPREDNISolone NA SUCC 40 MG/1 ML VIAL IVPUSH SCH (14:37)
[2023-10-05] MEDS ORDERED: INSULIN (NOVOLOG) ASPART 100 UNITS/ML 10ML VIAL ONE (21:08)
[2023-10-05 21:40] LABS: MAGNESIUM 1.7 mg/dL (1.8-2.4)
[2023-10-05 21:43] LABS: PHOSPHOROUS 4.3 mg/dL (2.5-4.9)
[2023-10-05] MEDS: INSULIN (LEVEMIR) 100 UNITS/ML UNITS SQ SCH (21:50)
[2023-10-06 07:32] LABS: BASO % 0.2 % (0-2.0); HEMATOCRIT 25.8 % (32.4-45.2); HEMOGLOBIN 7.8 GM/dL (10.7-15.3); LYMPH % 8.1 % (8-40); MCH 20.3 pg (25.7-33.7); MCHC 30.1 g/dl (32.0-36.0); MEAN CELL VOLUME 67.5 fl (80-96); MONO % 2.2 % (3.8-10.2); NEUT % 89.5 % (42.8-82.8); PLATELET COUNT 410 10^3/uL (134-434); RBC 3.82 M/mm3 (3.60-5.2); RDW 24.6 % (11.6-15.6); WHITE BLOOD COUNT 12.6 K/mm3 (4.0-10.0)
[2023-10-06 07:54] LABS: POTASSIUM 4.5 mmol/L (3.5-5.1)
[2023-10-06 07:59] LABS: CALCIUM 9.9 mg/dL (8.5-10.1)
[2023-10-06 08:00] LABS: ALBUMIN 3.2 g/dl (3.4-5.0); BLOOD UREA NITROGEN 19.7 mg/dL (7-18)
[2023-10-06 08:03] LABS: CREATININE 0.8 mg/dL (0.55-1.3)
[2023-10-06 08:04] LABS: BILIRUBIN,TOTAL 0.3 mg/dL (0.2-1); TOT PROT 7.4 g/dl (6.4-8.2)
[2023-10-06] MEDS: IRON SUCROSE INJECTION 200 MG in SODIUM CHLORIDE 100 ML IVPB ONE (12:25)
[2023-10-06] MEDS ORDERED: INSULIN (NOVOLOG) ASPART 100 UNITS/ML 10ML VIAL ONE (12:29)
[2023-10-06] MEDS: INSULIN ASPART SLIDING SCALE (NOVOLOG) 1 VIAL SQ SCH (12:32)
[2023-10-06] MEDS: INSULIN (LEVEMIR) 100 UNITS/ML UNITS SQ SCH (21:40)
[2023-10-07] MEDS ORDERED: INSULIN (NOVOLOG) ASPART 100 UNITS/ML 10ML VIAL ONE (06:06)
[2023-10-07 09:43] LABS: BASO % 0.2 % (0-2.0); HEMATOCRIT 28.6 % (32.4-45.2); HEMOGLOBIN 8.8 GM/dL (10.7-15.3); MCHC 30.6 g/dl (32.0-36.0); MEAN CELL VOLUME 68.8 fl (80-96); MEAN PLT VOLUME 9.2 fl (7.5-11.1); MONO % 4.9 % (3.8-10.2); NEUT % 88.9 % (42.8-82.8); PLATELET COUNT 442 10^3/uL (134-434); RBC 4.17 M/mm3 (3.60-5.2); RDW 25.4 % (11.6-15.6); WHITE BLOOD COUNT 17.1 K/mm3 (4.0-10.0)
[2023-10-07 10:11] LABS: ANISOCYTOSIS 3+; MACROCYTOSIS 0
[2023-10-07] MEDS: predniSONE 20 MG TABLET (UD) PO SCH (11:33)
[2023-10-07] MEDS: ACETAMINOPHEN 325 MG TABLET (FP) PO PRN (14:15)
[2023-10-07] MEDS: INSULIN (NOVOLOG) ASPART 100 UNITS/ML 10ML VIAL SQ ONE (15:14)
[2023-10-07] MEDS: ALBUTEROL SO4 0.083% IH SOL 2.5 MG/3 ML VIAL.NEB. NEB PRN (15:21)
[2023-10-07] MEDS: SODIUM CHLORIDE 0.45% 1,000 ML IV SCH (17:24)
[2023-10-07 17:40] LABS: GLUCOSE,RANDOM 429 mg/dL (74-106)
[2023-10-07] MEDS: INSULIN (NOVOLOG MIX 70/30) 100 UNITS/ML MDV SQ ONE (18:21)
[2023-10-08] MEDS: predniSONE 20 MG TABLET (UD) PO SCH (09:58)
[2023-10-08] MEDS: LACTATED RINGERS SOLUTION 1,000 ML/1,000 ML INFUS.BAG IV SCH (10:10)
[2023-10-08 11:11] LABS: BASO % 0.2 % (0-2.0); EOS % 1.4 % (0-4.5); HEMATOCRIT 26.9 % (32.4-45.2); HEMOGLOBIN 8.1 GM/dL (10.7-15.3); LYMPH % 17.3 % (8-40); MCHC 30.3 g/dl (32.0-36.0); MEAN CELL VOLUME 69.3 fl (80-96); MEAN PLT VOLUME 8.8 fl (7.5-11.1); MONO % 8.7 % (3.8-10.2); NEUT % 72.4 % (42.8-82.8); PLATELET COUNT 380 10^3/uL (134-434); RBC 3.88 M/mm3 (3.60-5.2); WHITE BLOOD COUNT 14.5 K/mm3 (4.0-10.0)
[2023-10-08 11:34] LABS: CALCIUM 9.5 mg/dL (8.5-10.1); POTASSIUM 3.4 mmol/L (3.5-5.1)
[2023-10-08 11:36] LABS: ALBUMIN 2.9 g/dl (3.4-5.0); BLOOD UREA NITROGEN 25.4 mg/dL (7-18)
[2023-10-08 11:39] LABS: CREATININE 0.8 mg/dL (0.55-1.3)
[2023-10-08 11:40] LABS: TOT PROT 6.4 g/dl (6.4-8.2)
[2023-10-08 11:41] LABS: BILIRUBIN,TOTAL 0.3 mg/dL (0.2-1)
[2023-10-08] MEDS: ALBUTEROL SO4 2.5/IPRATROPIUM 0.5 INH SOL 3 ML VIAL.NEB. NEB SCH (12:13)
[2023-10-08] MEDS ORDERED: INSULIN (NOVOLOG MIX 70/30) 100 UNITS/ML MDV SQ ONE ×2 (18:15→19:28)
[2023-10-08] MEDS ORDERED: INSULIN (NOVOLOG) ASPART 100 UNITS/ML 10ML VIAL ONE ×2 (18:16→21:28)
[2023-10-08] MEDS ORDERED: INSULIN (LEVEMIR) 100 UNITS/ML UNITS SQ ONE (18:16)
[2023-10-08] MEDS: INSULIN (NOVOLOG MIX 70/30) 100 UNITS/ML MDV SQ ONE (18:19)
[2023-10-09 08:04] LABS: HEMATOCRIT 26.8 % (32.4-45.2); HEMOGLOBIN 8.2 GM/dL (10.7-15.3); MCH 21.4 pg (25.7-33.7); MCHC 30.5 g/dl (32.0-36.0); MEAN CELL VOLUME 70.2 fl (80-96); MEAN PLT VOLUME 8.8 fl (7.5-11.1); PLATELET COUNT 337 10^3/uL (134-434); RBC 3.82 M/mm3 (3.60-5.2); RDW 24.1 % (11.6-15.6); WHITE BLOOD COUNT 10.5 K/mm3 (4.0-10.0)
[2023-10-09 08:21] LABS: POTASSIUM 3.6 mmol/L (3.5-5.1)
[2023-10-09 08:22] LABS: CALCIUM 9.4 mg/dL (8.5-10.1)
[2023-10-09 08:23] LABS: BLOOD UREA NITROGEN 22.2 mg/dL (7-18); MAGNESIUM 2.3 mg/dL (1.8-2.4)
[2023-10-09 08:26] LABS: CREATININE 0.7 mg/dL (0.55-1.3)
[2023-10-09 10:11] LABS: N-TERMINAL BNP 265.7 pg/ml (5-125)
[2023-10-09 13:42] VITALS: BP 109/83; PULSE 85; RESP 16; TEMP 98.2
== END 2023-10-09 15:49 | disposition home health service (06) | DRG 194 ==
LOC: JER 15:26 → JERBED 18:43 → J8W 22:50 → OBSVTOIN 10-06 12:23
PROVIDERS: ADMIT Internal Medicine; ATTEND Family Medicine
DX: I11.0 Hypertensive heart disease with heart failure (principal); J44.0 Chronic obstructive pulmonary disease with (acute) lower respiratory infection; J44.1 Chronic obstructive pulmonary disease with (acute) exacerbation; J96.11 Chronic respiratory failure with hypoxia; I25.10 Atherosclerotic heart disease of native coronary artery without angina pectoris; J18.9 Pneumonia, unspecified organism; J98.11 Atelectasis; E87.1 Hypo-osmolality and hyponatremia; K21.9 Gastro-esophageal reflux disease without esophagitis; E11.40 Type 2 diabetes mellitus with diabetic neuropathy, unspecified; E11.65 Type 2 diabetes mellitus with hyperglycemia; D50.9 Iron deficiency anemia, unspecified; G47.00 Insomnia, unspecified; I44.7 Left bundle-branch block, unspecified; M32.9 Systemic lupus erythematosus, unspecified; I49.3 Ventricular premature depolarization; M06.9 Rheumatoid arthritis, unspecified; E66.9 Obesity, unspecified; Z68.39 Body mass index [BMI] 39.0-39.9, adult; Z88.0 Allergy status to penicillin
CPT/HCPCS: 0241U-QW; 36415; 36430; 70450-TC; 71045-TC-FY; 80048; 80053; 81003; 82010; 82803; 82947; 82962; 82977; 83036; 83540; 83550; 83735; 83880; 84100; 84484; 85025; 85027; 86850; 86900; 86901; 86922; 87040; 87070; 87086; 87205; 87633; 87899; 93005; 93010; 94640; 97116-GP; 97161-GP; 99285-25; G0378; J0131; J1756; P9058; Q0162

== ENCOUNTER 2023-12-03 07:01 | Observation (INO) | payer OTHER ==
[2023-12-03] MEDS ORDERED: traMADol HCL 50 MG TABLET ONE (07:53)
[2023-12-03] MEDS ORDERED: PREGABALIN 100 MG CAPSULE ONE ×2 (07:56→14:13)
[2023-12-03] MEDS: traMADol HCL 50 MG TABLET PO ONE (07:58)
[2023-12-03] MEDS: PREGABALIN 100 MG CAPSULE PO ONE (07:59)
[2023-12-03] MEDS ORDERED: ACETAMINOPHEN INJECTION 100 ML IVPB ONE (08:02)
[2023-12-03] MEDS ORDERED: FAMOTIDINE 20 MG/50 ML IVPB 20 MG/50 ML MG IVPB ONE (08:02)
[2023-12-03] MEDS ORDERED: ONDANSETRON 4 MG/2 ML VIAL ONE ×2 (08:02→12:16)
[2023-12-03] MEDS: ONDANSETRON 4 MG/2 ML VIAL IVPUSH ONE ×2 (08:10→12:25)
[2023-12-03] MEDS: SODIUM CHLORIDE 1,000 ML IV STA (08:15)
[2023-12-03] MEDS: ACETAMINOPHEN 1000 MG/100 ML BAG IVPB ONE (08:15)
[2023-12-03] MEDS: FAMOTIDINE 20 MG/50 ML IVPB 20 MG/50 ML MG IVPB ONE (08:20)
[2023-12-03 09:19] LABS: BASO % 0.8 % (0-2.0); EOS % 0.8 % (0-4.5); HEMATOCRIT 29.4 % (32.4-45.2); HEMOGLOBIN 8.9 GM/dL (10.7-15.3); LYMPH % 5.7 % (8-40); MCH 22.5 pg (25.7-33.7); MCHC 30.4 g/dl (32.0-36.0); MEAN PLT VOLUME 8.4 fl (7.5-11.1); MONO % 4.1 % (3.8-10.2); NEUT % 88.6 % (42.8-82.8); PLATELET COUNT 464 10^3/uL (134-434); RBC 3.97 M/mm3 (3.60-5.2); RDW 28.1 % (11.6-15.6); WHITE BLOOD COUNT 9.7 K/mm3 (4.0-10.0)
[2023-12-03 09:55] LABS: VENOUS BASE EXCESS -16.3 mmol/L (-2-2); VENOUS PH 6.956 (7.310-7.410)
[2023-12-03 10:13] LABS: POTASSIUM 3.6 mmol/L (3.5-5.1)
[2023-12-03 10:15] LABS: ANISOCYTOSIS 2+; MACROCYTOSIS 1+
[2023-12-03 10:16] LABS: ALBUMIN 4.1 g/dl (3.4-5.0); BLOOD UREA NITROGEN 8.7 mg/dL (7-18); CALCIUM 9.7 mg/dL (8.5-10.1)
[2023-12-03 10:19] LABS: CREATININE 0.8 mg/dL (0.55-1.3)
[2023-12-03 10:20] LABS: BILIRUBIN,TOTAL 0.7 mg/dL (0.2-1); TOT PROT 7.8 g/dl (6.4-8.2)
[2023-12-03] MEDS ORDERED: ALBUTEROL SO4 2.5/IPRATROPIUM 0.5 INH SOL 3 ML VIAL.NEB. NEB ONE (10:30)
[2023-12-03] MEDS: ALBUTEROL SO4 2.5/IPRATROPIUM 0.5 INH SOL 3 ML VIAL.NEB. NEB ONE (10:43)
[2023-12-03 10:52] LABS: VENOUS BASE EXCESS -0.9 mmol/L (-2-2); VENOUS O2 SATURATION 30.1 % (70-80); VENOUS PCO2 42.9 mmHg (38-52); VENOUS PH 7.372 (7.310-7.410)
[2023-12-03] MEDS ORDERED: morphine SULFATE 4 MG/ML VIAL ONE (12:16)
[2023-12-03] MEDS: morphine CARPU-JECT 4 MG/1 ML DISP.SYRIN IVPUSH ONE (12:25)
[2023-12-03] MEDS ORDERED: ALBUTEROL SO4 0.083% IH SOL 2.5 MG/3 ML VIAL.NEB. NEB PRN (12:52)
[2023-12-03] MEDS ORDERED: PANTOPRAZOLE 40 MG TABLET PO ONE (14:13)
[2023-12-03] MEDS ORDERED: LOSARTAN POTASSIUM 25 MG TABLET ONE (14:13)
[2023-12-03] MEDS ORDERED: LORATADINE 10 MG TABLET ONE (14:14)
[2023-12-03] MEDS ORDERED: CYCLOBENZAPRINE HCL 5 MG TABLET ONE (14:14)
[2023-12-03] MEDS ORDERED: FUROSEMIDE 40 MG/4 ML INJECTABLE VIAL ONE (14:14)
[2023-12-03] MEDS ORDERED: POTASSIUM CHLORIDE 10 MEQ in SODIUM CHLORIDE 0.45% 1,000 ML IVPB SCH (16:00)
[2023-12-03] MEDS: LORATADINE 10 MG TABLET PO SCH (16:06)
[2023-12-03] MEDS: CYCLOBENZAPRINE HCL 5 MG TABLET PO SCH (16:06)
[2023-12-03] MEDS: PREGABALIN 100 MG CAPSULE PO SCH (16:07)
[2023-12-03] MEDS: LOSARTAN POTASSIUM 50 MG TABLET PO SCH (16:07)
[2023-12-03] MEDS: PANTOPRAZOLE 40 MG TABLET PO SCH (16:08)
[2023-12-03] MEDS: FLUTICASONE PROP 0.05% 16 GM NASAL SPRAY NS SCH (16:20)
[2023-12-03] MEDS: FLUTICASONE/UMECLIDIN/VILANTER(200-62.5-25 TRELEGY ELLIPTA) INAHLER IH SCH (16:21)
[2023-12-03 16:52] LABS: EPI CELLS 6 /uL (0-25.1); HYALINE CASTS 0 /uL (0-3.1); URINE APPEARANCE CLEAR; URINE BACTERIA 34 /uL (0-1359); URINE BILIRUBIN NEGATIVE (NEGATIVE); URINE COLOR YELLOW; URINE GLUCOSE (UA) 3+ (NEGATIVE); URINE KETONE 3+ (NEGATIVE); URINE LEUK ESTERASE NEGATIVE (NEGATIVE); URINE NITRITE NEGATIVE (NEGATIVE); URINE PROTEIN 3+ (NEGATIVE); URINE RBC 47 /uL (0-23.9); URINE UROBILINOGEN 0.2 mg/dL (0.2-1.0); URINE WBC 2 /uL (0-25.8)
[2023-12-03] MEDS: INSULIN ASPART SLIDING SCALE (NOVOLOG) 1 VIAL SQ SCH (17:15)
[2023-12-03] MEDS: INSULIN (LEVEMIR) 100 UNITS/ML UNITS SQ SCH (22:10)
[2023-12-04 01:58] VITALS: BMI 40.5
[2023-12-04] MEDS: FUROSEMIDE 40 MG/4 ML INJECTABLE VIAL IVPUSH SCH (08:28)
[2023-12-04 10:11] LABS: N-TERMINAL BNP 952.4 pg/ml (5-125)
[2023-12-04] MEDS: ONDANSETRON *ODT* 4 MG TABLET SL PRN (21:43)
[2023-12-05 02:49] LABS: CALCIUM 9.4 mg/dL (8.5-10.1)
[2023-12-05 02:50] LABS: ALBUMIN 3.7 g/dl (3.4-5.0); BLOOD UREA NITROGEN 31.3 mg/dL (7-18)
[2023-12-05 02:53] LABS: CREATININE 1.5 mg/dL (0.55-1.3); PHOSPHOROUS 4.2 mg/dL (2.5-4.9)
[2023-12-05 02:54] LABS: BILIRUBIN,TOTAL 0.4 mg/dL (0.2-1)
[2023-12-05 02:55] LABS: TOT PROT 7.8 g/dl (6.4-8.2)
[2023-12-05 07:13] LABS: HEMATOCRIT 31.2 % (32.4-45.2); HEMOGLOBIN 9.7 GM/dL (10.7-15.3); MCHC 31.1 g/dl (32.0-36.0); MEAN CELL VOLUME 74.1 fl (80-96); MEAN PLT VOLUME 8.4 fl (7.5-11.1); PLATELET COUNT 465 10^3/uL (134-434); RBC 4.21 M/mm3 (3.60-5.2); RDW 27.5 % (11.6-15.6); WHITE BLOOD COUNT 7.9 K/mm3 (4.0-10.0)
[2023-12-05 07:18] LABS: EOS % 1.3 % (0-4.5); HEMOGLOBIN 9.7 GM/dL (10.7-15.3); LYMPH % 20.3 % (8-40); MCHC 31.2 g/dl (32.0-36.0); MEAN CELL VOLUME 73.7 fl (80-96); MEAN PLT VOLUME 8.5 fl (7.5-11.1); MONO % 9.4 % (3.8-10.2); PLATELET COUNT 481 10^3/uL (134-434); RDW 27.6 % (11.6-15.6); WHITE BLOOD COUNT 7.9 K/mm3 (4.0-10.0)
[2023-12-05 10:45] VITALS: BP 117/75; PULSE 78; RESP 20; TEMP 98.4
== END 2023-12-05 11:46 | disposition home or self-care (01) ==
LOC: JER 07:01 → JERBED 11:21 → J4W 21:23
PROVIDERS: ADMIT Family Medicine; ATTEND Family Medicine
PROC: 3E033NZ Introduction of Analgesics, Hypnotics, Sedatives into Peripheral Vein, Percutaneous Approach (ICD-10-PCS; principal; 2023-12-03)
PROC: 3E0F7GC Introduction of Other Therapeutic Substance into Respiratory Tract, Via Natural or Artificial Opening (ICD-10-PCS; 2023-12-03)
PROC: 3E033GC Introduction of Other Therapeutic Substance into Peripheral Vein, Percutaneous Approach (ICD-10-PCS; 2023-12-03)
PROC: 3E013VG Introduction of Insulin into Subcutaneous Tissue, Percutaneous Approach (ICD-10-PCS; 2023-12-03)
PROC: 3E033NZ Introduction of Analgesics, Hypnotics, Sedatives into Peripheral Vein, Percutaneous Approach (ICD-10-PCS; 2023-12-03)
PROC: 3E0337Z Introduction of Electrolytic and Water Balance Substance into Peripheral Vein, Percutaneous Approach (ICD-10-PCS; 2023-12-03)
DX: Z87.891 Personal history of nicotine dependence (principal); Z88.0 Allergy status to penicillin; Z91.018 Allergy to other foods; I25.10 Atherosclerotic heart disease of native coronary artery without angina pectoris; I11.9 Hypertensive heart disease without heart failure; J44.9 Chronic obstructive pulmonary disease, unspecified; E11.9 Type 2 diabetes mellitus without complications; M32.9 Systemic lupus erythematosus, unspecified; E66.9 Obesity, unspecified; Z99.81 Dependence on supplemental oxygen; F19.21 Other psychoactive substance dependence, in remission; F12.21 Cannabis dependence, in remission
CPT/HCPCS: 0241U-QW; 36415; 71045-TC-FY; 74177-TC; 80048; 80053; 81003; 82010; 82728; 82803; 82962; 83036; 83540; 83550; 83605; 83690; 83735; 83880; 84100; 84466; 84484; 85025; 85027; 87086; 87186; 93005; 93010; 93306-TC; 94640; 96361; 96365; 96372; 96375; 96376; 97116-GP; 97161-GP; 99285-25; G0378; J0131; Q0162; Q9967